=== PATIENT | female | born 1955 | race Caucasian/White ===

== ENCOUNTER 2020-06-25 13:49 | Emergency (ER) | payer MEDICARE, SELFPAY ==
[2020-06-25 16:20] VITALS: BP 145/79; PULSE 93; RESP 18; TEMP 37.3; O2SAT 100; BMI 22.0
--- NOTE | 2020-06-25 21:10 | ED.GENADULT ---
HPI - General Adult General Chief complaint: General Medical Stated complaint: multiple complaints Time Seen by Provider: 06/25/20 21:10 History of Present Illness HPI narrative: This is a 64-year-old female who presents with 4 weeks of numbness and lack of circulation from the neck down. She states that she has been evaluated by her primary care provider within the past week and at that time lab work was done. She expresses concern that nothing was found and yet she is still having her symptoms. She denies any fevers, chills, nausea, vomiting, abdominal discomfort, urinary symptoms, chest pain but does state that she is having some difficulty breathing constantly. She self endorses that she does have a history of anxiety in pressure in and when evaluated by her primary care provider she is upset that the recommendation after her workup was that she should probably see a psychiatrist. She states she does not feel like she needs to see a psychiatrist because she has a legitimate medical problems. Related Data Allergies Allergy/AdvReac Type Severity Reaction Status Date / Time silver Allergy Mild rash Unverified 06/07/20 16:03 [From TEGADERM AG MESH] penicillin V Allergy Unknown anaphylaxis Verified 01/10/20 00:00 Penicillins [PENICILLINS] Allergy Unknown UNKNOWN Unverified 06/07/20 16:03 Clindamycin HCl Allergy Unknown diarrhea Uncoded 01/10/20 00:00 Review of Systems Review of Systems: Pertinent positives and negatives as stated in HPI and 10 point review of systems is otherwise negative. PMFSH Past Medical History Source: nursing notes reviewed Social History Social History Advance Directives: No Advance Directives Information Provided: No Physical Exam Vital Signs and I&O and Narrative: Vital Signs and I&O: Vital Signs Temp 98.6 F 06/26/20 04:33 Pulse 64 06/26/20 04:33 Resp 16 06/26/20 04:33 BP 130/71 06/26/20 04:33 Pulse Ox 99 06/25/20 22:53 Intake & Output 06/25/20 06/25/20 06/26/20 06:59 18:59 06:59 Weight 54.683 kg Body Mass Index 22.0 VITAL SIGNS: Reviewed. GENERAL: Well developed, well nourished, in no acute distress. HEAD: Normocephalic/atraumatic, Posterior oropharynx was without edema, erythema or exudate. EYES: PERRLA, Pupils <>, EOMI intact without pain, no nystagmus/pallor/icterus noted EARS: Ext canals without abnormality, TMs non-bulging and non-erythematous NOSE: Nares patent bilateral OROPHARYNX: no oral lesions noted, posterior pharynx clear and non-erythematous without noted tonsillar enlargement/erythema/exudates NECK: Supple, no adenopathy LUNGS: Normal breath sounds. No adventitious sounds or accessory muscle use. SpO2<> CARDIOVASCULAR: Regular rate and rhythm without noted murmurs, no JVD or lower extremity edema. ABDOMEN: Soft, non-tender, non-distended with bowel sounds. No rigidity. No guarding. No palpable masses or hernias noted MUSCULOSKELETAL: No tenderness, deformities, or effusions noted on gross inspection. EXTREMITIES: No cyanosis, clubbing or edema. SKIN: Inspection of the skin reveals no rashes, ulcerations, jaundice, pallor, or petechiae. NEUROLOGIC: Alert and oriented x 3. Strength and sensation to light touch were grossly intact x 4. Course Course Course Narrative: This is a 64-year-old female with history and clinical presentation inconsistent with acute medical problem and suspect possible psychiatric component possibly major depression/anxiety but will medically clear prior to psychiatric evaluation. review of all investigations is negative for any acute findings to suggest infection, anemia, electrolyte, or inflammatory etiologies. 2358: I spoke with patient at bedside and she continues to endorse that she has no hips to sit on and that she has no blood flow to her head and her insides are compressed . When I informed her that her laboratory workup was within normal limits and that I thought it would be a good idea for her to speak with 1 of our crisis team members she adamantly states that this is not that type of a problem. She easily lifted her legs and got out of bed standing up and was observed to be bending over and picking the nurse call light off of the floor without any evidence of gait instability or ataxia. However, patient continues to describe deformed body parts or absent body parts. On further discussion, patient states that she is willing to speak with somebody from the crisis team. She is medically cleared for further psychiatric evaluation to address her concerns. On [facility] evaluation patient is neither a harm to herself or others and has good support systems with a at home. Patient was offered inpatient psych but declined and she was also provided an option for PHP which she also Declined. Patient declined waiting for psychiatric consultation and wishes to leave and go home. Patient is stable for discharge to home with further follow-up with her primary care provider. Medical Decision Making Lab Data Result diagrams: 06/25/20 22:02 06/25/20 22:02 Labs: Lab Results 06/25/20 06/25/20 06/25/20 Range/Units 22:02 22:02 22:02 WBC 5.3 (4.8-10.8) X10*3/uL RBC 4.51 (4.20-5.50) X10*6/uL Hgb 14.7 (12.0-16.0) g/dl Hct 43.2 (37-47) % MCV 95.8 (80-98) fL MCH 32.6 (27.0-33.0) pg MCHC 34.0 (31.0-35.0) g/dl RDW 12.8 (11.0-16.0) % Plt Count 227 (160-400) X10*3/uL MPV 10.7 (9.4-12.3) fL Immature Gran % (Auto) 0.2 (0.0-0.4) % Neut % (Auto) 49.8 (45-73) % Lymph % (Auto) 36.0 (20-40) % [place] % (Auto) 7.4 (2-11) % Eos % (Auto) 4.7 H (0-4) % Baso % (Auto) 1.9 (0-2) % Neut # (Auto) 2.6 (2.0-8.3) X10*3/uL Lymph # (Auto) 1.9 (1.2-4.9) X10*3/uL [place] # (Auto) 0.4 (0.1-1.2) X10*3/uL Eos # (Auto) 0.3 (0.0-0.4) X10*3/uL Baso # (Auto) 0.1 (0.0-0.2) X10*3/uL Abs Immat Gran (auto) 0.01 (0.00-0.03) X10*3/uL Absolute Nucleated RBC 0.000 (0.0-0.012) X10*3/uL Nucleated RBC % (auto) 0.0 (0.0-0.2) /100WBC ESR 12 (0-20) MM/HR Sodium 141 (135-145) mmol/L Potassium 4.1 (3.3-5.1) mmol/l Chloride 105 (96-108) mmol/L Carbon Dioxide 29 (22-29) mmol/L Anion Gap 11 L (12-20) BUN 13 (9-16) mg/dL Creatinine 0.78 (0.5-1.4) mg/dL Estim Creat Clear Calc 57.5 Estimated GFR > 60 Random Glucose 91 (60-115) mg/dL Calcium 9.7 (8.4-10.2) mg/dL Total Bilirubin 0.7 (0.0-1.0) mg/dL AST 11 (5-31) U/L ALT 8 (0-31) U/L Alkaline Phosphatase 45 (39-117) U/L Total Protein 6.9 (6.5-8.0) g/dL Albumin 4.4 (3.5-5.0) g/dL TSH 2.34 (0.32-4.0) mIU/mL Urine Color Urine Appearance Urine pH (5.0-8.0) Ur Specific [place] (1.005-1.025) Urine Protein (NEG-TRACE) MG/DL Urine Glucose (UA) (NEG) MG/DL Urine Ketones (NEG) MG/DL Urine Blood (NEG) Urine Nitrite (NEG) Ur Leukocyte Esterase (NEG) 06/26/20 Range/Units 00:05 WBC (4.8-10.8) X10*3/uL RBC (4.20-5.50) X10*6/uL Hgb (12.0-16.0) g/dl Hct (37-47) % MCV (80-98) fL MCH (27.0-33.0) pg MCHC (31.0-35.0) g/dl RDW (11.0-16.0) % Plt Count (160-400) X10*3/uL MPV (9.4-12.3) fL Immature Gran % (Auto) (0.0-0.4) % Neut % (Auto) (45-73) % Lymph % (Auto) (20-40) % [place] % (Auto) (2-11) % Eos % (Auto) (0-4) % Baso % (Auto) (0-2) % Neut # (Auto) (2.0-8.3) X10*3/uL Lymph # (Auto) (1.2-4.9) X10*3/uL [place] # (Auto) (0.1-1.2) X10*3/uL Eos # (Auto) (0.0-0.4) X10*3/uL Baso # (Auto) (0.0-0.2) X10*3/uL Abs Immat Gran (auto) (0.00-0.03) X10*3/uL Absolute Nucleated RBC (0.0-0.012) X10*3/uL Nucleated RBC % (auto) (0.0-0.2) /100WBC ESR (0-20) MM/HR Sodium (135-145) mmol/L Potassium (3.3-5.1) mmol/l Chloride (96-108) mmol/L Carbon Dioxide (22-29) mmol/L Anion Gap (12-20) BUN (9-16) mg/dL Creatinine (0.5-1.4) mg/dL Estim Creat Clear Calc Estimated GFR Random Glucose (60-115) mg/dL Calcium (8.4-10.2) mg/dL Total Bilirubin (0.0-1.0) mg/dL AST (5-31) U/L ALT (0-31) U/L Alkaline Phosphatase (39-117) U/L Total Protein (6.5-8.0) g/dL Albumin (3.5-5.0) g/dL TSH (0.32-4.0) mIU/mL Urine Color YELLOW Urine Appearance CLEAR Urine pH 6.5 (5.0-8.0) Ur Specific [place] 1.025 (1.005-1.025) Urine Protein NEG (NEG-TRACE) MG/DL Urine Glucose (UA) NEG (NEG) MG/DL Urine Ketones 5 (NEG) MG/DL Urine Blood NEG (NEG) Urine Nitrite NEG (NEG) Ur Leukocyte Esterase NEG (NEG) ECG Data Attestation: I personally reviewed and interpreted this ECG as follows: Prior ECG tracings: not available for review Interpretation: NSR, HR-67, no evidence of ischemia. Discharge Plan Discharge Clinical Impression: Encounter for medical screening examination, Delusion Patient Disposition: Home, Self-Care Instructions: Weakness (ED) Additional Instructions: 1. please follow-up with your primary care provider today for further outpatient arrangements to facilitate your current condition. 2. resume all home medications as prescribed. The patient and/or family acknowledge understanding of results (as applicable), diagnosis, treatment plan, need for follow up, and symptoms that should prompt a return to the emergency room. Referrals: Shavon Awad MD [Primary Care Provider] - 2 days (Patient will require further assistance in getting necessary outpatient treatment and resources.)
--- NOTE | 2020-06-25 21:14 | ECG_ITS ---
Test Reason : WEAKNESS Blood Pressure : / mmHG Vent. Rate : 067 BPM Atrial Rate : 067 BPM P-R Int : 140 ms QRS Dur : 080 ms QT Int : 408 ms P-R-T Axes : 070 056 042 degrees QTc Int : 431 ms Normal sinus rhythm Normal ECG When compared with ECG of 25-JUN-2016 14:24, No significant change was found Referred By: Shiloh Cazares Electronically Signed By:WALTER RENDON
--- NOTE | 2020-06-25 21:16 | XR_ITS ---
EXAMINATION: PORTABLE CHEST 1 VIEW CLINICAL INFORMATION: SOB . COMPARISON: No recent pertinent prior studies are available for comparison. TECHNIQUE: Portable frontal view of the chest was obtained. FINDINGS: The lungs are well expanded. Mild chronic appearing reticular markings but no superimposed focal infiltrate, effusion, edema, or pneumothorax. Cardiac and mediastinal silhouettes are within normal limits for technique. No acute bony abnormality seen. IMPRESSION: No evidence of acute disease.
[2020-06-25 21:18] VITALS: BP 101/77; PULSE 77; RESP 20; TEMP 36.7; O2SAT 99
[2020-06-25 22:09] LABS: MANUAL DIFF FLAG NO
[2020-06-25 22:10] LABS: Basophils Absolute Auto 0.1 X10*3/uL (0.0-0.2); Basophils Percent Auto 1.9 % (0-2); Eosinophils Absolute Auto 0.3 X10*3/uL (0.0-0.4); Eosinophils Percent Auto 4.7 % (0-4); Hematocrit 43.2 % (37-47); Hemoglobin 14.7 g/dl (12.0-16.0); Imm Gran Abs Auto 0.01 X10*3/uL (0.00-0.03); Imm Gran Pct Auto 0.2 % (0.0-0.4); Lymphocytes Absolute Auto 1.9 X10*3/uL (1.2-4.9); Mean Corpuscular Hemoglobin 32.6 pg (27.0-33.0); Mean Corpuscular Volume 95.8 fL (80-98); Mean Platelet Volume 10.7 fL (9.4-12.3); Monocytes Absolute Auto 0.4 X10*3/uL (0.1-1.2); Monocytes Percent Auto 7.4 % (2-11); Neutrophils Absolute Auto 2.6 X10*3/uL (2.0-8.3); Neutrophils Percent Auto 49.8 % (45-73); Platelet Count 227 X10*3/uL (160-400); Red Blood Count 4.51 X10*6/uL (4.20-5.50); Red Cell Distribution Width 12.8 % (11.0-16.0); White Blood Count 5.3 X10*3/uL (4.8-10.8)
[2020-06-25 22:33] LABS: Alanine Aminotransferase 8 U/L (0-31); Albumin Level 4.4 g/dL (3.5-5.0); Alkaline Phosphatase 45 U/L (39-117); Anion Gap 11 (12-20); Aspartate Amino Transferase 11 U/L (5-31); Bilirubin Total 0.7 mg/dL (0.0-1.0); Blood Urea Nitrogen 13 mg/dL (9-16); Calcium 9.7 mg/dL (8.4-10.2); Carbon Dioxide 29 mmol/L (22-29); Chloride 105 mmol/L (96-108); Creatinine Clr Calc Pharmacy 57.5; Estimated Glomerular Filt Rate > 60; Glucose Random 91 mg/dL (60-115); Potassium 4.1 mmol/l (3.3-5.1); Sodium 141 mmol/L (135-145); Total Protein 6.9 g/dL (6.5-8.0)
[2020-06-25 22:53] VITALS: BP 125/61; PULSE 70; RESP 20; TEMP 36.9; O2SAT 99
[2020-06-25 22:53] LABS: TSH reflex Free T4 2.34 mIU/mL (0.32-4.0)
[2020-06-25 22:55] LABS: Erythrocyte Sedimentation Rate 12 MM/HR (0-20)
--- NOTE | 2020-06-25 23:28 | PC.NURSE ---
pt ambulatory to bathroom, needed to hold onto staff member for steadiness.
[2020-06-26 00:15] LABS: Glucose Urine UA NEG (NEG); Leukocyte Esterase Urine NEG (NEG); Nitrite Urine NEG (NEG); PH 6.5 (5.0-8.0); Specific Gravity - Urine 1.025 (1.005-1.025); Urine Blood NEG (NEG); Urine Ketones 5 MG/DL (NEG); Urine Protein NEG (NEG-TRACE)
[2020-06-26 00:18] LABS: Appearance Urine CLEAR; Color Urine YELLOW
--- NOTE | 2020-06-26 00:27 | PC.NURSE ---
pt states that she has been laying in bed x 4 weeks, her back is stiff and she has had a difficult time eating. asked pt if she is depressed, pt became tearful and stated that both her pcp and think it's all in her head. pt insists there is something physically wrong with her.
--- NOTE | 2020-06-26 01:05 | PC.NURSE ---
pt requested hot tea, staff brought it to her.
--- NOTE | 2020-06-26 01:58 | PC.NURSE ---
MYLENE HERE FOR EVALUATION, REPORTS THAT THE CARE TEAM NEEDS TO HANDLE THE CASE FOR INSURANCE REASONS. KAI SPEAKING TO THE NOW. REPORTS THAT PT WAS DX WITH PSYCHSEMATIC PAIN DISORDER IN 2016.
--- NOTE | 2020-06-26 02:50 | PC.NURSE ---
care team at bedside
--- NOTE | 2020-06-26 04:02 | MHC.CARE ---
CARE team evaluated pt with recommendation for inpt psych. Pt not agreeable to admission and cannot be held or admitted involuntarily. Recommendations also made for PHP, which pt also declined. This editorial writer suggested that pt remain in ED overnight for a psychiatric consultation, which pt adamantly declined and asked to sign out AMA from emergency department. Finally, this editorial writer recommended that pt increase the frequency of her therapy sessions, which pt stated that for insurance reasons they cannot have sessions more than once per month. CARE team assessment completed and ED provider updated.
--- NOTE | 2020-06-26 04:18 | PC.NURSE ---
cory from care team reports she will reccommend to md that pt is ok for discharge.
[2020-06-26 04:33] VITALS: BP 130/71; PULSE 64; RESP 16; TEMP 37
== END 2020-06-26 06:30 | disposition home or self-care (01) ==
PROVIDERS: Emergency Provider Student in an Organized Health Care Education/Training Program; PCP Internal Medicine
DX: R20.0 Anesthesia of skin (principal); F22 Delusional disorders
CPT/HCPCS: 36415; 71045; 80053; 81003; 84443; 85025; 85652; 93005; 93010; 99283

== ENCOUNTER → 2020-06-29 10:21 | Outpatient (BNVA) | payer MEDICARE, SELFPAY | PROVIDERS: Visit Provider Internal Medicine Gastroenterology | DX: K58.9 Irritable bowel syndrome, unspecified (principal); F33.3 Major depressive disorder, recurrent, severe with psychotic symptoms | CPT/HCPCS: 99215 ==

== ENCOUNTER 2020-07-13 11:00 | Inpatient (IN) | payer MEDICARE, SELFPAY ==
[2020-07-13 11:28] VITALS: BP 104/77; PULSE 100; RESP 16; TEMP 37; O2SAT 97; BMI 21.2
[2020-07-13 11:45] VITALS: BP 104/77; PULSE 100; RESP 16; TEMP 37; O2SAT 96
--- NOTE | 2020-07-13 12:11 | PC.NURSE ---
pt telling long stories about life, marital situation, parents, etc. pt initially expresses difficulty breathing, but speaking in very long winded statements. appears to be in no apparent distress when speaking. pt expresses that her is old school and she believes he is embarassed by the thoughts the pt is expressing r/t issues with neck, spine and muscular system. pt sts i know people think im crazy because of how im feeling but i know something is wrong . awaiting primary eval.
--- NOTE | 2020-07-13 12:33 | PC.NURSE ---
provider at bedside for eval.
--- NOTE | 2020-07-13 12:45 | PC.NURSE ---
pt speaking to this rn following provider maricel. pt hyperfocused on what imaging will be ordered, told no imaging ordered at this time. pt upset that she did not get a physical exam . provider aware. pt sts this is also an abdominal problem, its wrapping around my legs, i cant breathe, my blood isnt moving into the proper channels, this isnt my normal skin color .
--- NOTE | 2020-07-13 13:08 | ED_ITS ---
HPI - Psych General Chief Complaint: Psychiatric Symptoms Stated Complaint: section 12 Time Seen by Provider: 07/13/20 13:06 Source: patient and EMS Mode of arrival: EMS Limitations: no limitations History of Present Illness HPI Narrative: patient comes to emergency room after being sectioned by a forensic social worker at the patient's home. Seems that the patient has been having delusions, per patient she cannot feel her body from the neck down, states that her neck is bent, stating that she cannot walk although she is walking around the room. patient denies suicidal or homicidal ideation. when asked why she came to emergency room, patient states that she was very anxious at home, and her family does not want to deal with her and therefore called EMS Related Data Home Medications Medication Instructions Recorded Confirmed multivitamin 1 tab PO DAILY 06/29/20 06/29/20 Allergies Allergy/AdvReac Type Severity Reaction Status Date / Time silver Allergy Mild rash Verified 06/29/20 10:24 [From TEGADERM AG MESH] penicillin V Allergy Unknown anaphylaxis Verified 06/29/20 10:24 Penicillins [PENICILLINS] Allergy Unknown UNKNOWN Verified 06/29/20 10:24 Clindamycin HCl Allergy Unknown diarrhea Uncoded 01/10/20 00:00 Review of Systems Review of Systems: Constitutional : No Weight loss, No Fever, No Chills, No Night Sweats, No Fatigue, No Malaise ENT/Mouth : No Hearing loss, No Ear Pain, No Nasal Congestion, No Sinus Pain, No Hoarseness, No sore throat, No Rhinorrhea, No Swallowing Difficulty Eyes: No Eye Pain, No Swelling, No Redness, No Foreign Body, No Discharge, No Vision Changes Cardiovascular : No Chest Pain, No SOB, No Dyspnea on Exertion, No Orthopnea, No Edema, No Palpitations Respiratory : No Cough, No Sputum, No Wheezing, No Smoke Exposure, No Dyspnea Gastrointestinal : No Nausea, No Vomiting, No Diarrhea, No Constipation, No abdominal Pain, No Hematochezia, No Melena Genitourinary : no irregular bleeding, No Dysuria, No Urinary Frequency, No Hematuria, No Urinary Incontinence, No Urgency, No Flank Pain, No Urinary Flow Changes, No Hesitancy Musculoskeletal : patient states she cannot feel the rest of her body from the head down Skin : No Skin Lesions, No rash Neuro : No Weakness, No Numbness, No Paresthesias, No Loss of Consciousness, No Dizziness, No Headache Psych : patient very anxious Heme/Lymph: No Bruising, No Bleeding,No Lymphadenopathy Endocrine : No Polyuria, No Polydipsia, No Temperature Intolerance PMFSH Past Medical History Medical History (Updated 07/13/20 @ 15:37 by Violeta Guerin MD) IBS (irritable bowel syndrome) Severe recurrent major depression with psychotic features Surgical History H/O colonoscopy Family History Family History (Updated 06/29/20 @ 08:37 by JAZLYN Fox) Father No problems noted. Mother Leukemia Cancer Family/Other Lung cancer Social History Social History (Updated 06/29/20 @ 10:27 by JAZLYN Fox) Household Members: Spouse Alcohol intake: never Smoking Status: Current every day smoker Use of substances other than those prescribed or required for medical reasons: No Advance Directives: No Advance Directives Information Provided: Yes Physical Exam Vital Signs: Vital Signs: Vital Signs Temp Pulse Resp BP Pulse Ox 07/13/20 11:45 98.6 F 100 16 104/77 96 07/13/20 11:28 98.6 F 100 16 104/77 97 Body Mass Index 21.2 Appearance: Alert. Oriented X3. No acute distress. Eyes: Pupils equal, round and reactive to light. ENT: Pharynx normal. Neck: Normal inspection. Neck supple. No lymph nodes noted. No crepitus CVS: Normal heart rate and rhythm. Pulses normal. Normal S1 and S2 Respiratory: No respiratory distress. Breath sounds normal. No Wheezing. No rales Abdomen: Soft and nontender. No rigidity. No distention. good BS x4 Skin: Skin warm and dry. Normal skin color. Normal skin turgor. Extremities: No lower extremity edema. No lower extremity edema. No Lacerations. No Rash Neuro: Oriented X 3. No motor deficit. No sensory deficit. Moving all extermities. No slurred speech. Course Course Course Narrative: [facility] consult pending. Recent labs pending patient is medically cleared to be seen by [facility] I discussed the labs with the patient, patient is requesting a pelvic exam. I discussed with the patient that a pelvic exam at this time is not indicated Patient refused [facility] consult, patient requesting to go home. Patient was seen here 06/25/2020 for similar complaints. [facility] evaluated the patient, they consider the patient has good support at home, patient declined other services. The family was called regarding the patient's discharge, the family is concerned that the patient's behavior has been worsening. This afternoon, the patient was found naked walking around her house, acting erratically. Patient is not suicidal or homicidal, patient demanding to go home. It is borderline whether the patient should be allowed to go home based on her wishes, however the salvatore bonds's family thinks that the patient is deteriorating. The crisis team and [facility] consider that the patient should be admitted, Dr. Lucas who has previously treated the patient was counseled that as well, recommends that the patient is admitted. Patient is now on Section 12, likely to be admitted to Sign out given to Dr. Wilder MDM - Psych Restraints Face to Face Assessment: Face to Face Assessment: Current Situation: After assessment of the patient, a review of the pertinent medical record and a discussion with nursing staff, I feel the patient requires a restrain intervention. Reaction To: [] Medical Condition: [] Behavioral State: [] Continued Need: [] Lab Data Result diagrams: 07/13/20 13:23 07/13/20 13:23 Labs: Lab Results 07/13/20 07/13/20 07/13/20 Range/Units 13:23 13:23 13:23 WBC 6.8 (4.8-10.8) X10*3/uL RBC 4.76 (4.20-5.50) X10*6/uL Hgb 15.2 (12.0-16.0) g/dl Hct 45.8 (37-47) % MCV 96.2 (80-98) fL MCH 31.9 (27.0-33.0) pg MCHC 33.2 (31.0-35.0) g/dl RDW 12.5 (11.0-16.0) % Plt Count 241 (160-400) X10*3/uL MPV 11.2 (9.4-12.3) fL Immature Gran % (Auto) 0.3 (0.0-0.4) % Neut % (Auto) 63.9 (45-73) % Lymph % (Auto) 25.6 (20-40) % [place] % (Auto) 5.6 (2-11) % Eos % (Auto) 3.1 (0-4) % Baso % (Auto) 1.5 (0-2) % Lymph # (Auto) 1.7 (1.2-4.9) X10*3/uL [place] # (Auto) 0.4 (0.1-1.2) X10*3/uL Eos # (Auto) 0.2 (0.0-0.4) X10*3/uL Baso # (Auto) 0.1 (0.0-0.2) X10*3/uL Abs Immat Gran (auto) 0.02 (0.00-0.03) X10*3/uL Absolute Neuts (auto) 4.3 (2.0-8.3) X10*3/uL Absolute Nucleated RBC 0.000 (0.0-0.012) X10*3/uL Nucleated RBC % (auto) 0.0 (0.0-0.2) /100WBC Sodium (135-145) mmol/L Potassium (3.3-5.1) mmol/l Chloride (96-108) mmol/L Carbon Dioxide (22-29) mmol/L Anion Gap (12-20) BUN (9-16) mg/dL Creatinine (0.5-1.4) mg/dL Estim Creat Clear Calc Estimated GFR Random Glucose (60-115) mg/dL Calcium (8.4-10.2) mg/dL Magnesium (1.6-2.6) mg/dL Total Bilirubin (0.0-1.0) mg/dL Direct Bilirubin (0.0-0.5) mg/dL AST (5-31) U/L ALT (0-31) U/L Alkaline Phosphatase (39-117) U/L Total Protein (6.5-8.0) g/dL Albumin (3.5-5.0) g/dL Urine Color STRAW Urine Appearance CLEAR Urine pH 6.5 (5.0-8.0) Ur Specific [place] <= 1.005 (1.005-1.025) Urine Protein NEG (NEG-TRACE) MG/DL Urine Glucose (UA) NEG (NEG) MG/DL Urine Ketones NEG (NEG) MG/DL Urine Blood TRACE (NEG) Urine Nitrite NEG (NEG) Ur Leukocyte Esterase NEG (NEG) Urine RBC 0-2 (0) /HPF Urine WBC 0 (0-4) /HPF Ur Squamous Epith Cells TRACE /LPF Urine Bacteria NONE /LPF Urine Opiates Screen Not Detected (Not Detect) Ur Barbiturates Screen Not Detected (Not Detect) Ur Phencyclidine Scrn Not Detected (Not Detect) Ur Amphetamines Screen Not Detected (Not Detect) U Benzodiazepines Scrn Not Detected (Not Detect) Urine Cocaine Screen Not Detected (Not Detect) U Marijuana (THC) Screen Not Detected (Not Detect) 07/13/20 Range/Units 13:23 WBC (4.8-10.8) X10*3/uL RBC (4.20-5.50) X10*6/uL Hgb (12.0-16.0) g/dl Hct (37-47) % MCV (80-98) fL MCH (27.0-33.0) pg MCHC (31.0-35.0) g/dl RDW (11.0-16.0) % Plt Count (160-400) X10*3/uL MPV (9.4-12.3) fL Immature Gran % (Auto) (0.0-0.4) % Neut % (Auto) (45-73) % Lymph % (Auto) (20-40) % [place] % (Auto) (2-11) % Eos % (Auto) (0-4) % Baso % (Auto) (0-2) % Lymph # (Auto) (1.2-4.9) X10*3/uL [place] # (Auto) (0.1-1.2) X10*3/uL Eos # (Auto) (0.0-0.4) X10*3/uL Baso # (Auto) (0.0-0.2) X10*3/uL Abs Immat Gran (auto) (0.00-0.03) X10*3/uL Absolute Neuts (auto) (2.0-8.3) X10*3/uL Absolute Nucleated RBC (0.0-0.012) X10*3/uL Nucleated RBC % (auto) (0.0-0.2) /100WBC Sodium 141 (135-145) mmol/L Potassium 4.4 (3.3-5.1) mmol/l Chloride 104 (96-108) mmol/L Carbon Dioxide 28 (22-29) mmol/L Anion Gap 13 (12-20) BUN 13 (9-16) mg/dL Creatinine 0.80 (0.5-1.4) mg/dL Estim Creat Clear Calc 61.3 Estimated GFR > 60 Random Glucose 108 (60-115) mg/dL Calcium 10.0 (8.4-10.2) mg/dL Magnesium 2.3 (1.6-2.6) mg/dL Total Bilirubin 0.6 (0.0-1.0) mg/dL Direct Bilirubin 0.3 (0.0-0.5) mg/dL AST 12 (5-31) U/L ALT 6 (0-31) U/L Alkaline Phosphatase 48 (39-117) U/L Total Protein 7.7 (6.5-8.0) g/dL Albumin 4.8 (3.5-5.0) g/dL Urine Color Urine Appearance Urine pH (5.0-8.0) Ur Specific [place] (1.005-1.025) Urine Protein (NEG-TRACE) MG/DL Urine Glucose (UA) (NEG) MG/DL Urine Ketones (NEG) MG/DL Urine Blood (NEG) Urine Nitrite (NEG) Ur Leukocyte Esterase (NEG) Urine RBC (0) /HPF Urine WBC (0-4) /HPF Ur Squamous Epith Cells /LPF Urine Bacteria /LPF Urine Opiates Screen (Not Detect) Ur Barbiturates Screen (Not Detect) Ur Phencyclidine Scrn (Not Detect) Ur Amphetamines Screen (Not Detect) U Benzodiazepines Scrn (Not Detect) Urine Cocaine Screen (Not Detect) U Marijuana (THC) Screen (Not Detect) Discharge Plan Discharge Clinical Impression: Somatic delusion, Acute anxiety Patient Disposition: Home, Self-Care Instructions: Anxiety (ED) Additional Instructions: you refused to be [facility]. Please follow-up with your primary care physician tomorrow. If you have any worsening or new symptoms, please return to the emergency room or call 911 Prescriptions: No Action multivitamin Tablet 1 tab PO DAILY RF: 0
[2020-07-13 13:34] LABS: MANUAL DIFF FLAG NO
[2020-07-13 13:40] LABS: Basophils Absolute Auto 0.1 X10*3/uL (0.0-0.2); Basophils Percent Auto 1.5 % (0-2); Eosinophils Absolute Auto 0.2 X10*3/uL (0.0-0.4); Eosinophils Percent Auto 3.1 % (0-4); Hematocrit 45.8 % (37-47); Hemoglobin 15.2 g/dl (12.0-16.0); Imm Gran Abs Auto 0.02 X10*3/uL (0.00-0.03); Imm Gran Pct Auto 0.3 % (0.0-0.4); Lymphocytes Absolute Auto 1.7 X10*3/uL (1.2-4.9); Lymphocytes Percent Auto 25.6 % (20-40); Mean Corpuscular HGB Conc 33.2 g/dl (31.0-35.0); Mean Corpuscular Hemoglobin 31.9 pg (27.0-33.0); Mean Corpuscular Volume 96.2 fL (80-98); Mean Platelet Volume 11.2 fL (9.4-12.3); Monocytes Absolute Auto 0.4 X10*3/uL (0.1-1.2); Monocytes Percent Auto 5.6 % (2-11); Neutrophils Absolute Auto 4.3 X10*3/uL (2.0-8.3); Neutrophils Percent Auto 63.9 % (45-73); Platelet Count 241 X10*3/uL (160-400); Red Blood Count 4.76 X10*6/uL (4.20-5.50); Red Cell Distribution Width 12.5 % (11.0-16.0); White Blood Count 6.8 X10*3/uL (4.8-10.8)
[2020-07-13 13:44] LABS: Glucose Urine UA NEG (NEG); Leukocyte Esterase Urine NEG (NEG); Nitrite Urine NEG (NEG); PH 6.5 (5.0-8.0); Specific Gravity - Urine <= 1.005 (1.005-1.025); Urine Blood TRACE (NEG); Urine Ketones NEG (NEG); Urine Protein NEG (NEG-TRACE)
[2020-07-13 13:57] LABS: Appearance Urine CLEAR; Color Urine STRAW
[2020-07-13 13:58] LABS: RBC Urine 0-2 /HPF (0); Squamous Epithelial Cell Urine TRACE /LPF; WBC Urine 0 /HPF (0-4)
[2020-07-13 14:07] LABS: Alanine Aminotransferase 6 U/L (0-31); Albumin Level 4.8 g/dL (3.5-5.0); Alkaline Phosphatase 48 U/L (39-117); Anion Gap 13 (12-20); Aspartate Amino Transferase 12 U/L (5-31); Bilirubin Direct 0.3 mg/dL (0.0-0.5); Bilirubin Total 0.6 mg/dL (0.0-1.0); Blood Urea Nitrogen 13 mg/dL (9-16); Carbon Dioxide 28 mmol/L (22-29); Chloride 104 mmol/L (96-108); Creatinine Clr Calc Pharmacy 61.3; Estimated Glomerular Filt Rate > 60; Glucose Random 108 mg/dL (60-115); Magnesium 2.3 mg/dL (1.6-2.6); Potassium 4.4 mmol/l (3.3-5.1); Sodium 141 mmol/L (135-145); Total Protein 7.7 g/dL (6.5-8.0)
[2020-07-13 14:09] LABS: Amphetamine Screen Urine Not Detected (Not Detect); Barbiturates, Urine Not Detected (Not Detect); Benzodiazepines Screen Urine Not Detected (Not Detect); Cannabinoid Screen Urine Not Detected (Not Detect); Cocaine Screen Urine Not Detected (Not Detect); Opiate Screen Urine Not Detected (Not Detect); Phencyclidine Screen Urine Not Detected (Not Detect)
--- NOTE | 2020-07-13 14:24 | PC.NURSE ---
pt ambulating around millieu w slow steady gait w stand by assist. making phone calls to family, hopeful affect.
--- NOTE | 2020-07-13 15:53 | PC.NURSE ---
pt would like to speak to provider, expressing that she does not believe this is the level of care she needs. she sts all of the tests you guys ran today are the same exact lab tests rsoalio been having at my primary care office and it is answering nothing . pt denies any si/hi at this time. alert and oriented x 4. provider at bedside for consultation w pt. pt asking if she may go home, provider agreeable. this rn speaking w both CARE team and [facility] staff. [facility] sts pt bed search exhausted for day but on-scene clinician suggest pt go to inpt psych bed. provider comfortable w discharge, dispo filed. care team to consult w n
--- NOTE | 2020-07-13 17:14 | MHC.CARE ---
CARE Team is made aware that pt was evaluated in the community by [facility] crisis and was found to meet criteria for involuntary inpatient level of care due to an inability to care for herself in the community. Once at the ED, there was a question about whether or not it was appropriate to hold the patient for involuntary admission, as pt was requesting to leave. CARE Team communicates with Dr. Lucas, who reviews the crisis evaluation and pt's history. Dr Lucas determines that patient should be admitted involuntarily. CARE Team relays this recommendation to Dr. Guerin.
--- NOTE | 2020-07-13 18:56 | ECG_ITS ---
Test Reason : CRISIS Blood Pressure : / mmHG Vent. Rate : 072 BPM Atrial Rate : 072 BPM P-R Int : 134 ms QRS Dur : 088 ms QT Int : 386 ms P-R-T Axes : 075 067 034 degrees QTc Int : 422 ms Normal sinus rhythm Normal ECG When compared with ECG of 25-JUN-2020 21:23, No significant change was found Referred By: Hermelinda Bailey Electronically Signed By:ROSA MAZARIEGOS MD
[2020-07-13 20:25] LABS: SARS COV2 PCR INHOUSE NEGATIVE (Negative)
--- NOTE | 2020-07-13 22:30 | MHC.CARE ---
CARE team met with this patient in ED pod bed 5 to facilitate transfer/admission to . Patient is being admitted voluntarily and signed CV. Patient was visibly upset and expressing desire to complete three-day notice. CARE team updated M5.
[2020-07-13 22:40] VITALS: BP 131/57; PULSE 87; TEMP 37.2
[2020-07-14] MEDS: Acetaminophen 325 MG TABLET 650 MG PO (01:36)
[2020-07-14] MEDS: LORazepam 0.5 MG TABLET PO ×3 (09:15→20:19)
[2020-07-14 09:29] LABS: Estimated Average Glucose 103 mg/dL; Hemoglobin A1c % 5.2 %
[2020-07-14 09:54] LABS: Cholesterol 197 mg/dL; HDL Cholesterol 58 mg/dL; LDL Cholesterol Calculated 123 mg/dl; Triglycerides 84 mg/dL
[2020-07-14 10:17] LABS: Free T4 (Free Thyroxine) 0.98 ng/dL (0.71-1.85); Thyroid Stimulating Hormone 1.28 mIU/mL (0.32-4.0)
--- NOTE | 2020-07-14 11:00 | P.HPPS_ITS ---
HPI Chief Complaint: psychiatric symptoms somatic delusions Sources of Information: patient interviewed, chart reviewed and crisis/core team assessment reviewed HPI Narrative: pt arrived to ED via ambulance after family called EMS due to patient psychosis and escalating inability to function. Pt is very psychotic, depressed, and anxious. She reportedly had increasing conflict with family members and is paranoid about them treating her badly and not understanding her. She reports she sat on the couch for months during the pandemic and now she has no blood in her body. She reports all the blood in her arms and legs is gone. she only has blood near her neck and head. She reports severe pain throughout her body despite no medical etiology . She reports she is unable to stand up despite standing up and walking without obvious problem; she is very depressed and anxious. Past Psychiatric History: Pt is known to and has had 2 other admission, most recent in 2016. 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 She was apparently stable since then until this admission. Medical Evaluation Reviewed: Yes no change since medically cleared in ED ROS: Constitutional : No Weight loss, No Fever, No Chills, No Night Sweats, No Fatigue, No Malaise ENT/Mouth : No Hearing loss, No Ear Pain, No Nasal Congestion, No Sinus Pain, No Hoarseness, No sore throat, No Rhinorrhea, No Swallowing Difficulty Eyes: No Eye Pain, No Swelling, No Redness, No Foreign Body, No Discharge, No Vision Changes Cardiovascular : No Chest Pain, No SOB,No Edema, No Palpitations Respiratory : No Cough, No Sputum, No Wheezing, No Smoke Exposure, No Dyspnea Gastrointestinal : No Nausea, No Vomiting, No Diarrhea, No Constipation, No abdominal Pain, No Hematochezia, No Melena Genitourinary : no irregular bleeding, No Dysuria, No Urinary Frequency, No Hematuria, No Urinary Incontinence, No Urgency, No Flank Pain, No Urinary Flow Changes, No Hesitancy Musculoskeletal : patient states she has no blood in her body and can't feel the rest of her body from the head down Skin : No Skin Lesions, No rash Neuro : No Weakness, No Numbness, No Paresthesias, No Loss of Consciousness, No Dizziness, No Headache Psych : patient very anxious Heme/Lymph: No Bruising, No Bleeding,No Lymphadenopathy Endocrine : No Polyuria, No Polydipsia, No Temperature Intolerance [facility] Medical History IBS (irritable bowel syndrome) Severe recurrent major depression with psychotic features Narrative: reviewed ED note medically cleared in ED history og IBS Surgical History H/O colonoscopy Family History: non contributory Social History: lives with Substance History: none known Trauma History: none known Diagnostics Vital Signs (24Hr): Vital Signs - 24 hr 07/13/20 22:40 07/14/20 11:26 Temperature 99.0 F Pulse Rate 87 Respiratory Rate 87 H Blood Pressure 131/57 L 124/70 Body Mass Index 21.2 Labs Results: 07/13/20 13:23 07/13/20 13:23 Labs: Laboratory Results - last 48 hr 07/13/20 07/13/20 07/13/20 13:23 13:23 13:23 WBC 6.8 RBC 4.76 Hgb 15.2 Hct 45.8 MCV 96.2 MCH 31.9 MCHC 33.2 RDW 12.5 Plt Count 241 MPV 11.2 Immature Gran % (Auto) 0.3 Neut % (Auto) 63.9 Lymph % (Auto) 25.6 [place] % (Auto) 5.6 Eos % (Auto) 3.1 Baso % (Auto) 1.5 Lymph # (Auto) 1.7 [place] # (Auto) 0.4 Eos # (Auto) 0.2 Baso # (Auto) 0.1 Abs Immat Gran (auto) 0.02 Absolute Neuts (auto) 4.3 Absolute Nucleated RBC 0.000 Nucleated RBC % (auto) 0.0 Sodium Potassium Chloride Carbon Dioxide Anion Gap BUN Creatinine Estim Creat Clear Calc Estimated GFR Random Glucose Estimat Average Glucose Hemoglobin A1c % Calcium Magnesium Total Bilirubin Direct Bilirubin AST ALT Alkaline Phosphatase Total Protein Albumin Triglycerides Cholesterol LDL Cholesterol, Calc HDL Cholesterol TSH Free T4 Urine Color STRAW Urine Appearance CLEAR Urine pH 6.5 Ur Specific [place] <= 1.005 Urine Protein NEG Urine Glucose (UA) NEG Urine Ketones NEG Urine Blood TRACE Urine Nitrite NEG Ur Leukocyte Esterase NEG Urine RBC 0-2 Urine WBC 0 Ur Squamous Epith Cells TRACE Urine Bacteria NONE Urine Opiates Screen Not Detected Ur Barbiturates Screen Not Detected Ur Phencyclidine Scrn Not Detected Ur Amphetamines Screen Not Detected U Benzodiazepines Scrn Not Detected Urine Cocaine Screen Not Detected U Marijuana (THC) Screen Not Detected Coronavirus (PCR) 07/13/20 07/13/20 07/14/20 13:23 19:15 07:59 WBC RBC Hgb Hct MCV MCH MCHC RDW Plt Count MPV Immature Gran % (Auto) Neut % (Auto) Lymph % (Auto) [place] % (Auto) Eos % (Auto) Baso % (Auto) Lymph # (Auto) [place] # (Auto) Eos # (Auto) Baso # (Auto) Abs Immat Gran (auto) Absolute Neuts (auto) Absolute Nucleated RBC Nucleated RBC % (auto) Sodium 141 Potassium 4.4 Chloride 104 Carbon Dioxide 28 Anion Gap 13 BUN 13 Creatinine 0.80 Estim Creat Clear Calc 61.3 Estimated GFR > 60 Random Glucose 108 Estimat Average Glucose 103 Hemoglobin A1c % 5.2 Calcium 10.0 Magnesium 2.3 Total Bilirubin 0.6 Direct Bilirubin 0.3 AST 12 ALT 6 Alkaline Phosphatase 48 Total Protein 7.7 Albumin 4.8 Triglycerides Cholesterol LDL Cholesterol, Calc HDL Cholesterol TSH Free T4 Urine Color Urine Appearance Urine pH Ur Specific [place] Urine Protein Urine Glucose (UA) Urine Ketones Urine Blood Urine Nitrite Ur Leukocyte Esterase Urine RBC Urine WBC Ur Squamous Epith Cells Urine Bacteria Urine Opiates Screen Ur Barbiturates Screen Ur Phencyclidine Scrn Ur Amphetamines Screen U Benzodiazepines Scrn Urine Cocaine Screen U Marijuana (THC) Screen Coronavirus (PCR) NEGATIVE 07/14/20 07:59 WBC RBC Hgb Hct MCV MCH MCHC RDW Plt Count MPV Immature Gran % (Auto) Neut % (Auto) Lymph % (Auto) [place] % (Auto) Eos % (Auto) Baso % (Auto) Lymph # (Auto) [place] # (Auto) Eos # (Auto) Baso # (Auto) Abs Immat Gran (auto) Absolute Neuts (auto) Absolute Nucleated RBC Nucleated RBC % (auto) Sodium Potassium Chloride Carbon Dioxide Anion Gap BUN Creatinine Estim Creat Clear Calc Estimated GFR Random Glucose Estimat Average Glucose Hemoglobin A1c % Calcium Magnesium Total Bilirubin Direct Bilirubin AST ALT Alkaline Phosphatase Total Protein Albumin Triglycerides 84 Cholesterol 197 LDL Cholesterol, Calc 123 HDL Cholesterol 58 TSH 1.28 Free T4 0.98 Urine Color Urine Appearance Urine pH Ur Specific [place] Urine Protein Urine Glucose (UA) Urine Ketones Urine Blood Urine Nitrite Ur Leukocyte Esterase Urine RBC Urine WBC Ur Squamous Epith Cells Urine Bacteria Urine Opiates Screen Ur Barbiturates Screen Ur Phencyclidine Scrn Ur Amphetamines Screen U Benzodiazepines Scrn Urine Cocaine Screen U Marijuana (THC) Screen Coronavirus (PCR) Meds/Allergies Meds Home Medications Medication Instructions Recorded Confirmed Type multivitamin 1 tab PO DAILY 06/29/20 06/29/20 History Allergies Allergies Allergy/AdvReac Type Severity Reaction Status Date / Time silver Allergy Mild rash Verified 06/29/20 10:24 [From [email or web address] MESH] penicillin V Allergy Unknown anaphylaxis Verified 06/29/20 10:24 Penicillins [PENICILLINS] Allergy Unknown UNKNOWN Verified 06/29/20 10:24 Clindamycin HCl Allergy Unknown diarrhea Uncoded 01/10/20 00:00 Mental Status Exam Mental Status Exam Patient Appearance: Disheveled and Unkempt Patient Orientation: Person, Place and Situation Level of Consciousness: Restless and Alert Patient Behavior: Talkative, Suspicious, Restless and Anxious Mood Description: Suspicious, Depressed, Anxious, Sad, Nervous, Apprehensive and Expansive Affect Description: Anxious and Sad Patient Cognition Impaired: Yes Ability to Follow Directions: Poor Speech Pattern: Perseverating, Rambling and Excessive Delusions: Paranoid Ideation, Present and Bizarre Perceptual Disturbances: Derealization Thought Process: Illogical and Rumination Thought Content: positive for Obsessional Thoughts, positive for Perseveration, positive for Preoccupation and positive for Hypochondriasis Depressive Symptoms: Increased Anxiety, Insomnia, Changes in Appetite, Hopelessness, Unexplained Headaches, Unexplained Stomach Pain, Difficulty Concentrating and Back Pain Abnormal Motor Activity Signs and Symptoms: Restlessness Judgement: Poor Assessment & Plan Assessment & Plan (1) Somatic delusion: Status: Acute Code(s): F22 - Delusional disorders (2) Acute anxiety: Status: Acute Code(s): F41.9 - Anxiety disorder, unspecified (3) IBS (irritable bowel syndrome): Status: Acute Code(s): K58.9 - Irritable bowel syndrome without diarrhea (4) Depression: Status: Acute Code(s): F32.9 - Major depressive disorder, single episode, unspecified Assessment and Plan: Start on Zydis 5 mg at bedtime for delusion and anxiety encourage food intake and fluids Collect collateral history Groups Safety evaluation Skills Patient educated on: diagnosis, medication risk/benefits and substance abuse Informed Consent: further education needed Reason for continued inpatient stay Substantial Risk for: harm to self, inability to function and rapid decompensation and med/psych decompensation
[2020-07-14 11:26] VITALS: BP 124/70; RESP 87
[2020-07-14] MEDS: Ibuprofen 400 MG TABLET PO ×2 (14:23→20:14)
[2020-07-14 18:00] VITALS: BP 110/69; PULSE 83; TEMP 36.6
[2020-07-15 07:42] VITALS: BP 149/73; PULSE 65; TEMP 36.9
[2020-07-15] MEDS: Ibuprofen 400 MG TABLET PO ×2 (08:59→20:09)
[2020-07-15] MEDS: LORazepam 0.5 MG TABLET PO ×2 (08:59→20:09)
--- NOTE | 2020-07-15 10:43 | HO.PSYCHPN ---
Subjective Subjective Date of Service: 07/15/20 Reason For Visit: psychiatric symptoms somatic delusions Subjective Notes: Section 12B Interim History: She continues to be somatically focused with catastrophic somatic delusions such as she has no blood in her body. She reports all the blood in her arms and legs is gone. she only has blood near her neck and head. She reports severe pain throughout her body despite no known medical etiology . She reports she is unable to stand up despite standing up and walking without obvious problem; she is very depressed and anxious. She ruminates and preseverate on somatic delusions Medication Compliance: Yes Side effects from medications: No Attending Groups: No Review of Systems Review of Systems Constitutional : No Weight loss, No Fever, No Chills, No Night Sweats, No Fatigue, No Malaise ENT/Mouth : No Hearing loss, No Ear Pain, No Nasal Congestion, No Sinus Pain, No Hoarseness, No sore throat, No Rhinorrhea, No Swallowing Difficulty Eyes: No Eye Pain, No Swelling, No Redness, No Foreign Body, No Discharge, No Vision Changes Cardiovascular : No Chest Pain, No SOB, No Dyspnea on Exertion, No Orthopnea, No Edema, No Palpitations Respiratory : No Cough, No Sputum, No Wheezing, No Smoke Exposure, No Dyspnea Gastrointestinal : No Nausea, No Vomiting, No Diarrhea, No Constipation, No abdominal Pain, No Hematochezia, No Melena Genitourinary : no irregular bleeding, No Dysuria, No Urinary Frequency, No Hematuria, No Urinary Incontinence, No Urgency, No Flank Pain, No Urinary Flow Changes, No Hesitancy Musculoskeletal : patient states she cannot feel the rest of her body from the head down Skin : No Skin Lesions, No rash Neuro : No Weakness, No Numbness, No Paresthesias, No Loss of Consciousness, No Dizziness, No Headache Psych : patient very anxious Heme/Lymph: No Bruising, No Bleeding,No Lymphadenopathy Endocrine : No Polyuria, No Polydipsia, No Temperature Intolerance Mental Status Exam Mental Status Exam Patient Appearance: Disheveled and Unkempt Patient Orientation: Person, Place and Situation Level of Consciousness: Restless and Alert Patient Behavior: Talkative, Suspicious, Restless and Anxious Mood Description: Suspicious, Depressed, Anxious, Sad, Nervous, Apprehensive and Expansive Affect Description: Anxious and Sad Patient Cognition Impaired: Yes Ability to Follow Directions: Poor Speech Pattern: Perseverating, Rambling and Excessive Delusions: Paranoid Ideation, Present and Bizarre Perceptual Disturbances: Derealization Thought Process: Illogical and Rumination Thought Content: positive for Obsessional Thoughts, positive for Perseveration, positive for Preoccupation and positive for Hypochondriasis Depressive Symptoms: Increased Anxiety, Insomnia, Changes in Appetite, Hopelessness, Unexplained Headaches, Unexplained Stomach Pain, Difficulty Concentrating and Back Pain Abnormal Motor Activity Signs and Symptoms: Restlessness Judgement: Poor Diagnostics Vital Signs (24Hr): Vital Signs - 24 hr 07/14/20 11:26 07/14/20 18:00 07/15/20 07:42 Temperature 98 F 98.4 F Pulse Rate 83 65 Respiratory Rate 87 H Blood Pressure 124/70 110/69 149/73 H Body Mass Index 21.2 Labs Results: 07/13/20 13:23 07/13/20 13:23 Labs: Laboratory Results - last 48 hr 07/13/20 07/13/20 07/13/20 13:23 13:23 13:23 WBC 6.8 RBC 4.76 Hgb 15.2 Hct 45.8 MCV 96.2 MCH 31.9 MCHC 33.2 RDW 12.5 Plt Count 241 MPV 11.2 Immature Gran % (Auto) 0.3 Neut % (Auto) 63.9 Lymph % (Auto) 25.6 [place] % (Auto) 5.6 Eos % (Auto) 3.1 Baso % (Auto) 1.5 Lymph # (Auto) 1.7 [place] # (Auto) 0.4 Eos # (Auto) 0.2 Baso # (Auto) 0.1 Abs Immat Gran (auto) 0.02 Absolute Neuts (auto) 4.3 Absolute Nucleated RBC 0.000 Nucleated RBC % (auto) 0.0 Sodium Potassium Chloride Carbon Dioxide Anion Gap BUN Creatinine Estim Creat Clear Calc Estimated GFR Random Glucose Estimat Average Glucose Hemoglobin A1c % Calcium Magnesium Total Bilirubin Direct Bilirubin AST ALT Alkaline Phosphatase Total Protein Albumin Triglycerides Cholesterol LDL Cholesterol, Calc HDL Cholesterol TSH Free T4 Urine Color STRAW Urine Appearance CLEAR Urine pH 6.5 Ur Specific [place] <= 1.005 Urine Protein NEG Urine Glucose (UA) NEG Urine Ketones NEG Urine Blood TRACE Urine Nitrite NEG Ur Leukocyte Esterase NEG Urine RBC 0-2 Urine WBC 0 Ur Squamous Epith Cells TRACE Urine Bacteria NONE Urine Opiates Screen Not Detected Ur Barbiturates Screen Not Detected Ur Phencyclidine Scrn Not Detected Ur Amphetamines Screen Not Detected U Benzodiazepines Scrn Not Detected Urine Cocaine Screen Not Detected U Marijuana (THC) Screen Not Detected Coronavirus (PCR) 07/13/20 07/13/20 07/14/20 13:23 19:15 07:59 WBC RBC Hgb Hct MCV MCH MCHC RDW Plt Count MPV Immature Gran % (Auto) Neut % (Auto) Lymph % (Auto) [place] % (Auto) Eos % (Auto) Baso % (Auto) Lymph # (Auto) [place] # (Auto) Eos # (Auto) Baso # (Auto) Abs Immat Gran (auto) Absolute Neuts (auto) Absolute Nucleated RBC Nucleated RBC % (auto) Sodium 141 Potassium 4.4 Chloride 104 Carbon Dioxide 28 Anion Gap 13 BUN 13 Creatinine 0.80 Estim Creat Clear Calc 61.3 Estimated GFR > 60 Random Glucose 108 Estimat Average Glucose 103 Hemoglobin A1c % 5.2 Calcium 10.0 Magnesium 2.3 Total Bilirubin 0.6 Direct Bilirubin 0.3 AST 12 ALT 6 Alkaline Phosphatase 48 Total Protein 7.7 Albumin 4.8 Triglycerides Cholesterol LDL Cholesterol, Calc HDL Cholesterol TSH Free T4 Urine Color Urine Appearance Urine pH Ur Specific [place] Urine Protein Urine Glucose (UA) Urine Ketones Urine Blood Urine Nitrite Ur Leukocyte Esterase Urine RBC Urine WBC Ur Squamous Epith Cells Urine Bacteria Urine Opiates Screen Ur Barbiturates Screen Ur Phencyclidine Scrn Ur Amphetamines Screen U Benzodiazepines Scrn Urine Cocaine Screen U Marijuana (THC) Screen Coronavirus (PCR) NEGATIVE 07/14/20 07:59 WBC RBC Hgb Hct MCV MCH MCHC RDW Plt Count MPV Immature Gran % (Auto) Neut % (Auto) Lymph % (Auto) [place] % (Auto) Eos % (Auto) Baso % (Auto) Lymph # (Auto) [place] # (Auto) Eos # (Auto) Baso # (Auto) Abs Immat Gran (auto) Absolute Neuts (auto) Absolute Nucleated RBC Nucleated RBC % (auto) Sodium Potassium Chloride Carbon Dioxide Anion Gap BUN Creatinine Estim Creat Clear Calc Estimated GFR Random Glucose Estimat Average Glucose Hemoglobin A1c % Calcium Magnesium Total Bilirubin Direct Bilirubin AST ALT Alkaline Phosphatase Total Protein Albumin Triglycerides 84 Cholesterol 197 LDL Cholesterol, Calc 123 HDL Cholesterol 58 TSH 1.28 Free T4 0.98 Urine Color Urine Appearance Urine pH Ur Specific [place] Urine Protein Urine Glucose (UA) Urine Ketones Urine Blood Urine Nitrite Ur Leukocyte Esterase Urine RBC Urine WBC Ur Squamous Epith Cells Urine Bacteria Urine Opiates Screen Ur Barbiturates Screen Ur Phencyclidine Scrn Ur Amphetamines Screen U Benzodiazepines Scrn Urine Cocaine Screen U Marijuana (THC) Screen Coronavirus (PCR) Medications Medications Current Medications Generic Name Dose Route Start Last Admin Trade Name Freq PRN Reason Stop Dose Admin Acetaminophen 650 mg 07/13/20 22:49 07/14/20 01:36 Acetaminophen 325 Mg Tablet PO 650 mg Q6H PRN Administration Headache/Pain Mild Scale (1-3) Al Hydroxide/Mg Hydroxide 30 ml 07/13/20 22:49 Magnesium Hydrox/Alum Hydrox 30 Ml Oral.Susp PO Q6H PRN Heartburn/Nausea Hydroxyzine HCl 25 mg 07/13/20 22:49 Hydroxyzine Hcl 25 Mg Tablet PO BEDTIME PRN Anxiety Ibuprofen 400 mg 07/13/20 22:58 07/15/20 08:59 Ibuprofen 400 Mg Tablet PO 400 mg Q6H PRN Administration Pain, Moderate (Pain Scale 4-6 Lorazepam 0.5 mg 07/13/20 22:53 07/15/20 08:59 Lorazepam 0.5 Mg Tablet PO 0.5 mg Q4H PRN Administration Anxiety Magnesium Hydroxide 30 ml 07/13/20 22:49 Milk Of Magnesia 30 Ml Oral.Susp PO DAILY PRN Constipation Nicotine Polacrilex 4 mg 07/13/20 22:49 Nicotine Polacrilex 2 Mg Gum BUCCAL Q2H PRN Nicotine Cravings Olanzapine 2.5 mg 07/13/20 22:51 Olanzapine 2.5 Mg Tablet PO Q4H PRN Psychosis,delusions, ruminatin Olanzapine 5 mg 07/14/20 21:00 07/14/20 20:18 Olanzapine Odt 10 Mg Tab.Rapdis TRANSLINGU Not Given BEDTIME RAVINDER Trazodone HCl 50 mg 07/13/20 22:49 Trazodone Hcl 50 Mg Tablet PO BEDTIME PRN Insomnia Allergies Allergies Allergy/AdvReac Type Severity Reaction Status Date / Time silver Allergy Mild rash Verified 06/29/20 10:24 [From [employer] [facility] MESH] penicillin V Allergy Unknown anaphylaxis Verified 06/29/20 10:24 Penicillins [PENICILLINS] Allergy Unknown UNKNOWN Verified 06/29/20 10:24 Clindamycin HCl Allergy Unknown diarrhea Uncoded 01/10/20 00:00 Assessment & Plan Assessment & Plan (1) Depression: Status: Acute Code(s): F32.9 - Major depressive disorder, single episode, unspecified (2) Somatic delusion: Status: Acute Code(s): F22 - Delusional disorders (3) Acute anxiety: Status: Acute Code(s): F41.9 - Anxiety disorder, unspecified (4) IBS (irritable bowel syndrome): Status: Acute Code(s): K58.9 - Irritable bowel syndrome without diarrhea Assessment and Plan: severe somatic delusional disorder with depression and anxiety continue treatment plan optimize dose of zyprex'consider ECT as helpful in past Collect collateral history Groups Safety evaluation Skills Patient educated on: diagnosis, medication risk/benefits and substance abuse Informed Consent: further education needed Reason for continued inpatient stay Substantial Risk for: harm to self, inability to function and rapid decompensation and med/psych decompensation Greater than 50% of the session was spent on counseling and/or coordination of care
--- NOTE | 2020-07-15 11:01 | HO.PSYCHPN ---
Subjective Subjective Reason For Visit: psychiatric symptoms somatic delusions Diagnostics Vital Signs (24Hr): Vital Signs - 24 hr 07/14/20 11:26 07/14/20 18:00 07/15/20 07:42 Temperature 98 F 98.4 F Pulse Rate 83 65 Respiratory Rate 87 H Blood Pressure 124/70 110/69 149/73 H Body Mass Index 21.2 Labs Results: 07/13/20 13:23 07/13/20 13:23 Labs: Laboratory Results - last 48 hr 07/13/20 07/13/20 07/13/20 13:23 13:23 13:23 WBC 6.8 RBC 4.76 Hgb 15.2 Hct 45.8 MCV 96.2 MCH 31.9 MCHC 33.2 RDW 12.5 Plt Count 241 MPV 11.2 Immature Gran % (Auto) 0.3 Neut % (Auto) 63.9 Lymph % (Auto) 25.6 [place] % (Auto) 5.6 Eos % (Auto) 3.1 Baso % (Auto) 1.5 Lymph # (Auto) 1.7 [place] # (Auto) 0.4 Eos # (Auto) 0.2 Baso # (Auto) 0.1 Abs Immat Gran (auto) 0.02 Absolute Neuts (auto) 4.3 Absolute Nucleated RBC 0.000 Nucleated RBC % (auto) 0.0 Sodium Potassium Chloride Carbon Dioxide Anion Gap BUN Creatinine Estim Creat Clear Calc Estimated GFR Random Glucose Estimat Average Glucose Hemoglobin A1c % Calcium Magnesium Total Bilirubin Direct Bilirubin AST ALT Alkaline Phosphatase Total Protein Albumin Triglycerides Cholesterol LDL Cholesterol, Calc HDL Cholesterol TSH Free T4 Urine Color STRAW Urine Appearance CLEAR Urine pH 6.5 Ur Specific [place] <= 1.005 Urine Protein NEG Urine Glucose (UA) NEG Urine Ketones NEG Urine Blood TRACE Urine Nitrite NEG Ur Leukocyte Esterase NEG Urine RBC 0-2 Urine WBC 0 Ur Squamous Epith Cells TRACE Urine Bacteria NONE Urine Opiates Screen Not Detected Ur Barbiturates Screen Not Detected Ur Phencyclidine Scrn Not Detected Ur Amphetamines Screen Not Detected U Benzodiazepines Scrn Not Detected Urine Cocaine Screen Not Detected U Marijuana (THC) Screen Not Detected Coronavirus (PCR) 07/13/20 07/13/20 07/14/20 13:23 19:15 07:59 WBC RBC Hgb Hct MCV MCH MCHC RDW Plt Count MPV Immature Gran % (Auto) Neut % (Auto) Lymph % (Auto) [place] % (Auto) Eos % (Auto) Baso % (Auto) Lymph # (Auto) [place] # (Auto) Eos # (Auto) Baso # (Auto) Abs Immat Gran (auto) Absolute Neuts (auto) Absolute Nucleated RBC Nucleated RBC % (auto) Sodium 141 Potassium 4.4 Chloride 104 Carbon Dioxide 28 Anion Gap 13 BUN 13 Creatinine 0.80 Estim Creat Clear Calc 61.3 Estimated GFR > 60 Random Glucose 108 Estimat Average Glucose 103 Hemoglobin A1c % 5.2 Calcium 10.0 Magnesium 2.3 Total Bilirubin 0.6 Direct Bilirubin 0.3 AST 12 ALT 6 Alkaline Phosphatase 48 Total Protein 7.7 Albumin 4.8 Triglycerides Cholesterol LDL Cholesterol, Calc HDL Cholesterol TSH Free T4 Urine Color Urine Appearance Urine pH Ur Specific [place] Urine Protein Urine Glucose (UA) Urine Ketones Urine Blood Urine Nitrite Ur Leukocyte Esterase Urine RBC Urine WBC Ur Squamous Epith Cells Urine Bacteria Urine Opiates Screen Ur Barbiturates Screen Ur Phencyclidine Scrn Ur Amphetamines Screen U Benzodiazepines Scrn Urine Cocaine Screen U Marijuana (THC) Screen Coronavirus (PCR) NEGATIVE 07/14/20 07:59 WBC RBC Hgb Hct MCV MCH MCHC RDW Plt Count MPV Immature Gran % (Auto) Neut % (Auto) Lymph % (Auto) [place] % (Auto) Eos % (Auto) Baso % (Auto) Lymph # (Auto) [place] # (Auto) Eos # (Auto) Baso # (Auto) Abs Immat Gran (auto) Absolute Neuts (auto) Absolute Nucleated RBC Nucleated RBC % (auto) Sodium Potassium Chloride Carbon Dioxide Anion Gap BUN Creatinine Estim Creat Clear Calc Estimated GFR Random Glucose Estimat Average Glucose Hemoglobin A1c % Calcium Magnesium Total Bilirubin Direct Bilirubin AST ALT Alkaline Phosphatase Total Protein Albumin Triglycerides 84 Cholesterol 197 LDL Cholesterol, Calc 123 HDL Cholesterol 58 TSH 1.28 Free T4 0.98 Urine Color Urine Appearance Urine pH Ur Specific [place] Urine Protein Urine Glucose (UA) Urine Ketones Urine Blood Urine Nitrite Ur Leukocyte Esterase Urine RBC Urine WBC Ur Squamous Epith Cells Urine Bacteria Urine Opiates Screen Ur Barbiturates Screen Ur Phencyclidine Scrn Ur Amphetamines Screen U Benzodiazepines Scrn Urine Cocaine Screen U Marijuana (THC) Screen Coronavirus (PCR) Medications Medications Current Medications Generic Name Dose Route Start Last Admin Trade Name Freq PRN Reason Stop Dose Admin Acetaminophen 650 mg 07/13/20 22:49 07/14/20 01:36 Acetaminophen 325 Mg Tablet PO 650 mg Q6H PRN Administration Headache/Pain Mild Scale (1-3) Al Hydroxide/Mg Hydroxide 30 ml 07/13/20 22:49 Magnesium Hydrox/Alum Hydrox 30 Ml Oral.Susp PO Q6H PRN Heartburn/Nausea Hydroxyzine HCl 25 mg 07/13/20 22:49 Hydroxyzine Hcl 25 Mg Tablet PO BEDTIME PRN Anxiety Ibuprofen 400 mg 07/13/20 22:58 07/15/20 08:59 Ibuprofen 400 Mg Tablet PO 400 mg Q6H PRN Administration Pain, Moderate (Pain Scale 4-6 Lorazepam 0.5 mg 07/13/20 22:53 07/15/20 08:59 Lorazepam 0.5 Mg Tablet PO 0.5 mg Q4H PRN Administration Anxiety Magnesium Hydroxide 30 ml 07/13/20 22:49 Milk Of Magnesia 30 Ml Oral.Susp PO DAILY PRN Constipation Nicotine Polacrilex 4 mg 07/13/20 22:49 Nicotine Polacrilex 2 Mg Gum BUCCAL Q2H PRN Nicotine Cravings Olanzapine 2.5 mg 07/13/20 22:51 Olanzapine 2.5 Mg Tablet PO Q4H PRN Psychosis,delusions, ruminatin Olanzapine 5 mg 07/15/20 10:45 Olanzapine Odt 10 Mg Tab.Rapdis TRANSLINGU BID RAVINDER Trazodone HCl 50 mg 07/13/20 22:49 Trazodone Hcl 50 Mg Tablet PO BEDTIME PRN Insomnia Allergies Allergies Allergy/AdvReac Type Severity Reaction Status Date / Time silver Allergy Mild rash Verified 06/29/20 10:24 [From TEGADERM AG MESH] penicillin V Allergy Unknown anaphylaxis Verified 06/29/20 10:24 Penicillins [PENICILLINS] Allergy Unknown UNKNOWN Verified 06/29/20 10:24 Clindamycin HCl Allergy Unknown diarrhea Uncoded 01/10/20 00:00 Assessment & Plan Greater than 50% of the session was spent on counseling and/or coordination of care
[2020-07-15] MEDS: OLANZapine ODT 10 MG TAB.RAPDIS 5 MG TRANSLINGU (12:19)
[2020-07-15 18:00] VITALS: BP 99/56; PULSE 66; TEMP 36.8
[2020-07-15] MEDS: Flu Vacc QS2020-21(6mos up)/PF 0.5 ML SYRINGE IM (20:22)
[2020-07-16 05:40] VITALS: BP 116/57; PULSE 54; RESP 16; TEMP 36.6; O2SAT 16
--- NOTE | 2020-07-16 08:00 | HO.PSYCHPN ---
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 She reports all the blood in her arms and legs is gone. she only has blood near her neck and head. She reports severe pain throughout her body despite no known medical etiology . She reports she is unable to stand up despite standing up and walking without obvious problem; she is very depressed and anxious. She ruminates and preseverate on somatic delusions. Refuses OLZ, (later agreed but reluctant). Started ECT dw ash but refuses later agreed. Will DW Leslee Amol. Hx of excellent response to ECT in 2016 Has no insight Mental Status Exam Mental Status Exam Patient Appearance: Disheveled and Unkempt Patient Orientation: Person, Place and Situation Level of Consciousness: Restless and Alert Patient Behavior: Talkative, Suspicious, Restless and Anxious Mood Description: Suspicious, Depressed, Anxious, Sad, Nervous, Apprehensive and Expansive Affect Description: Anxious and Sad Patient Cognition Impaired: Yes Ability to Follow Directions: Poor Speech Pattern: Perseverating, Rambling and Excessive Diagnostics Vital Signs (24Hr): Vital Signs - 24 hr 07/15/20 18:00 07/16/20 05:40 Temperature 98.2 F 97.8 F Pulse Rate 66 54 Respiratory Rate 16 Blood Pressure 99/56 L 116/57 L Pulse Oximetry 16 L Body Mass Index 21.2 Labs Results: 07/16/20 09:05 07/13/20 13:23 Labs: Laboratory Results - last 48 hr 07/14/20 07/14/20 07:59 07:59 Estimat Average Glucose 103 Hemoglobin A1c % 5.2 Triglycerides 84 Cholesterol 197 LDL Cholesterol, Calc 123 HDL Cholesterol 58 TSH 1.28 Free T4 0.98 Medications Medications Current Medications Generic Name Dose Route Start Last Admin Trade Name Freq PRN Reason Stop Dose Admin Acetaminophen 650 mg 07/13/20 22:49 07/14/20 01:36 Acetaminophen 325 Mg Tablet PO 650 mg Q6H PRN Administration Headache/Pain Mild Scale (1-3) Al Hydroxide/Mg Hydroxide 30 ml 07/13/20 22:49 Magnesium Hydrox/Alum Hydrox 30 Ml Oral.Susp PO Q6H PRN Heartburn/Nausea Hydroxyzine HCl 25 mg 07/13/20 22:49 Hydroxyzine Hcl 25 Mg Tablet PO BEDTIME PRN Anxiety Ibuprofen 400 mg 07/13/20 22:58 07/15/20 20:09 Ibuprofen 400 Mg Tablet PO 400 mg Q6H PRN Administration Pain, Moderate (Pain Scale 4-6 Lorazepam 0.5 mg 07/13/20 22:53 07/15/20 20:09 Lorazepam 0.5 Mg Tablet PO 0.5 mg Q4H PRN Administration Anxiety Magnesium Hydroxide 30 ml 07/13/20 22:49 Milk Of Magnesia 30 Ml Oral.Susp PO DAILY PRN Constipation Nicotine Polacrilex 4 mg 07/13/20 22:49 Nicotine Polacrilex 2 Mg Gum BUCCAL Q2H PRN Nicotine Cravings Olanzapine 2.5 mg 07/13/20 22:51 Olanzapine 2.5 Mg Tablet PO Q4H PRN Psychosis,delusions, ruminatin Olanzapine 5 mg 07/15/20 10:45 07/15/20 20:07 Olanzapine Odt 10 Mg Tab.Rapdis TRANSLINGU Not Given BID RAVINDER Trazodone HCl 50 mg 07/13/20 22:49 Trazodone Hcl 50 Mg Tablet PO BEDTIME PRN Insomnia Allergies Allergies Allergy/AdvReac Type Severity Reaction Status Date / Time silver Allergy Mild rash Verified 06/29/20 10:24 [From TEGADERM AG MESH] penicillin V Allergy Unknown anaphylaxis Verified 06/29/20 10:24 Penicillins [PENICILLINS] Allergy Unknown UNKNOWN Verified 06/29/20 10:24 Clindamycin HCl Allergy Unknown diarrhea Uncoded 01/10/20 00:00 Assessment & Plan Assessment & Plan (1) Depression: Status: Acute Code(s): F32.9 - Major depressive disorder, single episode, unspecified (2) Somatic delusion: Status: Acute Code(s): F22 - Delusional disorders (3) Acute anxiety: Status: Acute Code(s): F41.9 - Anxiety disorder, unspecified (4) IBS (irritable bowel syndrome): Status: Acute Code(s): K58.9 - Irritable bowel syndrome without diarrhea Assessment and Plan: 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 ECT preop Collect collateral history Groups Safety evaluation Skills Patient educated on: diagnosis, medication risk/benefits and substance abuse Informed Consent: further education needed Reason for continued inpatient stay Substantial Risk for: harm to self, inability to function and rapid decompensation and med/psych decompensation Greater than 50% of the session was spent on counseling and/or coordination of care
[2020-07-16 08:58] LABS: Folate 14.4 ng/mL (> or = 4.0); Vitamin B12 1142 pg/mL (200-900)
[2020-07-16 09:19] LABS: MANUAL DIFF FLAG NO
[2020-07-16 09:28] LABS: Basophils Absolute Auto 0.1 X10*3/uL (0.0-0.2); Basophils Percent Auto 1.7 % (0-2); Eosinophils Absolute Auto 0.4 X10*3/uL (0.0-0.4); Eosinophils Percent Auto 6.6 % (0-4); Hematocrit 42.5 % (37-47); Hemoglobin 13.8 g/dl (12.0-16.0); Imm Gran Abs Auto 0.01 X10*3/uL (0.00-0.03); Imm Gran Pct Auto 0.2 % (0.0-0.4); Lymphocytes Absolute Auto 1.2 X10*3/uL (1.2-4.9); Lymphocytes Percent Auto 22.5 % (20-40); Mean Corpuscular HGB Conc 32.5 g/dl (31.0-35.0); Mean Corpuscular Hemoglobin 31.9 pg (27.0-33.0); Mean Corpuscular Volume 98.2 fL (80-98); Mean Platelet Volume 11.2 fL (9.4-12.3); Monocytes Absolute Auto 0.3 X10*3/uL (0.1-1.2); Monocytes Percent Auto 5.7 % (2-11); Neutrophils Absolute Auto 3.4 X10*3/uL (2.0-8.3); Neutrophils Percent Auto 63.3 % (45-73); Platelet Count 196 X10*3/uL (160-400); Red Blood Count 4.33 X10*6/uL (4.20-5.50); Red Cell Distribution Width 12.7 % (11.0-16.0); White Blood Count 5.4 X10*3/uL (4.8-10.8)
[2020-07-16] MEDS: LORazepam 0.5 MG TABLET PO (09:40)
[2020-07-16] MEDS: Ibuprofen 400 MG TABLET PO (09:42)
[2020-07-16] MEDS: Acetaminophen 325 MG TABLET 650 MG PO (19:17)
[2020-07-16 19:50] VITALS: BP 150/72; PULSE 69; TEMP 35.9
--- NOTE | 2020-07-17 05:01 | HO.PSYCHPN ---
Subjective Subjective Reason For Visit: psychiatric symptoms somatic delusions Interim History: Remaiuns cdelusionally depressed. Graphic descriptions of non existent or non functioning blood/body parts. Refused OLZ. Only willing to take Lorazepam. After much DW pt re Rx options she agreed to ECT. 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 She reports all the blood in her arms and legs is gone. she only has blood near her neck and head. She reports severe pain throughout her body despite no known medical etiology . She reports she is unable to stand up despite standing up and walking without obvious problem; she is very depressed and anxious. She ruminates and preseverate on somatic delusions. Refuses OLZ, (later agreed but reluctant). Hx of excellent response to ECT in 2016 Has no insight Mental Status Exam Mental Status Exam Patient Appearance: Disheveled and Unkempt Patient Orientation: Person, Place and Situation Level of Consciousness: Restless and Alert Patient Behavior: Talkative, Suspicious, Restless and Anxious Mood Description: Suspicious, Depressed, Anxious, Sad, Nervous, Apprehensive and Expansive Affect Description: Anxious and Sad Patient Cognition Impaired: Yes Ability to Follow Directions: Poor Speech Pattern: Perseverating, Rambling and Excessive Diagnostics Vital Signs (24Hr): Vital Signs - 24 hr 07/16/20 05:40 07/16/20 19:50 Temperature 97.8 F 96.7 F L Pulse Rate 54 69 Respiratory Rate 16 Blood Pressure 116/57 L 150/72 H Pulse Oximetry 16 L Body Mass Index 21.2 Labs Results: 07/17/20 07:59 07/13/20 13:23 Labs: Laboratory Results - last 48 hr 07/14/20 07/16/20 07:59 09:05 WBC 5.4 RBC 4.33 Hgb 13.8 Hct 42.5 MCV 98.2 H MCH 31.9 MCHC 32.5 RDW 12.7 Plt Count 196 MPV 11.2 Immature Gran % (Auto) 0.2 Neut % (Auto) 63.3 Lymph % (Auto) 22.5 [place] % (Auto) 5.7 Eos % (Auto) 6.6 H Baso % (Auto) 1.7 Lymph # (Auto) 1.2 [place] # (Auto) 0.3 Eos # (Auto) 0.4 Baso # (Auto) 0.1 Abs Immat Gran (auto) 0.01 Absolute Neuts (auto) 3.4 Absolute Nucleated RBC 0.000 Nucleated RBC % (auto) 0.0 Vitamin B12 1142 H Folate 14.4 Medications Medications Current Medications Generic Name Dose Route Start Last Admin Trade Name Freq PRN Reason Stop Dose Admin Acetaminophen 650 mg 07/13/20 22:49 07/16/20 19:17 Acetaminophen 325 Mg Tablet PO 650 mg Q6H PRN Administration Headache/Pain Mild Scale (1-3) Al Hydroxide/Mg Hydroxide 30 ml 07/13/20 22:49 Magnesium Hydrox/Alum Hydrox 30 Ml Oral.Susp PO Q6H PRN Heartburn/Nausea Hydroxyzine HCl 25 mg 07/13/20 22:49 Hydroxyzine Hcl 25 Mg Tablet PO BEDTIME PRN Anxiety Ibuprofen 400 mg 07/13/20 22:58 07/16/20 09:42 Ibuprofen 400 Mg Tablet PO 400 mg Q6H PRN Administration Pain, Moderate (Pain Scale 4-6 Lorazepam 0.5 mg 07/13/20 22:53 07/16/20 09:40 Lorazepam 0.5 Mg Tablet PO 0.5 mg Q4H PRN Administration Anxiety Magnesium Hydroxide 30 ml 07/13/20 22:49 Milk Of Magnesia 30 Ml Oral.Susp PO DAILY PRN Constipation Nicotine Polacrilex 4 mg 07/13/20 22:49 Nicotine Polacrilex 2 Mg Gum BUCCAL Q2H PRN Nicotine Cravings Olanzapine 2.5 mg 07/13/20 22:51 Olanzapine 2.5 Mg Tablet PO Q4H PRN Psychosis,delusions, ruminatin Olanzapine 5 mg 07/15/20 10:45 07/16/20 22:43 Olanzapine Odt 10 Mg Tab.Rapdis TRANSLINGU Not Given BID RAVINDER Trazodone HCl 50 mg 07/13/20 22:49 Trazodone Hcl 50 Mg Tablet PO BEDTIME PRN Insomnia Allergies Allergies Allergy/AdvReac Type Severity Reaction Status Date / Time silver Allergy Mild rash Verified 06/29/20 10:24 [From TEGADERM AG MESH] penicillin V Allergy Unknown anaphylaxis Verified 06/29/20 10:24 Penicillins [PENICILLINS] Allergy Unknown UNKNOWN Verified 06/29/20 10:24 Clindamycin HCl Allergy Unknown diarrhea Uncoded 01/10/20 00:00 Assessment & Plan Assessment & Plan (1) Depression: Status: Acute Code(s): F32.9 - Major depressive disorder, single episode, unspecified (2) Acute anxiety: Status: Acute Code(s): F41.9 - Anxiety disorder, unspecified (3) IBS (irritable bowel syndrome): Status: Acute Code(s): K58.9 - Irritable bowel syndrome without diarrhea (4) Somatic delusion: Status: Acute Code(s): F22 - Delusional disorders Assessment and Plan: Patient has a history of ECT. She has no history of aortic stenosis, asthma, COPD, atrial fibrillation, coronary artery disease, diabetes, hypertension, ICD, anticoagulation, . EKG shows Normal sinus rhythm with QTC of 422. No medical contraindications noted at this time for ECT. Depression. Management as per psychiatric team. Discussed with Dr. Peña Greater than 50% of the session was spent on counseling and/or coordination of care
[2020-07-17 08:31] LABS: MANUAL DIFF FLAG NO
[2020-07-17 08:37] LABS: Basophils Absolute Auto 0.1 X10*3/uL (0.0-0.2); Basophils Percent Auto 1.8 % (0-2); Eosinophils Absolute Auto 0.4 X10*3/uL (0.0-0.4); Hematocrit 38.7 % (37-47); Hemoglobin 12.6 g/dl (12.0-16.0); Imm Gran Abs Auto 0.01 X10*3/uL (0.00-0.03); Imm Gran Pct Auto 0.2 % (0.0-0.4); Lymphocytes Absolute Auto 1.2 X10*3/uL (1.2-4.9); Lymphocytes Percent Auto 24.9 % (20-40); Mean Corpuscular HGB Conc 32.6 g/dl (31.0-35.0); Mean Corpuscular Hemoglobin 32.1 pg (27.0-33.0); Mean Corpuscular Volume 98.5 fL (80-98); Mean Platelet Volume 11.2 fL (9.4-12.3); Monocytes Absolute Auto 0.4 X10*3/uL (0.1-1.2); Neutrophils Absolute Auto 2.9 X10*3/uL (2.0-8.3); Neutrophils Percent Auto 58.1 % (45-73); Platelet Count 174 X10*3/uL (160-400); Red Blood Count 3.93 X10*6/uL (4.20-5.50); Red Cell Distribution Width 12.6 % (11.0-16.0)
[2020-07-17] MEDS: Acetaminophen 325 MG TABLET 650 MG PO (08:53)
[2020-07-17] MEDS: LORazepam 0.5 MG TABLET PO (08:53)
[2020-07-17 09:31] LABS: Glucose Urine UA NEG (NEG); Leukocyte Esterase Urine TRACE (NEG); Nitrite Urine NEG (NEG); PH 7.5 (5.0-8.0); Urine Blood NEG (NEG); Urine Ketones NEG (NEG); Urine Protein NEG (NEG-TRACE)
[2020-07-17 09:32] LABS: Appearance Urine HAZY; Color Urine YELLOW
[2020-07-17 09:43] LABS: Bacteria Urine TRACE /LPF; RBC Urine 0-2 /HPF (0); Squamous Epithelial Cell Urine TRACE /LPF
[2020-07-17 11:36] VITALS: BP 120/68; PULSE 80; RESP 16; TEMP 36.6; O2SAT 100
--- NOTE | 2020-07-17 14:12 | PC.NURSE ---
Pt retracted 3 day notice. Kitty GARCIA SW aware.
--- NOTE | 2020-07-17 16:23 | PM.IMCN ---
History of Present Illness Data of Consult Service Date: 07/17/20 Requesting physician: Jerardo Lucas Primary Care Provider: Unknown Physician HPI Reason for consult: Medical consultation 64-year-old woman with a history of anxiety / depression and IBS admitted by for psychiatric care. The she seems quite anxious and reported that she wanted me to check her legs because they were off of her body. She also reported that her arms were gone. She was reassured that her body parts were intact. Her vital signs were stable. Review of Systems Review of Systems: Denies any recent fever chills or decrease in appetite respiratory Reported trouble breathing cardiovascular denied chest pain gastrointestinal reported chronic abdominal pain genitourinary denies any dysuria frequency or hematuria musculoskeletal stated that her arms and legs were missing neuropsych denies any weakness or seizures all other systems reviewed are negative [facility] Medical History (Updated 07/17/20 @ 18:13 by Milly Fuentes NP) IBS (irritable bowel syndrome) Severe recurrent major depression with psychotic features Functional capacity: independent ambulation Family History (Updated 06/29/20 @ 08:37 by JZALYN Fox) Father No problems noted. Mother Leukemia Cancer Family/Other Lung cancer Pertinent family history: denies cardiac disease Surgical History H/O colonoscopy Social History (Updated 06/29/20 @ 10:27 by JAZLYN Fox) Household Members: Spouse and Children Household Members Other:: and adult son (40) Housing: House Do you presently have visiting nurse or other home services: No Alcohol intake: never Smoking Status: Current every day smoker Tobacco Type: Cigarette Packs Per Day: 0.5 Cigarettes Per Day: 10.0 Years Smoked: off and on for approx. 48 years Smoked in Last 30 Days: Yes Patient Interested in Nicotine Replacement: Yes (pt unsure, may try losenger) Patient Given Instructions on How to Stop Smoking: No Second Hand Smoke Exposure: No Use of substances other than those prescribed or required for medical reasons: No Currently Displaying Signs/Symptoms of Drug Intoxication Withdrawal: No Spiritual Healthcare Practices: unknown Jainism Healthcare Practices: unknown Cultural Healthcare Practices: unknown Advance Directives: No Advance Directives Information Provided: Yes Do you have thoughts of harming others: None Do you have a plan to hurt others: No Plan Recently lost weight without trying: Yes service: No Sexual orientation: Straight/Heterosexual Meds Allergies Allergy/AdvReac Type Severity Reaction Status Date / Time silver Allergy Mild rash Verified 06/29/20 10:24 [From TEGADERM AG MESH] penicillin V Allergy Unknown anaphylaxis Verified 06/29/20 10:24 Penicillins [PENICILLINS] Allergy Unknown UNKNOWN Verified 06/29/20 10:24 Clindamycin HCl Allergy Unknown diarrhea Uncoded 01/10/20 00:00 Home Medications Medication Instructions Recorded Confirmed Type multivitamin 1 tab PO DAILY 06/29/20 06/29/20 History Physical Exam Vital Signs and Narrative: Vital Signs: Last Vital Signs Temp 97.8 F 07/17/20 11:36 Pulse 80 07/17/20 11:36 Resp 16 07/17/20 11:36 BP 120/68 07/17/20 11:36 Pulse Ox 100 07/17/20 11:36 Body Mass Index 21.2 Appearing anxious head is normocephalic atraumatic eyes pupils are PERRLA sclera is anicteric neck is supple no lymphadenopathy, no JVD noted lung sounds are clear heart regular rate rhythm positive bowel sounds, abdomen is soft, nontender neuro patient is alert x3, no focal deficits Results Labs Labs: Laboratory Tests 07/13/20 07/13/20 07/13/20 13:23 13:23 13:23 WBC 6.8 RBC 4.76 Hgb 15.2 Hct 45.8 MCV 96.2 MCH 31.9 MCHC 33.2 RDW 12.5 Plt Count 241 MPV 11.2 Immature Gran % (Auto) 0.3 Neut % (Auto) 63.9 Lymph % (Auto) 25.6 [place] % (Auto) 5.6 Eos % (Auto) 3.1 Baso % (Auto) 1.5 Lymph # (Auto) 1.7 [place] # (Auto) 0.4 Eos # (Auto) 0.2 Baso # (Auto) 0.1 Abs Immat Gran (auto) 0.02 Absolute Neuts (auto) 4.3 Absolute Nucleated RBC 0.000 Nucleated RBC % (auto) 0.0 Sodium Potassium Chloride Carbon Dioxide Anion Gap BUN Creatinine Estim Creat Clear Calc Estimated GFR Random Glucose Estimat Average Glucose Hemoglobin A1c % Calcium Magnesium Total Bilirubin Direct Bilirubin AST ALT Alkaline Phosphatase Total Protein Albumin Triglycerides Cholesterol LDL Cholesterol, Calc HDL Cholesterol Vitamin B12 Folate TSH Free T4 Urine Color STRAW Urine Appearance CLEAR Urine pH 6.5 Ur Specific [place] <= 1.005 Urine Protein NEG Urine Glucose (UA) NEG Urine Ketones NEG Urine Blood TRACE Urine Nitrite NEG Ur Leukocyte Esterase NEG Urine RBC 0-2 Urine WBC 0 Ur Squamous Epith Cells TRACE Urine Bacteria NONE Urine Opiates Screen Not Detected Ur Barbiturates Screen Not Detected Ur Phencyclidine Scrn Not Detected Ur Amphetamines Screen Not Detected U Benzodiazepines Scrn Not Detected Urine Cocaine Screen Not Detected U Marijuana (THC) Screen Not Detected Coronavirus (PCR) 07/13/20 07/13/20 07/14/20 13:23 19:15 07:59 WBC RBC Hgb Hct MCV MCH MCHC RDW Plt Count MPV Immature Gran % (Auto) Neut % (Auto) Lymph % (Auto) [place] % (Auto) Eos % (Auto) Baso % (Auto) Lymph # (Auto) [place] # (Auto) Eos # (Auto) Baso # (Auto) Abs Immat Gran (auto) Absolute Neuts (auto) Absolute Nucleated RBC Nucleated RBC % (auto) Sodium 141 Potassium 4.4 Chloride 104 Carbon Dioxide 28 Anion Gap 13 BUN 13 Creatinine 0.80 Estim Creat Clear Calc 61.3 Estimated GFR > 60 Random Glucose 108 Estimat Average Glucose 103 Hemoglobin A1c % 5.2 Calcium 10.0 Magnesium 2.3 Total Bilirubin 0.6 Direct Bilirubin 0.3 AST 12 ALT 6 Alkaline Phosphatase 48 Total Protein 7.7 Albumin 4.8 Triglycerides Cholesterol LDL Cholesterol, Calc HDL Cholesterol Vitamin B12 Folate TSH Free T4 Urine Color Urine Appearance Urine pH Ur Specific [place] Urine Protein Urine Glucose (UA) Urine Ketones Urine Blood Urine Nitrite Ur Leukocyte Esterase Urine RBC Urine WBC Ur Squamous Epith Cells Urine Bacteria Urine Opiates Screen Ur Barbiturates Screen Ur Phencyclidine Scrn Ur Amphetamines Screen U Benzodiazepines Scrn Urine Cocaine Screen U Marijuana (THC) Screen Coronavirus (PCR) NEGATIVE 07/14/20 07/14/20 07/16/20 07:59 07:59 09:05 WBC 5.4 RBC 4.33 Hgb 13.8 Hct 42.5 MCV 98.2 H MCH 31.9 MCHC 32.5 RDW 12.7 Plt Count 196 MPV 11.2 Immature Gran % (Auto) 0.2 Neut % (Auto) 63.3 Lymph % (Auto) 22.5 [place] % (Auto) 5.7 Eos % (Auto) 6.6 H Baso % (Auto) 1.7 Lymph # (Auto) 1.2 [place] # (Auto) 0.3 Eos # (Auto) 0.4 Baso # (Auto) 0.1 Abs Immat Gran (auto) 0.01 Absolute Neuts (auto) 3.4 Absolute Nucleated RBC 0.000 Nucleated RBC % (auto) 0.0 Sodium Potassium Chloride Carbon Dioxide Anion Gap BUN Creatinine Estim Creat Clear Calc Estimated GFR Random Glucose Estimat Average Glucose Hemoglobin A1c % Calcium Magnesium Total Bilirubin Direct Bilirubin AST ALT Alkaline Phosphatase Total Protein Albumin Triglycerides 84 Cholesterol 197 LDL Cholesterol, Calc 123 HDL Cholesterol 58 Vitamin B12 1142 H Folate 14.4 TSH 1.28 Free T4 0.98 Urine Color Urine Appearance Urine pH Ur Specific [place] Urine Protein Urine Glucose (UA) Urine Ketones Urine Blood Urine Nitrite Ur Leukocyte Esterase Urine RBC Urine WBC Ur Squamous Epith Cells Urine Bacteria Urine Opiates Screen Ur Barbiturates Screen Ur Phencyclidine Scrn Ur Amphetamines Screen U Benzodiazepines Scrn Urine Cocaine Screen U Marijuana (THC) Screen Coronavirus (PCR) 07/17/20 07/17/20 07:59 09:07 WBC 5.0 RBC 3.93 L Hgb 12.6 Hct 38.7 MCV 98.5 H MCH 32.1 MCHC 32.6 RDW 12.6 Plt Count 174 MPV 11.2 Immature Gran % (Auto) 0.2 Neut % (Auto) 58.1 Lymph % (Auto) 24.9 [place] % (Auto) 8.0 Eos % (Auto) 7.0 H Baso % (Auto) 1.8 Lymph # (Auto) 1.2 [place] # (Auto) 0.4 Eos # (Auto) 0.4 Baso # (Auto) 0.1 Abs Immat Gran (auto) 0.01 Absolute Neuts (auto) 2.9 Absolute Nucleated RBC 0.000 Nucleated RBC % (auto) 0.0 Sodium Potassium Chloride Carbon Dioxide Anion Gap BUN Creatinine Estim Creat Clear Calc Estimated GFR Random Glucose Estimat Average Glucose Hemoglobin A1c % Calcium Magnesium Total Bilirubin Direct Bilirubin AST ALT Alkaline Phosphatase Total Protein Albumin Triglycerides Cholesterol LDL Cholesterol, Calc HDL Cholesterol Vitamin B12 Folate TSH Free T4 Urine Color YELLOW Urine Appearance HAZY Urine pH 7.5 Ur Specific [place] 1.010 Urine Protein NEG Urine Glucose (UA) NEG Urine Ketones NEG Urine Blood NEG Urine Nitrite NEG Ur Leukocyte Esterase TRACE H Urine RBC 0-2 Urine WBC 1-4 Ur Squamous Epith Cells TRACE Urine Bacteria TRACE Urine Opiates Screen Ur Barbiturates Screen Ur Phencyclidine Scrn Ur Amphetamines Screen U Benzodiazepines Scrn Urine Cocaine Screen U Marijuana (THC) Screen Coronavirus (PCR) Assessment and Plan (1) Depression: Status: Acute (2) Acute anxiety: Status: Acute (3) IBS (irritable bowel syndrome): Status: Acute (4) Somatic delusion: Status: Acute Patient has a history of ECT. She has no history of aortic stenosis, asthma, COPD, atrial fibrillation, coronary artery disease, diabetes, hypertension, ICD, anticoagulation, . EKG shows Normal sinus rhythm with QTC of 422. No medical contraindications noted at this time for ECT. Depression. Management as per psychiatric team. Discussed with Dr. Peña
[2020-07-17 17:08] VITALS: BP 134/70; PULSE 75; TEMP 36.4
[2020-07-18] VITALS (10 sets, daily range): BP systolic 105–146; BP diastolic 51–82; PULSE 59–97; RESP 14–22; TEMP 36.2–36.6; O2SAT 96–100
--- NOTE | 2020-07-18 00:33 | PC.NURSE ---
Patient signed a 3 day notice at 0030 on 07/18/20 with an end date of 07/23/20.
[2020-07-18] MEDS: hydrOXYzine HCL 25 MG TABLET PO (00:34)
--- NOTE | 2020-07-18 03:08 | PC.NURSE ---
At approximately 0030, pt approached the nursing station c/o sleeplessness and pain. Everything is hurting me. I have no muscle; it's not attached. Pt reported feeling threatened by her , 's sister, and nurses with regard to being mandated to treatment. Pt signed a 3 day notice and received vistaril 25 mg for sleep and anxiety. Pt's reported symptoms consistent with psychotic features. 0230: Pt reported pain (did not reply to request for a numerical value) that felt as if her muscles were being pulled along her neck and arms. I can't move my arms. I have no core. Pt observed to move arms and press tender objects. Pt denied sleep and expressed anxiety r/t ECT therapy. Pt c/o air vent blowing cold air on her. 0330: Pt approached nursing station c/o 06/30 generalized pain. She received PRN tylenol with 25 cc of apple sauce due to pt reporting difficulty swallowing. Pt stated hydroxyzine was ineffective but did rest in bed. Before returning to bed, pt stated that she hated her and to tell her sons that she loves them. She wanted staff to inform her sons that her dress and make-bag are ready for her .
[2020-07-18] MEDS: Acetaminophen 325 MG TABLET 650 MG PO ×2 (03:40→21:56)
--- NOTE | 2020-07-18 08:37 | MHC.SHP ---
Pre-Procedural Eval Section A The patient is an INPATIENT: Yes Changes since office visit: Yes New Medical Problems, Yes Changes in Medication and Yes Patient answered all questions; No Cold of Flu in the past 2 weeks The History & Physical has been completed within 30 days and I have reviewed it.: Yes Section B Chief Complaint: psychiatric symptoms somatic delusions Allergies: Allergies Allergy/AdvReac Type Severity Reaction Status Date / Time silver Allergy Mild rash Verified 06/29/20 10:24 [From TEGADERM AG MESH] penicillin V Allergy Unknown anaphylaxis Verified 06/29/20 10:24 Penicillins [PENICILLINS] Allergy Unknown UNKNOWN Verified 06/29/20 10:24 Clindamycin HCl Allergy Unknown diarrhea Uncoded 01/10/20 00:00 Plan Patient has been examined and remains a candidate for the planned procedure
--- NOTE | 2020-07-18 08:56 | HO.ANESPROP2 ---
[facility] Past Medical History Medical History IBS (irritable bowel syndrome) Severe recurrent major depression with psychotic features Functional capacity: independent ambulation Family History Family History Father No problems noted. Mother Leukemia Cancer Family/Other Lung cancer Surgical History Surgical History H/O colonoscopy Social History Social History Household Members: Spouse and Children Household Members Other:: and adult son (40) Housing: House Do you presently have visiting nurse or other home services: No Alcohol intake: never Smoking Status: Current every day smoker Tobacco Type: Cigarette Packs Per Day: 0.5 Cigarettes Per Day: 10.0 Years Smoked: off and on for approx. 48 years Smoked in Last 30 Days: Yes Patient Interested in Nicotine Replacement: Yes (pt unsure, may try losenger) Patient Given Instructions on How to Stop Smoking: No Second Hand Smoke Exposure: No Use of substances other than those prescribed or required for medical reasons: No Currently Displaying Signs/Symptoms of Drug Intoxication Withdrawal: No Spiritual Healthcare Practices: unknown Religion Healthcare Practices: unknown Cultural Healthcare Practices: unknown Advance Directives: No Advance Directives Information Provided: Yes Do you have thoughts of harming others: None Do you have a plan to hurt others: No Plan Recently lost weight without trying: Yes service: No Sexual orientation: Straight/Heterosexual Meds Allergies Allergy/AdvReac Type Severity Reaction Status Date / Time silver Allergy Mild rash Verified 06/29/20 10:24 [From TEGADERM AG MESH] penicillin V Allergy Unknown anaphylaxis Verified 06/29/20 10:24 Penicillins [PENICILLINS] Allergy Unknown UNKNOWN Verified 06/29/20 10:24 Clindamycin HCl Allergy Unknown diarrhea Uncoded 01/10/20 00:00 Home Medications Medication Instructions Recorded Confirmed Type multivitamin 1 tab PO DAILY 06/29/20 06/29/20 History Exam Exam Date and Time: July 18, 2020 0856 Height,Weight and Vital Signs: Height 5 ft 4 in Weight 56.245 kg Last Vital Signs Temp 97.2 F 07/18/20 07:28 Pulse 61 07/18/20 07:28 Resp 18 07/18/20 07:28 BP 130/74 07/18/20 07:28 Pulse Ox 100 07/18/20 07:28 Pertinent Lab Results Pertinent Lab Results: Laboratory Tests 07/13/20 07/13/20 07/13/20 13:23 13:23 13:23 WBC 6.8 RBC 4.76 Hgb 15.2 Hct 45.8 MCV 96.2 MCH 31.9 MCHC 33.2 RDW 12.5 Plt Count 241 MPV 11.2 Immature Gran % (Auto) 0.3 Neut % (Auto) 63.9 Lymph % (Auto) 25.6 [place] % (Auto) 5.6 Eos % (Auto) 3.1 Baso % (Auto) 1.5 Lymph # (Auto) 1.7 [place] # (Auto) 0.4 Eos # (Auto) 0.2 Baso # (Auto) 0.1 Abs Immat Gran (auto) 0.02 Absolute Neuts (auto) 4.3 Absolute Nucleated RBC 0.000 Nucleated RBC % (auto) 0.0 Sodium Potassium Chloride Carbon Dioxide Anion Gap BUN Creatinine Estim Creat Clear Calc Estimated GFR Random Glucose Estimat Average Glucose Hemoglobin A1c % Calcium Magnesium Total Bilirubin Direct Bilirubin AST ALT Alkaline Phosphatase Total Protein Albumin Triglycerides Cholesterol LDL Cholesterol, Calc HDL Cholesterol Vitamin B12 Folate TSH Free T4 Urine Color STRAW Urine Appearance CLEAR Urine pH 6.5 Ur Specific [place] <= 1.005 Urine Protein NEG Urine Glucose (UA) NEG Urine Ketones NEG Urine Blood TRACE Urine Nitrite NEG Ur Leukocyte Esterase NEG Urine RBC 0-2 Urine WBC 0 Ur Squamous Epith Cells TRACE Urine Bacteria NONE Urine Opiates Screen Not Detected Ur Barbiturates Screen Not Detected Ur Phencyclidine Scrn Not Detected Ur Amphetamines Screen Not Detected U Benzodiazepines Scrn Not Detected Urine Cocaine Screen Not Detected U Marijuana (THC) Screen Not Detected Coronavirus (PCR) 07/13/20 07/13/20 07/14/20 13:23 19:15 07:59 WBC RBC Hgb Hct MCV MCH MCHC RDW Plt Count MPV Immature Gran % (Auto) Neut % (Auto) Lymph % (Auto) [place] % (Auto) Eos % (Auto) Baso % (Auto) Lymph # (Auto) [place] # (Auto) Eos # (Auto) Baso # (Auto) Abs Immat Gran (auto) Absolute Neuts (auto) Absolute Nucleated RBC Nucleated RBC % (auto) Sodium 141 Potassium 4.4 Chloride 104 Carbon Dioxide 28 Anion Gap 13 BUN 13 Creatinine 0.80 Estim Creat Clear Calc 61.3 Estimated GFR > 60 Random Glucose 108 Estimat Average Glucose 103 Hemoglobin A1c % 5.2 Calcium 10.0 Magnesium 2.3 Total Bilirubin 0.6 Direct Bilirubin 0.3 AST 12 ALT 6 Alkaline Phosphatase 48 Total Protein 7.7 Albumin 4.8 Triglycerides Cholesterol LDL Cholesterol, Calc HDL Cholesterol Vitamin B12 Folate TSH Free T4 Urine Color Urine Appearance Urine pH Ur Specific [place] Urine Protein Urine Glucose (UA) Urine Ketones Urine Blood Urine Nitrite Ur Leukocyte Esterase Urine RBC Urine WBC Ur Squamous Epith Cells Urine Bacteria Urine Opiates Screen Ur Barbiturates Screen Ur Phencyclidine Scrn Ur Amphetamines Screen U Benzodiazepines Scrn Urine Cocaine Screen U Marijuana (THC) Screen Coronavirus (PCR) NEGATIVE 07/14/20 07/14/20 07/16/20 07:59 07:59 09:05 WBC 5.4 RBC 4.33 Hgb 13.8 Hct 42.5 MCV 98.2 H MCH 31.9 MCHC 32.5 RDW 12.7 Plt Count 196 MPV 11.2 Immature Gran % (Auto) 0.2 Neut % (Auto) 63.3 Lymph % (Auto) 22.5 [place] % (Auto) 5.7 Eos % (Auto) 6.6 H Baso % (Auto) 1.7 Lymph # (Auto) 1.2 [place] # (Auto) 0.3 Eos # (Auto) 0.4 Baso # (Auto) 0.1 Abs Immat Gran (auto) 0.01 Absolute Neuts (auto) 3.4 Absolute Nucleated RBC 0.000 Nucleated RBC % (auto) 0.0 Sodium Potassium Chloride Carbon Dioxide Anion Gap BUN Creatinine Estim Creat Clear Calc Estimated GFR Random Glucose Estimat Average Glucose Hemoglobin A1c % Calcium Magnesium Total Bilirubin Direct Bilirubin AST ALT Alkaline Phosphatase Total Protein Albumin Triglycerides 84 Cholesterol 197 LDL Cholesterol, Calc 123 HDL Cholesterol 58 Vitamin B12 1142 H Folate 14.4 TSH 1.28 Free T4 0.98 Urine Color Urine Appearance Urine pH Ur Specific [place] Urine Protein Urine Glucose (UA) Urine Ketones Urine Blood Urine Nitrite Ur Leukocyte Esterase Urine RBC Urine WBC Ur Squamous Epith Cells Urine Bacteria Urine Opiates Screen Ur Barbiturates Screen Ur Phencyclidine Scrn Ur Amphetamines Screen U Benzodiazepines Scrn Urine Cocaine Screen U Marijuana (THC) Screen Coronavirus (PCR) 07/17/20 07/17/20 07:59 09:07 WBC 5.0 RBC 3.93 L Hgb 12.6 Hct 38.7 MCV 98.5 H MCH 32.1 MCHC 32.6 RDW 12.6 Plt Count 174 MPV 11.2 Immature Gran % (Auto) 0.2 Neut % (Auto) 58.1 Lymph % (Auto) 24.9 [place] % (Auto) 8.0 Eos % (Auto) 7.0 H Baso % (Auto) 1.8 Lymph # (Auto) 1.2 [place] # (Auto) 0.4 Eos # (Auto) 0.4 Baso # (Auto) 0.1 Abs Immat Gran (auto) 0.01 Absolute Neuts (auto) 2.9 Absolute Nucleated RBC 0.000 Nucleated RBC % (auto) 0.0 Sodium Potassium Chloride Carbon Dioxide Anion Gap BUN Creatinine Estim Creat Clear Calc Estimated GFR Random Glucose Estimat Average Glucose Hemoglobin A1c % Calcium Magnesium Total Bilirubin Direct Bilirubin AST ALT Alkaline Phosphatase Total Protein Albumin Triglycerides Cholesterol LDL Cholesterol, Calc HDL Cholesterol Vitamin B12 Folate TSH Free T4 Urine Color YELLOW Urine Appearance HAZY Urine pH 7.5 Ur Specific [place] 1.010 Urine Protein NEG Urine Glucose (UA) NEG Urine Ketones NEG Urine Blood NEG Urine Nitrite NEG Ur Leukocyte Esterase TRACE H Urine RBC 0-2 Urine WBC 1-4 Ur Squamous Epith Cells TRACE Urine Bacteria TRACE Urine Opiates Screen Ur Barbiturates Screen Ur Phencyclidine Scrn Ur Amphetamines Screen U Benzodiazepines Scrn Urine Cocaine Screen U Marijuana (THC) Screen Coronavirus (PCR) Airway Mallampati Class: II TM Dist: >3cm Neck ROM: Full Assessment and Plan Assessment Anesthesia Assessment: Anesthesia Plan Discussed and Chart Reviewed Final Anesthetic Review NPO: Yes ASA Class: II Final Preanesthetic Review: No Changes in Pt Med Stat, Meds/Allgs Chart Reviewed, Consent Obtained/Reviewed and Anes Risks/Benef Reviewed Patient Risk: Low Procedure Risk: Low Assessment/Block/Sedation in SS: Assess/Block/Sedation-SS Anesthetic Plan Anesthetic Plan: GA Disposition: Standard PACU
--- NOTE | 2020-07-18 09:00 | HO.PSYCHPN ---
Subjective Subjective Reason For Visit: psychiatric symptoms somatic delusions Interim History: S/P ECT #1. Almost refused but agreed. Tolerated ECT well. Below are previous notes from past 48 hours. Remaiuns cdelusionally depressed. Graphic descriptions of non existent or non functioning blood/body parts. Refused OLZ. Only willing to take Lorazepam. After much DW pt re Rx options she agreed to ECT. 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 She reports all the blood in her arms and legs is gone. she only has blood near her neck and head. She reports severe pain throughout her body despite no known medical etiology . She reports she is unable to stand up despite standing up and walking without obvious problem; she is very depressed and anxious. She ruminates and preseverate on somatic delusions. Refuses OLZ, (later agreed but reluctant). Hx of excellent response to ECT in 2016 Has no insight Review of Systems Review of Systems Yes all other systems are reviewed and are negative Mental Status Exam Mental Status Exam Patient Appearance: Disheveled and Unkempt Patient Orientation: Person, Place and Situation Level of Consciousness: Restless and Alert Patient Behavior: Talkative, Suspicious, Restless and Anxious Mood Description: Suspicious, Depressed, Anxious, Sad, Nervous, Apprehensive and Expansive Affect Description: Anxious and Sad Patient Cognition Impaired: Yes Ability to Follow Directions: Poor Speech Pattern: Perseverating, Rambling and Excessive Diagnostics Vital Signs (24Hr): Vital Signs - 24 hr 07/17/20 11:36 07/17/20 17:08 07/18/20 06:11 Temperature 97.8 F 97.5 F 97.2 F Pulse Rate 80 75 61 Respiratory Rate 16 18 Blood Pressure 120/68 134/70 130/74 Pulse Oximetry 100 100 07/18/20 07:26 07/18/20 07:28 07/18/20 08:57 Temperature 97.8 F 97.2 F 97.7 F Pulse Rate 63 61 59 Respiratory Rate 17 18 16 Blood Pressure 145/65 H 130/74 120/51 L Pulse Oximetry 100 100 98 Body Mass Index 21.2 Labs Results: 07/17/20 07:59 10/23/20 13:23 Labs: Laboratory Results - last 48 hr 07/16/20 07/17/20 07/17/20 09:05 07:59 09:07 WBC 5.4 5.0 RBC 4.33 3.93 L Hgb 13.8 12.6 Hct 42.5 38.7 MCV 98.2 H 98.5 H MCH 31.9 32.1 MCHC 32.5 32.6 RDW 12.7 12.6 Plt Count 196 174 MPV 11.2 11.2 Immature Gran % (Auto) 0.2 0.2 Neut % (Auto) 63.3 58.1 Lymph % (Auto) 22.5 24.9 [place] % (Auto) 5.7 8.0 Eos % (Auto) 6.6 H 7.0 H Baso % (Auto) 1.7 1.8 Lymph # (Auto) 1.2 1.2 [place] # (Auto) 0.3 0.4 Eos # (Auto) 0.4 0.4 Baso # (Auto) 0.1 0.1 Abs Immat Gran (auto) 0.01 0.01 Absolute Neuts (auto) 3.4 2.9 Absolute Nucleated RBC 0.000 0.000 Nucleated RBC % (auto) 0.0 0.0 Urine Color YELLOW Urine Appearance HAZY Urine pH 7.5 Ur Specific [place] 1.010 Urine Protein NEG Urine Glucose (UA) NEG Urine Ketones NEG Urine Blood NEG Urine Nitrite NEG Ur Leukocyte Esterase TRACE H Urine RBC 0-2 Urine WBC 1-4 Ur Squamous Epith Cells TRACE Urine Bacteria TRACE Medications Medications Current Medications Generic Name Dose Route Start Last Admin Trade Name Freq PRN Reason Stop Dose Admin Acetaminophen 650 mg 07/13/20 22:49 07/18/20 03:40 Acetaminophen 325 Mg Tablet PO 650 mg Q6H PRN Administration Headache/Pain Mild Scale (1-3) Al Hydroxide/Mg Hydroxide 30 ml 07/13/20 22:49 Magnesium Hydrox/Alum Hydrox 30 Ml Oral.Susp PO Q6H PRN Heartburn/Nausea Hydroxyzine HCl 25 mg 07/13/20 22:49 07/18/20 00:34 Hydroxyzine Hcl 25 Mg Tablet PO 25 mg BEDTIME PRN Administration Anxiety Ibuprofen 400 mg 07/13/20 22:58 07/16/20 09:42 Ibuprofen 400 Mg Tablet PO 400 mg Q6H PRN Administration Pain, Moderate (Pain Scale 4-6 Lorazepam 0.5 mg 07/13/20 22:53 07/17/20 08:53 Lorazepam 0.5 Mg Tablet PO 0.5 mg Q4H PRN Administration Anxiety Magnesium Hydroxide 30 ml 07/13/20 22:49 Milk Of Magnesia 30 Ml Oral.Susp PO DAILY PRN Constipation Nicotine Polacrilex 4 mg 07/13/20 22:49 Nicotine Polacrilex 2 Mg Gum BUCCAL Q2H PRN Nicotine Cravings Olanzapine 2.5 mg 07/13/20 22:51 Olanzapine 2.5 Mg Tablet PO Q4H PRN Psychosis,delusions, ruminatin Olanzapine 5 mg 07/15/20 10:45 07/17/20 22:18 Olanzapine Odt 10 Mg Tab.Rapdis TRANSLINGU Not Given BID RAVINDER Trazodone HCl 50 mg 07/13/20 22:49 Trazodone Hcl 50 Mg Tablet PO BEDTIME PRN Insomnia Allergies Allergies Allergy/AdvReac Type Severity Reaction Status Date / Time silver Allergy Mild rash Verified 06/29/20 10:24 [From TEGADERM AG MESH] penicillin V Allergy Unknown anaphylaxis Verified 06/29/20 10:24 Penicillins [PENICILLINS] Allergy Unknown UNKNOWN Verified 06/29/20 10:24 Clindamycin HCl Allergy Unknown diarrhea Uncoded 01/10/20 00:00 Assessment & Plan Assessment & Plan (1) Depression: Qualifiers: Depression Type: major depressive disorder Major depression recurrence: recurrent Major depression episode severity: severe Status: Acute Code(s): F32.9 - Major depressive disorder, single episode, unspecified (2) Acute anxiety: Status: Acute Code(s): F41.9 - Anxiety disorder, unspecified (3) IBS (irritable bowel syndrome): Status: Acute Code(s): K58.9 - Irritable bowel syndrome without diarrhea (4) Somatic delusion: Status: Acute Code(s): F22 - Delusional disorders Assessment and Plan: Patient has a history of ECT. She has no history of aortic stenosis, asthma, COPD, atrial fibrillation, coronary artery disease, diabetes, hypertension, ICD, anticoagulation, . EKG shows Normal sinus rhythm with QTC of 422. No medical contraindications noted at this time for ECT. Depression. Management as per psychiatric team. Discussed with Dr. Peña Greater than 50% of the session was spent on counseling and/or coordination of care Started ECT. Hopefully will continue. Patient educated on: diagnosis Guardian/Caregiver educated on: medication risk/benefits and ECT Reason for contiued inpatient stay Substantial Risk for: inability to function
--- NOTE | 2020-07-18 09:22 | HO.ECTPROC ---
ECT Procedure Note Diagnosis/Treatment Diagnosis: Major Depressive Disorder Current Treatment Number: 1 Treatment: Series Interval Clinical Notes: pt depressed psychotic anxious ECT Settings Device: THYMATRON DGx Electrode Placement: Bifrontal Program/Pulse Width: 0.50 Energy Percent: 100 Seizure Duration By EEG (in seconds): 84 Medications Administration General Anesthetic: Etomidate (12) Muscle Relaxant: Succinylcholine (60) Ancillary Medications Analgesics: Torodol - Pre ECT Anti-emetics: Zofran - Pre ECT Miscillaneous Medications: Propofol (30 mg) Airway Management Airway Management: Bag Mask Ventilation Treatment Recommendations Notes: can lower energy patient quite ambivalent regarding having ECT ruminating in psychotically fearful had some nausea post ECT Pt Tolerated Procedure w/o Issue: Yes
--- NOTE | 2020-07-18 09:51 | HO.POSTANES ---
Post Anesthesia Evaluation Post Anesthesia Evaluation Vital Signs: Vital Signs Temp Pulse Resp BP Pulse Ox 07/18/20 09:27 78 20 135/66 97 07/18/20 09:12 84 20 146/78 H 98 07/18/20 09:07 97 22 H 143/71 H 99 07/18/20 09:02 81 20 137/82 100 07/18/20 08:57 97.7 F 59 16 120/51 L 98 07/18/20 07:28 97.2 F 61 18 130/74 100 07/18/20 07:26 97.8 F 63 17 145/65 H 100 07/18/20 06:11 97.2 F 61 18 130/74 100 Anesthesia: General Mental Status: Awake Pain Control: Satisfactory Nausea/Vomiting: None Hydration: Adequate Anesthesia-Related Issues: No Anes. Related Issues
[2020-07-18] MEDS: LORazepam 0.5 MG TABLET PO ×2 (10:44→21:57)
[2020-07-18] MEDS: Ibuprofen 400 MG TABLET PO (16:39)
--- NOTE | 2020-07-19 05:40 | P.PNPSI_ITS ---
Subjective Subjective Reason For Visit: psychiatric symptoms somatic delusions Interim History: S/P ECT #1. Almost refused but agreed. Tolerated ECT well. Remains focused on body function as before but ambulating, better humor . Agrees to stay till . Next ECT tomorrow Mental Status Exam Mental Status Exam Patient Appearance: Disheveled and Unkempt Patient Orientation: Person, Place and Situation Level of Consciousness: Restless and Alert Patient Behavior: Talkative, Suspicious, Restless and Anxious Mood Description: Suspicious, Depressed, Anxious, Sad, Nervous, Apprehensive and Expansive Affect Description: Anxious and Sad Patient Cognition Impaired: Yes Ability to Follow Directions: Poor Speech Pattern: Perseverating, Rambling and Excessive Diagnostics Vital Signs (24Hr): Vital Signs - 24 hr 07/18/20 06:11 07/18/20 07:26 07/18/20 07:28 Temperature 97.2 F 97.8 F 97.2 F Pulse Rate 61 63 61 Respiratory Rate 18 17 18 Blood Pressure 130/74 145/65 H 130/74 Pulse Oximetry 100 100 100 07/18/20 08:57 07/18/20 09:02 07/18/20 09:07 Temperature 97.7 F Pulse Rate 59 81 97 Respiratory Rate 16 20 22 H Blood Pressure 120/51 L 137/82 143/71 H Pulse Oximetry 98 100 99 07/18/20 09:12 07/18/20 09:27 07/18/20 09:56 Temperature 97.6 F Pulse Rate 84 78 86 Respiratory Rate 20 20 14 Blood Pressure 146/78 H 135/66 134/66 Pulse Oximetry 98 97 96 07/18/20 17:35 Temperature 97.1 F Pulse Rate 72 Respiratory Rate Blood Pressure 105/54 L Pulse Oximetry Body Mass Index 21.2 Labs Results: 07/17/20 07:59 07/13/20 13:23 Labs: Laboratory Results - last 48 hr 07/17/20 07/17/20 07:59 09:07 WBC 5.0 RBC 3.93 L Hgb 12.6 Hct 38.7 MCV 98.5 H MCH 32.1 MCHC 32.6 RDW 12.6 Plt Count 174 MPV 11.2 Immature Gran % (Auto) 0.2 Neut % (Auto) 58.1 Lymph % (Auto) 24.9 [place] % (Auto) 8.0 Eos % (Auto) 7.0 H Baso % (Auto) 1.8 Lymph # (Auto) 1.2 [place] # (Auto) 0.4 Eos # (Auto) 0.4 Baso # (Auto) 0.1 Abs Immat Gran (auto) 0.01 Absolute Neuts (auto) 2.9 Absolute Nucleated RBC 0.000 Nucleated RBC % (auto) 0.0 Urine Color YELLOW Urine Appearance HAZY Urine pH 7.5 Ur Specific [place] 1.010 Urine Protein NEG Urine Glucose (UA) NEG Urine Ketones NEG Urine Blood NEG Urine Nitrite NEG Ur Leukocyte Esterase TRACE H Urine RBC 0-2 Urine WBC 1-4 Ur Squamous Epith Cells TRACE Urine Bacteria TRACE Medications Medications Current Medications Generic Name Dose Route Start Last Admin Trade Name Freq PRN Reason Stop Dose Admin Acetaminophen 650 mg 07/13/20 22:49 07/18/20 21:56 Acetaminophen 325 Mg Tablet PO 650 mg Q6H PRN Administration Headache/Pain Mild Scale (1-3) Al Hydroxide/Mg Hydroxide 30 ml 07/13/20 22:49 Magnesium Hydrox/Alum Hydrox 30 Ml Oral.Susp PO Q6H PRN Heartburn/Nausea Hydroxyzine HCl 25 mg 07/13/20 22:49 07/18/20 00:34 Hydroxyzine Hcl 25 Mg Tablet PO 25 mg BEDTIME PRN Administration Anxiety Ibuprofen 400 mg 07/13/20 22:58 07/18/20 16:39 Ibuprofen 400 Mg Tablet PO 400 mg Q6H PRN Administration Pain, Moderate (Pain Scale 4-6 Magnesium Hydroxide 30 ml 07/13/20 22:49 Milk Of Magnesia 30 Ml Oral.Susp PO DAILY PRN Constipation Nicotine Polacrilex 4 mg 07/13/20 22:49 Nicotine Polacrilex 2 Mg Gum BUCCAL Q2H PRN Nicotine Cravings Olanzapine 2.5 mg 07/13/20 22:51 Olanzapine 2.5 Mg Tablet PO Q4H PRN Psychosis,delusions, ruminatin Olanzapine 5 mg 07/15/20 10:45 07/18/20 22:04 Olanzapine Odt 10 Mg Tab.Rapdis TRANSLINGU Not Given BID RAVINDER Trazodone HCl 50 mg 07/13/20 22:49 Trazodone Hcl 50 Mg Tablet PO BEDTIME PRN Insomnia Allergies Allergies Allergy/AdvReac Type Severity Reaction Status Date / Time silver Allergy Mild rash Verified 06/29/20 10:24 [From TEGADERM AG MESH] penicillin V Allergy Unknown anaphylaxis Verified 06/29/20 10:24 Penicillins [PENICILLINS] Allergy Unknown UNKNOWN Verified 06/29/20 10:24 Clindamycin HCl Allergy Unknown diarrhea Uncoded 01/10/20 00:00 Assessment & Plan Assessment & Plan (1) Depression: Qualifiers: Depression Type: major depressive disorder Major depression recurrence: recurrent Major depression episode severity: severe Status: Acute Code(s): F32.9 - Major depressive disorder, single episode, unspecified (2) Acute anxiety: Status: Acute Code(s): F41.9 - Anxiety disorder, unspecified (3) IBS (irritable bowel syndrome): Status: Acute Code(s): K58.9 - Irritable bowel syndrome without diarrhea (4) Somatic delusion: Status: Acute Code(s): F22 - Delusional disorders Assessment and Plan: Ct ECT Greater than 50% of the session was spent on counseling and/or coordination of care
[2020-07-19 06:00] VITALS: BP 114/55; PULSE 57; RESP 16; TEMP 36.3
[2020-07-19 07:00] VITALS: BMI 22.5
[2020-07-19] MEDS: LORazepam 1 MG TABLET PO (09:20)
[2020-07-19] MEDS: hydrOXYzine HCL 25 MG TABLET PO (22:16)
[2020-07-19] MEDS: Acetaminophen 325 MG TABLET 650 MG PO (22:16)
[2020-07-19 22:18] VITALS: BP 125/72; PULSE 61; TEMP 36
[2020-07-20] VITALS (11 sets, daily range): BP systolic 100–140; BP diastolic 52–71; PULSE 56–81; RESP 14–20; TEMP 35.7–36.8; O2SAT 97–100; BMI 22.5
--- NOTE | 2020-07-20 06:48 | MHC.SHP ---
Pre-Procedural Eval Section A The patient is an INPATIENT: Yes Changes since office visit: No Cold of Flu in the past 2 weeks, No New Medical Problems, No Changes in Medication and No Patient answered all questions The History & Physical has been completed within 30 days and I have reviewed it.: Yes Section B Chief Complaint: psychiatric symptoms somatic delusions Allergies: Allergies Allergy/AdvReac Type Severity Reaction Status Date / Time silver Allergy Mild rash Verified 06/29/20 10:24 [From TEGADERM AG MESH] penicillin V Allergy Unknown anaphylaxis Verified 06/29/20 10:24 Penicillins [PENICILLINS] Allergy Unknown UNKNOWN Verified 06/29/20 10:24 Clindamycin HCl Allergy Unknown diarrhea Uncoded 01/10/20 00:00 Plan Diagnosis/Plan: Unchanged Patient has been examined and remains a candidate for the planned procedure
--- NOTE | 2020-07-20 06:49 | HO.ECTPROC ---
ECT Procedure Note Diagnosis/Treatment Diagnosis: Major Depressive Disorder Current Treatment Number: 2 Treatment: Series Interval Clinical Notes: pt depressed psychotic anxious but showing improvement. ECT Settings Device: THYMATRON DGx Electrode Placement: Bifrontal Program/Pulse Width: 0.25 Energy Percent: 80 Seizure Duration By EEG (in seconds): 67 By Motor Observation (in seconds): 56 Medications Administration General Anesthetic: Etomidate (14) Muscle Relaxant: Succinylcholine (80) Ancillary Medications Analgesics: Torodol - Pre ECT (15) Anti-emetics: Zofran - Pre ECT (4) Miscillaneous Medications: Propofol (30 mg) and Midazolam (2 mg) Airway Management Airway Management: Bag Mask Ventilation Treatment Recommendations Electrode Placement: Bifrontal Program/Pulse Width: 0.25 Energy Percent: 60 Notes: Decrease to 60%
--- NOTE | 2020-07-20 06:49 | HO.PSYCHPN ---
Subjective Subjective Reason For Visit: psychiatric symptoms somatic delusions Interim History: S/P ECT #. See ECT noteTolerated ECT well. Remains focused on body function as before but ambulating, better humor . Agrees to stay till Tu. Next ECT Mon Mental Status Exam Mental Status Exam Patient Appearance: Disheveled and Unkempt Patient Orientation: Person, Place and Situation Level of Consciousness: Restless and Alert Patient Behavior: Talkative, Suspicious, Restless and Anxious Mood Description: Suspicious, Depressed, Anxious, Sad, Nervous, Apprehensive and Expansive Affect Description: Anxious and Sad Patient Cognition Impaired: Yes Ability to Follow Directions: Poor Speech Pattern: Perseverating, Rambling and Excessive Diagnostics Vital Signs (24Hr): Vital Signs - 24 hr 07/19/20 22:18 07/20/20 05:53 Temperature 96.8 F 96.2 F L Pulse Rate 61 61 Respiratory Rate 14 Blood Pressure 125/72 133/65 Pulse Oximetry 100 Body Mass Index 22.5 Labs Results: 07/17/20 07:59 07/13/20 13:23 Medications Medications Current Medications Generic Name Dose Route Start Last Admin Trade Name Freq PRN Reason Stop Dose Admin Acetaminophen 650 mg 07/13/20 22:49 07/19/20 22:16 Acetaminophen 325 Mg Tablet PO 650 mg Q6H PRN Administration Headache/Pain Mild Scale (1-3) Al Hydroxide/Mg Hydroxide 30 ml 07/13/20 22:49 Magnesium Hydrox/Alum Hydrox 30 Ml Oral.Susp PO Q6H PRN Heartburn/Nausea Artificial Tears 2 drop 07/19/20 21:00 07/19/20 22:15 Artificial Tears 15 Ml Drops EYE-BOTH Not Given QID [facility] Clotrimazole 1 appl 07/19/20 17:30 07/19/20 22:14 Clotrimazole 1 % Cream 15 Gm Tube TOPICAL Not Given BID RAVINDER Hydroxyzine HCl 25 mg 07/13/20 22:49 07/19/20 22:16 Hydroxyzine Hcl 25 Mg Tablet PO 25 mg BEDTIME PRN Administration Anxiety Ibuprofen 400 mg 07/13/20 22:58 07/18/20 16:39 Ibuprofen 400 Mg Tablet PO 400 mg Q6H PRN Administration Pain, Moderate (Pain Scale 4-6 Lorazepam 1 mg 07/19/20 09:10 07/19/20 09:20 Lorazepam 1 Mg Tablet PO 1 mg Q4H PRN Administration anxiety/restlessness Magnesium Hydroxide 30 ml 07/13/20 22:49 Milk Of Magnesia 30 Ml Oral.Susp PO DAILY PRN Constipation Nicotine Polacrilex 4 mg 07/13/20 22:49 Nicotine Polacrilex 2 Mg Gum BUCCAL Q2H PRN Nicotine Cravings Olanzapine 2.5 mg 07/13/20 22:51 Olanzapine 2.5 Mg Tablet PO Q4H PRN Psychosis,delusions, ruminatin Olanzapine 5 mg 07/15/20 10:45 07/19/20 22:15 Olanzapine Odt 10 Mg Tab.Rapdis TRANSLINGU Not Given BID RAVINDER Trazodone HCl 50 mg 07/13/20 22:49 Trazodone Hcl 50 Mg Tablet PO BEDTIME PRN Insomnia Vitamin D 25 mcg 07/20/20 09:00 Cholecalciferol (Vitamin D3) 25 Mcg Tablet PO DAILY RAVINDER Allergies Allergies Allergy/AdvReac Type Severity Reaction Status Date / Time silver Allergy Mild rash Verified 06/29/20 10:24 [From TEGADERM AG MESH] penicillin V Allergy Unknown anaphylaxis Verified 06/29/20 10:24 Penicillins [PENICILLINS] Allergy Unknown UNKNOWN Verified 06/29/20 10:24 Clindamycin HCl Allergy Unknown diarrhea Uncoded 01/10/20 00:00 Assessment & Plan Assessment & Plan (1) Depression: Qualifiers: Depression Type: major depressive disorder Major depression recurrence: recurrent Major depression episode severity: severe Status: Acute Code(s): F32.9 - Major depressive disorder, single episode, unspecified (2) Acute anxiety: Status: Acute Code(s): F41.9 - Anxiety disorder, unspecified (3) IBS (irritable bowel syndrome): Status: Acute Code(s): K58.9 - Irritable bowel syndrome without diarrhea (4) Somatic delusion: Status: Acute Code(s): F22 - Delusional disorders Assessment and Plan: Ct ECT Greater than 50% of the session was spent on counseling and/or coordination of care
--- NOTE | 2020-07-20 07:22 | HO.ANESPROP2 ---
FORMERLY [facility] Past Medical History Medical History IBS (irritable bowel syndrome) Severe recurrent major depression with psychotic features Functional capacity: independent ambulation Family History Family History Father No problems noted. Mother Leukemia Cancer Family/Other Lung cancer Surgical History Surgical History H/O colonoscopy Social History Social History Household Members: Spouse and Children Household Members Other:: and adult son (40) Housing: House Do you presently have visiting nurse or other home services: No Alcohol intake: never Smoking Status: Current every day smoker Tobacco Type: Cigarette Packs Per Day: 0.5 Cigarettes Per Day: 10.0 Years Smoked: off and on for approx. 48 years Smoked in Last 30 Days: Yes Patient Interested in Nicotine Replacement: Yes (pt unsure, may try losenger) Patient Given Instructions on How to Stop Smoking: No Second Hand Smoke Exposure: No Use of substances other than those prescribed or required for medical reasons: No Currently Displaying Signs/Symptoms of Drug Intoxication Withdrawal: No Spiritual Healthcare Practices: unknown Congregation Healthcare Practices: unknown Cultural Healthcare Practices: unknown Advance Directives: No Advance Directives Information Provided: Yes Do you have thoughts of harming others: None Do you have a plan to hurt others: No Plan Recently lost weight without trying: Yes service: No Sexual orientation: Straight/Heterosexual Meds Allergies Allergy/AdvReac Type Severity Reaction Status Date / Time silver Allergy Mild rash Verified 06/29/20 10:24 [From TEGADERM AG MESH] penicillin V Allergy Unknown anaphylaxis Verified 06/29/20 10:24 Penicillins [PENICILLINS] Allergy Unknown UNKNOWN Verified 06/29/20 10:24 Clindamycin HCl Allergy Unknown diarrhea Uncoded 01/10/20 00:00 Home Medications Medication Instructions Recorded Confirmed Type multivitamin 1 tab PO DAILY 06/29/20 06/29/20 History Exam Exam Date and Time: July 20, [id number] Height,Weight and Vital Signs: Height 5 ft 4 in Weight 59.6 kg Last Vital Signs Temp 98.3 F 07/20/20 06:41 Pulse 66 07/20/20 06:41 Resp 17 07/20/20 06:41 BP 124/68 07/20/20 06:41 Pulse Ox 98 07/20/20 06:41 Pertinent Lab Results Pertinent Lab Results: Laboratory Tests 07/13/20 07/13/20 07/13/20 13:23 13:23 13:23 WBC 6.8 RBC 4.76 Hgb 15.2 Hct 45.8 MCV 96.2 MCH 31.9 MCHC 33.2 RDW 12.5 Plt Count 241 MPV 11.2 Immature Gran % (Auto) 0.3 Neut % (Auto) 63.9 Lymph % (Auto) 25.6 Gilliam % (Auto) 5.6 Eos % (Auto) 3.1 Baso % (Auto) 1.5 Lymph # (Auto) 1.7 Gilliam # (Auto) 0.4 Eos # (Auto) 0.2 Baso # (Auto) 0.1 Abs Immat Gran (auto) 0.02 Absolute Neuts (auto) 4.3 Absolute Nucleated RBC 0.000 Nucleated RBC % (auto) 0.0 Sodium Potassium Chloride Carbon Dioxide Anion Gap BUN Creatinine Estim Creat Clear Calc Estimated GFR Random Glucose Estimat Average Glucose Hemoglobin A1c % Calcium Magnesium Total Bilirubin Direct Bilirubin AST ALT Alkaline Phosphatase Total Protein Albumin Triglycerides Cholesterol LDL Cholesterol, Calc HDL Cholesterol Vitamin B12 Folate TSH Free T4 Urine Color STRAW Urine Appearance CLEAR Urine pH 6.5 Ur Specific Reading <= 1.005 Urine Protein NEG Urine Glucose (UA) NEG Urine Ketones NEG Urine Blood TRACE Urine Nitrite NEG Ur Leukocyte Esterase NEG Urine RBC 0-2 Urine WBC 0 Ur Squamous Epith Cells TRACE Urine Bacteria NONE Urine Opiates Screen Not Detected Ur Barbiturates Screen Not Detected Ur Phencyclidine Scrn Not Detected Ur Amphetamines Screen Not Detected U Benzodiazepines Scrn Not Detected Urine Cocaine Screen Not Detected U Marijuana (THC) Screen Not Detected Coronavirus (PCR) 07/13/20 07/13/20 07/14/20 13:23 19:15 07:59 WBC RBC Hgb Hct MCV MCH MCHC RDW Plt Count MPV Immature Gran % (Auto) Neut % (Auto) Lymph % (Auto) Gilliam % (Auto) Eos % (Auto) Baso % (Auto) Lymph # (Auto) Gilliam # (Auto) Eos # (Auto) Baso # (Auto) Abs Immat Gran (auto) Absolute Neuts (auto) Absolute Nucleated RBC Nucleated RBC % (auto) Sodium 141 Potassium 4.4 Chloride 104 Carbon Dioxide 28 Anion Gap 13 BUN 13 Creatinine 0.80 Estim Creat Clear Calc 61.3 Estimated GFR > 60 Random Glucose 108 Estimat Average Glucose 103 Hemoglobin A1c % 5.2 Calcium 10.0 Magnesium 2.3 Total Bilirubin 0.6 Direct Bilirubin 0.3 AST 12 ALT 6 Alkaline Phosphatase 48 Total Protein 7.7 Albumin 4.8 Triglycerides Cholesterol LDL Cholesterol, Calc HDL Cholesterol Vitamin B12 Folate TSH Free T4 Urine Color Urine Appearance Urine pH Ur Specific Reading Urine Protein Urine Glucose (UA) Urine Ketones Urine Blood Urine Nitrite Ur Leukocyte Esterase Urine RBC Urine WBC Ur Squamous Epith Cells Urine Bacteria Urine Opiates Screen Ur Barbiturates Screen Ur Phencyclidine Scrn Ur Amphetamines Screen U Benzodiazepines Scrn Urine Cocaine Screen U Marijuana (THC) Screen Coronavirus (PCR) NEGATIVE 07/14/20 07/14/20 07/16/20 07:59 07:59 09:05 WBC 5.4 RBC 4.33 Hgb 13.8 Hct 42.5 MCV 98.2 H MCH 31.9 MCHC 32.5 RDW 12.7 Plt Count 196 MPV 11.2 Immature Gran % (Auto) 0.2 Neut % (Auto) 63.3 Lymph % (Auto) 22.5 Gilliam % (Auto) 5.7 Eos % (Auto) 6.6 H Baso % (Auto) 1.7 Lymph # (Auto) 1.2 Gilliam # (Auto) 0.3 Eos # (Auto) 0.4 Baso # (Auto) 0.1 Abs Immat Gran (auto) 0.01 Absolute Neuts (auto) 3.4 Absolute Nucleated RBC 0.000 Nucleated RBC % (auto) 0.0 Sodium Potassium Chloride Carbon Dioxide Anion Gap BUN Creatinine Estim Creat Clear Calc Estimated GFR Random Glucose Estimat Average Glucose Hemoglobin A1c % Calcium Magnesium Total Bilirubin Direct Bilirubin AST ALT Alkaline Phosphatase Total Protein Albumin Triglycerides 84 Cholesterol 197 LDL Cholesterol, Calc 123 HDL Cholesterol 58 Vitamin B12 1142 H Folate 14.4 TSH 1.28 Free T4 0.98 Urine Color Urine Appearance Urine pH Ur Specific Reading Urine Protein Urine Glucose (UA) Urine Ketones Urine Blood Urine Nitrite Ur Leukocyte Esterase Urine RBC Urine WBC Ur Squamous Epith Cells Urine Bacteria Urine Opiates Screen Ur Barbiturates Screen Ur Phencyclidine Scrn Ur Amphetamines Screen U Benzodiazepines Scrn Urine Cocaine Screen U Marijuana (THC) Screen Coronavirus (PCR) 07/17/20 07/17/20 07:59 09:07 WBC 5.0 RBC 3.93 L Hgb 12.6 Hct 38.7 MCV 98.5 H MCH 32.1 MCHC 32.6 RDW 12.6 Plt Count 174 MPV 11.2 Immature Gran % (Auto) 0.2 Neut % (Auto) 58.1 Lymph % (Auto) 24.9 Gilliam % (Auto) 8.0 Eos % (Auto) 7.0 H Baso % (Auto) 1.8 Lymph # (Auto) 1.2 Gilliam # (Auto) 0.4 Eos # (Auto) 0.4 Baso # (Auto) 0.1 Abs Immat Gran (auto) 0.01 Absolute Neuts (auto) 2.9 Absolute Nucleated RBC 0.000 Nucleated RBC % (auto) 0.0 Sodium Potassium Chloride Carbon Dioxide Anion Gap BUN Creatinine Estim Creat Clear Calc Estimated GFR Random Glucose Estimat Average Glucose Hemoglobin A1c % Calcium Magnesium Total Bilirubin Direct Bilirubin AST ALT Alkaline Phosphatase Total Protein Albumin Triglycerides Cholesterol LDL Cholesterol, Calc HDL Cholesterol Vitamin B12 Folate TSH Free T4 Urine Color YELLOW Urine Appearance HAZY Urine pH 7.5 Ur Specific Reading 1.010 Urine Protein NEG Urine Glucose (UA) NEG Urine Ketones NEG Urine Blood NEG Urine Nitrite NEG Ur Leukocyte Esterase TRACE H Urine RBC 0-2 Urine WBC 1-4 Ur Squamous Epith Cells TRACE Urine Bacteria TRACE Urine Opiates Screen Ur Barbiturates Screen Ur Phencyclidine Scrn Ur Amphetamines Screen U Benzodiazepines Scrn Urine Cocaine Screen U Marijuana (THC) Screen Coronavirus (PCR) Airway Mallampati Class: II TM Dist: >3cm Neck ROM: Full Loose/Missing/Broken Teeth: Yes (Loose, broken bottom right) Heart: RRR Lungs: CTAB Assessment and Plan Assessment Anesthesia Assessment: Anesthesia Plan Discussed and Chart Reviewed Final Anesthetic Review NPO: Yes ASA Class: II Final Preanesthetic Review: No Changes in Pt Med Stat, Meds/Allgs Chart Reviewed, Consent Obtained/Reviewed and Anes Risks/Benef Reviewed Patient Risk: Intermediate Procedure Risk: Intermediate Anesthetic Plan Anesthetic Plan: GA Disposition: Standard PACU and Inp. Admit - Standard Bed
--- NOTE | 2020-07-20 08:16 | HO.POSTANES ---
Post Anesthesia Evaluation Post Anesthesia Evaluation Vital Signs: Vital Signs Temp Pulse Resp BP Pulse Ox 07/20/20 08:11 68 17 138/66 97 07/20/20 07:56 97.9 F 79 16 140/71 H 100 07/20/20 07:51 72 17 118/62 99 07/20/20 07:46 66 20 100/66 99 07/20/20 07:41 64 16 114/52 L 99 07/20/20 07:36 98.1 F 56 15 130/58 L 100 07/20/20 06:41 98.3 F 66 17 124/68 98 07/20/20 05:53 96.2 F L 61 14 133/65 100 07/19/20 22:18 96.8 F 61 125/72 Anesthesia: General Mental Status: Awake Pain Control: Satisfactory Nausea/Vomiting: None Hydration: Adequate Anesthesia-Related Issues: No Anes. Related Issues
[2020-07-20] MEDS: Lactated Ringers 1,000 ML 50 ML IVCONT (08:20)
[2020-07-20] MEDS: LORazepam 1 MG TABLET PO (09:12)
[2020-07-20] MEDS: Cholecalciferol (Vitamin D3) 10 MCG TABLET 20 MCG PO (10:22)
[2020-07-20] MEDS: Clotrimazole 1 % Cream 15 GM TUBE 1 APPL TOPICAL ×2 (10:23→22:08)
[2020-07-20] MEDS: Artificial Tears 15 ML DROPS 1 DROP EYE-BOTH ×2 (17:43→22:08)
[2020-07-20] MEDS: OLANZapine ODT 10 MG TAB.RAPDIS TRANSLINGU (22:10)
[2020-07-21 06:15] VITALS: BP 111/54; PULSE 54; RESP 16; TEMP 36.9
[2020-07-21] MEDS: Cholecalciferol (Vitamin D3) 10 MCG TABLET 20 MCG PO (08:56)
[2020-07-21] MEDS: LORazepam 1 MG TABLET PO (08:56)
[2020-07-21] MEDS: Clotrimazole 1 % Cream 15 GM TUBE 1 APPL TOPICAL (08:57)
--- NOTE | 2020-07-21 10:58 | HO.PSYCHPN ---
Subjective Subjective Date of Service: 07/21/20 Reason For Visit: psychiatric symptoms somatic delusions Subjective Notes: Conditional Voluntary and 3 Day Interim History: Patient with many somatic complaints, saying no one has examined her buttocks or genital area co fecal material coming out of vagina not agreeing to take olanzapine but had one ECT and find ativan helpful Medication Compliance: No (refusing olanzapine trial) Side effects from medications: No Attending Groups: No Review of Systems Review of Systems too many somatic complaints to list hx of colonscopy 5 years ago which started all of this Yes Unobtainable due to mental status Mental Status Exam Mental Status Exam Narrative: well dressed and kempt , good eye contact, had to be reminded to put on mask Patient Appearance: Well Grooomed and Appropriate Patient Orientation: Person, Place, Time and Situation Level of Consciousness: Awake and Appropriate Patient Behavior: Appropriate, Talkative, Cooperative, Anxious and Fatigued Mood Description: Calm and Anxious Affect Description: Calm Patient Cognition Impaired: No Ability to Follow Directions: Good Speech Pattern: Clear Hallucinations: None Delusions: Present (somatic) Thought Process: Intact and Goal Oriented Thought Content: positive for Perseveration and positive for Preoccupation Depressive Symptoms: Increased Anxiety and Unexplained Stomach Pain Judgement: Poor Diagnostics Vital Signs (24Hr): Vital Signs - 24 hr 07/20/20 18:00 07/21/20 06:15 Temperature 98.2 F 98.5 F Pulse Rate 72 54 Respiratory Rate 16 Blood Pressure 111/52 L 111/54 L Body Mass Index 22.5 Labs Results: 07/17/20 07:59 07/13/20 13:23 Medications Medications Current Medications Generic Name Dose Route Start Last Admin Trade Name Carrington PRN Reason Stop Dose Admin Acetaminophen 650 mg 07/20/20 08:03 Acetaminophen 325 Mg Tablet PO Q6H PRN Headache/Pain Mild Scale (1-3) Al Hydroxide/Mg Hydroxide 30 ml 07/20/20 08:03 Magnesium Hydrox/Alum Hydrox 30 Ml Oral.Susp PO Q6H PRN Heartburn/Nausea Artificial Tears 1 drop 07/20/20 09:00 07/21/20 08:58 Artificial Tears 15 Ml Drops EYE-BOTH Not Given Q4H RAVINDER Clotrimazole 1 appl 07/20/20 09:00 07/21/20 08:57 Clotrimazole 1 % Cream 15 Gm Tube TOPICAL 1 appl BID RAVINDER Administration Hydroxyzine HCl 25 mg 07/20/20 08:03 Hydroxyzine Hcl 25 Mg Tablet PO BEDTIME PRN Anxiety Lorazepam 1 mg 07/20/20 08:48 07/21/20 08:56 Lorazepam 1 Mg Tablet PO 1 mg Q6H PRN Administration Anxiety Magnesium Hydroxide 30 ml 07/20/20 08:03 Milk Of Magnesia 30 Ml Oral.Susp PO DAILY PRN Constipation Olanzapine 10 mg 07/20/20 21:00 07/20/20 22:10 Olanzapine Odt 10 Mg Tab.Rapdis TRANSLINGU 10 mg BEDTIME RAVINDER Administration Trazodone HCl 50 mg 07/20/20 08:03 Trazodone Hcl 50 Mg Tablet PO BEDTIME PRN Insomnia Vitamin D 20 mcg 07/20/20 09:00 07/21/20 08:56 Cholecalciferol (Vitamin D3) 10 Mcg Tablet PO 20 mcg DAILY RAVINDER Administration Allergies Allergies Allergy/AdvReac Type Severity Reaction Status Date / Time silver Allergy Mild rash Verified 06/29/20 10:24 [From TEGADERM AG MESH] penicillin V Allergy Unknown anaphylaxis Verified 06/29/20 10:24 Penicillins [PENICILLINS] Allergy Unknown UNKNOWN Verified 06/29/20 10:24 Clindamycin HCl Allergy Unknown diarrhea Uncoded 01/10/20 00:00 Assessment & Plan Assessment & Plan (1) Somatic delusion: Status: Acute Code(s): F22 - Delusional disorders Assessment and Plan: focused on feces coming out vagina i am assuming she has been checked for fistula? Greater than 50% of the session was spent on counseling and/or coordination of care
[2020-07-21 17:15] VITALS: BP 124/59; PULSE 64; TEMP 36.3
[2020-07-21] MEDS: Acetaminophen 325 MG TABLET 650 MG PO (21:29)
[2020-07-21] MEDS: hydrOXYzine HCL 25 MG TABLET PO (21:30)
[2020-07-22 06:35] VITALS: BP 135/60; PULSE 63; RESP 18; TEMP 35.8; O2SAT 98
[2020-07-22] MEDS: LORazepam 1 MG TABLET PO (08:26)
[2020-07-22] MEDS: Cholecalciferol (Vitamin D3) 10 MCG TABLET 20 MCG PO (08:26)
[2020-07-22] MEDS: Clotrimazole 1 % Cream 15 GM TUBE 1 APPL TOPICAL ×2 (08:27→21:46)
--- NOTE | 2020-07-22 11:13 | HO.PSYCHPN ---
Subjective Subjective Date of Service: 07/22/20 Reason For Visit: psychiatric symptoms somatic delusions Subjective Notes: 3 Day Interim History: Pt continues to feel like her body is falling apart, can't feel her legs or arms Medication Compliance: No Side effects from medications: No Attending Groups: No Review of Systems Review of Systems can't breath, feels her legs/arms can't feel, feels she is off balance, also says she can't poop and that fearful her bm will come out her vagina Mental Status Exam Mental Status Exam Narrative: casually dressed Patient Appearance: Well Grooomed Patient Orientation: Person, Place, Time and Situation Level of Consciousness: Awake Patient Behavior: Restless and Anxious Mood Description: Apprehensive Affect Description: Fearful Patient Cognition Impaired: No Ability to Follow Directions: Good Speech Pattern: Clear Hallucinations: None Delusions: Present (somatic - told her she can't have these many things wrong with her) Thought Process: Intact Thought Content: positive for Perseveration Depressive Symptoms: Diff. Making Decisions and Unexplained Stomach Pain Judgement: Poor Diagnostics Vital Signs (24Hr): Vital Signs - 24 hr 07/21/20 17:15 07/22/20 06:35 Temperature 97.4 F 96.5 F L Pulse Rate 64 63 Respiratory Rate 18 Blood Pressure 124/59 L 135/60 Pulse Oximetry 98 Body Mass Index 22.5 Labs Results: 07/17/20 07:59 07/13/20 13:23 Medications Medications Current Medications Generic Name Dose Route Start Last Admin Trade Name Freq PRN Reason Stop Dose Admin Acetaminophen 650 mg 07/20/20 08:03 07/21/20 21:29 Acetaminophen 325 Mg Tablet PO 650 mg Q6H PRN Administration Headache/Pain Mild Scale (1-3) Al Hydroxide/Mg Hydroxide 30 ml 07/20/20 08:03 Magnesium Hydrox/Alum Hydrox 30 Ml Oral.Susp PO Q6H PRN Heartburn/Nausea Artificial Tears 1 drop 07/21/20 11:07 Artificial Tears 15 Ml Drops EYE-BOTH Q4H PRN dry eyes Clotrimazole 1 appl 07/20/20 09:00 07/22/20 08:27 Clotrimazole 1 % Cream 15 Gm Tube TOPICAL 1 appl BID RAVINDER Administration Hydroxyzine HCl 25 mg 07/20/20 08:03 07/21/20 21:30 Hydroxyzine Hcl 25 Mg Tablet PO 25 mg BEDTIME PRN Administration Anxiety Lorazepam 1 mg 07/20/20 08:48 07/22/20 08:26 Lorazepam 1 Mg Tablet PO 1 mg Q6H PRN Administration Anxiety Magnesium Hydroxide 30 ml 07/20/20 08:03 Milk Of Magnesia 30 Ml Oral.Susp PO DAILY PRN Constipation Olanzapine 10 mg 07/20/20 21:00 07/21/20 21:32 Olanzapine Odt 10 Mg Tab.Rapdis TRANSLINGU Not Given BEDTIME RAVINDER Trazodone HCl 50 mg 07/20/20 08:03 Trazodone Hcl 50 Mg Tablet PO BEDTIME PRN Insomnia Vitamin D 20 mcg 07/20/20 09:00 07/22/20 08:26 Cholecalciferol (Vitamin D3) 10 Mcg Tablet PO 20 mcg DAILY RAVINDER Administration Allergies Allergies Allergy/AdvReac Type Severity Reaction Status Date / Time silver Allergy Mild rash Verified 06/29/20 10:24 [From TEGADERM AG MESH] penicillin V Allergy Unknown anaphylaxis Verified 06/29/20 10:24 Penicillins [PENICILLINS] Allergy Unknown UNKNOWN Verified 06/29/20 10:24 Clindamycin HCl Allergy Unknown diarrhea Uncoded 01/10/20 00:00 Assessment & Plan Assessment & Plan (1) Somatic delusion: Status: Acute Code(s): F22 - Delusional disorders Assessment and Plan: pt agreed to try ziprasodone instead of olanzapine due to fear about weight gain... but... then didn't take it Greater than 50% of the session was spent on counseling and/or coordination of care
[2020-07-22 16:35] VITALS: BP 116/67; PULSE 71; TEMP 36.4
[2020-07-22] MEDS: Acetaminophen 325 MG TABLET 650 MG PO (21:52)
[2020-07-22] MEDS: hydrOXYzine HCL 25 MG TABLET PO (21:52)
[2020-07-23] VITALS (12 sets, daily range): BP systolic 115–156; BP diastolic 62–81; PULSE 57–86; RESP 16–21; TEMP 36.1–36.8; O2SAT 96–100; BMI 22.5
--- NOTE | 2020-07-23 07:02 | MHC.SHP ---
Pre-Procedural Eval Section A The patient is an INPATIENT: Yes Changes since office visit: Yes Changes in Medication and Yes Patient answered all questions; No Cold of Flu in the past 2 weeks and No New Medical Problems The History & Physical has been completed within 30 days and I have reviewed it.: Yes Section B Chief Complaint: psychiatric symptoms somatic delusions Allergies: Allergies Allergy/AdvReac Type Severity Reaction Status Date / Time silver Allergy Mild rash Verified 06/29/20 10:24 [From TEGADERM AG MESH] penicillin V Allergy Unknown anaphylaxis Verified 06/29/20 10:24 Penicillins [PENICILLINS] Allergy Unknown UNKNOWN Verified 06/29/20 10:24 Clindamycin HCl Allergy Unknown diarrhea Uncoded 01/10/20 00:00 Plan Patient has been examined and remains a candidate for the planned procedure
--- NOTE | 2020-07-23 07:02 | HO.ECTPROC ---
Documented by User: Gabo Jane MD 07/23/20 22:53 ECT Procedure Note Diagnosis/Treatment Diagnosis: Major Depressive Disorder Current Treatment Number: 3 Treatment: Series Interval Clinical Notes: pt depressed psychotic anxious somatically preoccupied ECT Settings Device: THYMATRON DGx Electrode Placement: Bifrontal Program/Pulse Width: 0.25 Energy Percent: 65 Seizure Duration By EEG (in seconds): 61 By Motor Observation (in seconds): 56 Medications Administration General Anesthetic: Etomidate (14) Muscle Relaxant: Succinylcholine (80) Ancillary Medications Analgesics: Torodol - Pre ECT (15) Anti-emetics: Zofran - Pre ECT (4) Miscillaneous Medications: Propofol (30 mg) and Midazolam (2 mg) Airway Management Airway Management: Bag Mask Ventilation Treatment Recommendations Electrode Placement: Bifrontal Program/Pulse Width: 0.25 Energy Percent: 50 Notes: continue series remains psychotically preoccupied Pt Tolerated Procedure w/o Issue: Yes
[2020-07-23] MEDS: Cholecalciferol (Vitamin D3) 10 MCG TABLET 20 MCG PO (08:28)
[2020-07-23] MEDS: Ziprasidone 20 MG CAPSULE PO (08:29)
[2020-07-23] MEDS: Clotrimazole 1 % Cream 15 GM TUBE 1 APPL TOPICAL ×2 (09:01→20:17)
[2020-07-23] MEDS: Acetaminophen 325 MG TABLET 650 MG PO ×2 (09:09→21:49)
--- NOTE | 2020-07-23 14:09 | PC.NURSE ---
RETRACTED [address] FERRIS.
[2020-07-24 05:55] VITALS: BP 121/70; PULSE 61; RESP 16; TEMP 36.6
[2020-07-24] MEDS: Cholecalciferol (Vitamin D3) 10 MCG TABLET 20 MCG PO (08:29)
[2020-07-24] MEDS: Clotrimazole 1 % Cream 15 GM TUBE 1 APPL TOPICAL (08:30)
[2020-07-24] MEDS: Acetaminophen 325 MG TABLET 650 MG PO (08:53)
--- NOTE | 2020-07-24 12:44 | P.DS_ITS ---
DS: Providers Provider Date of admission: 07/13/20 22:18 Primary care physician: Unknown Physician DS: Diagnosis Discharge Diagnosis (1) Somatic delusion: Status: Acute (2) Depression: Status: Acute Discharge Plan Discharge Patient Disposition: Home, Self-Care Referrals: Renny Izquierdo, therapist [Other] - 07/27/20 2:00 pm (Appointment by telehealth) Dhruv Marina, psychiatry [Other] - 08/20/20 10:20 am (Telehealth) Dhruv Marina psychiatry [Other] - 09/19/20 6:40 pm (Telehealth) Shavon Awad MD [Physician] - (Office will call you to schedule appointment. ) Discharge Medications: New ziprasidone HCl 20 mg Capsule 20 mg PO BID 30 Days Qty: 60 RF: 0 lorazepam 1 mg Tablet 1 mg PO Q6H PRN (Reason: Anxiety) 30 Days Qty: 60 RF: 0 cholecalciferol (vitamin D3) [Vitamin D3] 10 mcg (400 unit) Tablet 20 mcg PO DAILY 30 Days Qty: 60 RF: 0 Continued multivitamin Tablet 1 tab PO DAILY 30 Days Qty: 30 RF: 0 Discharge Orders: Discharge Order (Routine); Ordered 07/24/20 Ordered By: Jerardo Lucas Diet: advance to your usual diet Activity on Discharge: As tolerated Patient Instructions: Anxiety (ED) Stand Alone Forms: Community Support Discharge Date/Time: 07/24/20 14:10 Activity Restrictions/Additional Instructions: OUTPATIENT ECT scheduled for Nov 6, 9, 13 and 16 Visit Report Forms: Patient Portal Discharge page Care Plan Goals: Improve mood Resolve somatic preoccupation Health Concerns: Severe depression with somatic focus (delusional) Medication non compliance Plan of Treatment: Outpatient ECT Comply with prescribed medications Mental Status Exam Mental Status Exam Patient Appearance: Well Grooomed Patient Orientation: Person, Place, Time and Situation Level of Consciousness: Awake Patient Behavior: Talkative and Suspicious Mood Description: Depressed Affect Description: Depressed Ability to Follow Directions: Excellent Speech Pattern: Perseverating Delusions: Paranoid Ideation Thought Process: Intact Thought Content: positive for Hypochondriasis (delusions) Depressive Symptoms: Thoughts of /Suicide (denies) Judgement: Poor Data Data Completed and Pending Completed studies during hospitalization [Text1]: 07/17/20 09:06 Urine clean catch - Clean Catch Midstream Urine Culture - Final DS: Summary Hospital Course Hospital Course: pt arrived to ED via ambulance after family called EMS due to patient psychosis and escalating inability to function. Pt is very psychotic, depressed, and anxious. She reportedly had increasing conflict with family members and is paranoid about them treating her badly and not understanding her. She reports she sat on the couch for months during the pandemic and now she has no blood in her body. She reports all the blood in her arms and legs is gone. she only has blood near her neck and head. She reports severe pain throughout her body despite no medical etiology . She reports she is unable to stand up despite standing up and walking without obvious problem; she is very depressed and anxious. Past Psychiatric History: Pt is known to and has had 2 other admission, most recent in 2016. 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 She was apparently stable since then until this admission. Pt is known to [facility]. Hx of good response to ECT for psychotic depression. Pt exhib ited gross body distortion and Cotard's symptoms. She agreed after much negotitiation to start ECT. She received 3 ECT with positive response. She was still preoccupied but less intensely. She was DCd as she agreed to ct ECT as an OP. and family and Team would have liked her to stay but she signed a 3 day notice and agreed to OP ECT. She refused OLZ and Geodon. Continues to have no insight. has been overwhelmed and suggested he might separate if she continues to refuse treatment as he is unable to care for her. Status at Discharge Functional status at discharge: independent ambulation Overall status at discharge: patient is progressing back to baseline Time Spent with Patient Time attestation: Total time spent providing and/or coordinating discharge services: Time spent: Greater than 30 minutes
== END 2020-07-24 14:10 | disposition home or self-care (01) | DRG 881 ==
LOC: HO.ED 22:15 → HO.PM5 22:34
PROVIDERS: Nurse Practitioner Family; Psychiatry & Neurology Psychiatry; Admitting Provider Clinical Nurse Specialist Psychiatric/Mental Health; Emergency Provider Emergency Medicine; Visit Provider Psychiatry & Neurology Psychiatry
PROC: GZB4ZZZ Other Electroconvulsive Therapy (ICD-10-PCS; CPT 90870; principal; 2020-07-18 16:00)
DX: F32.9 Major depressive disorder, single episode, unspecified (principal); F22 Delusional disorders; F17.210 Nicotine dependence, cigarettes, uncomplicated; Z23 Encounter for immunization; F41.9 Anxiety disorder, unspecified; K58.9 Irritable bowel syndrome, unspecified; Z20.828 Contact with and (suspected) exposure to other viral communicable diseases; Z88.0 Allergy status to penicillin; Z79.899 Other long term (current) drug therapy
CPT/HCPCS: 36415; 80048; 80061; 80076; 80307; 81001; 82607; 82746; 83036; 83735; 84439; 84443; 85025; 87086; 87635; 90471; 90686; 90870; 93005; 99223; 99232; 99233; 99239; 99285; J2250

== ENCOUNTER → 2020-08-20 14:45 | Outpatient (BNVA) | payer MEDICARE, SELFPAY | PROVIDERS: Referring Provider Internal Medicine; Visit Provider Internal Medicine Gastroenterology | DX: K58.9 Irritable bowel syndrome, unspecified (principal); F33.2 Major depressive disorder, recurrent severe without psychotic features | CPT/HCPCS: 99212 ==

== ENCOUNTER → 2021-02-05 13:40 | Outpatient (BNVA) | payer MEDICARE, SELFPAY | PROVIDERS: Visit Provider Physician Assistant | DX: Z13.89 Encounter for screening for other disorder (principal) | CPT/HCPCS: Q3014 ==

== ENCOUNTER 2021-07-26 12:09 | Inpatient (IN) | payer MEDICARE, SELFPAY ==
--- NOTE | ~2021-07-26 | XR_ITS ---
EXAMINATION: XR CHEST XR ABDOMEN CLINICAL INFORMATION: Cough. Constipation. COMPARISON: 06/25/2020 TECHNIQUE: PA view of the chest. AP upright view of the abdomen. FINDINGS: Chest: The lungs are well expanded. There is no focal consolidation, edema, or effusion. No pneumothorax. The cardiomediastinal silhouette is within normal limits. No acute osseous abnormality. Abdomen: Normal bowel gas pattern. No dilated loops of bowel. Scattered gas and stool throughout the colon with no abnormal colonic stool burden. No free air. No acute osseous abnormality. XR/XR KUB IMPRESSION: Clear lungs. Normal bowel gas pattern.
--- NOTE | ~2021-07-26 | XR_ITS ---
EXAMINATION: XR CHEST XR ABDOMEN CLINICAL INFORMATION: Cough. Constipation. COMPARISON: 06/25/2020 TECHNIQUE: PA view of the chest. AP upright view of the abdomen. FINDINGS: Chest: The lungs are well expanded. There is no focal consolidation, edema, or effusion. No pneumothorax. The cardiomediastinal silhouette is within normal limits. No acute osseous abnormality. Abdomen: Normal bowel gas pattern. No dilated loops of bowel. Scattered gas and stool throughout the colon with no abnormal colonic stool burden. No free air. No acute osseous abnormality. XR/XR chest 1V IMPRESSION: Clear lungs. Normal bowel gas pattern.
[2021-07-26 12:22] VITALS: BP 173/74; BP 176/98; PULSE 104; PULSE 105; RESP 20; TEMP 36.8; O2SAT 98; O2SAT 99; BMI 21.9
--- NOTE | 2021-07-26 12:29 | ECG_ITS ---
Test Reason : MED CLEARANCE Blood Pressure : / mmHG Vent. Rate : 095 BPM Atrial Rate : 095 BPM P-R Int : 118 ms QRS Dur : 080 ms QT Int : 358 ms P-R-T Axes : 073 041 038 degrees QTc Int : 449 ms Normal sinus rhythm Normal ECG No significant changes seen Heart rate has increased Referred By: Ebonie Wilder Electronically Signed By:ROSA MAZARIEGOS MD
--- NOTE | 2021-07-26 12:39 | ED.PSYCH ---
HPI - Psych General Chief Complaint: Psychiatric Symptoms Stated Complaint: crisis Time Seen by Provider: 07/26/21 12:28 Source: patient and EMS Mode of arrival: EMS Limitations: other (poor historian, rambling all over the place) History of Present Illness HPI Narrative: ousmane'ts complaint to me today is almost a perfect match to what she had in her inpatient psychiatry summary from Jul 2020 - responded to ECT. MD complaint: other (psychosis, found naked, states her arms are not attached and her chest is missing , she has no blood in her neck or head) Onset (ago): week(s) Duration: getting worse History of same: Yes Relieving factors: none Exacerbating factors: other (states she has not been on medications for a long time I will not take medications ) Context: not taking psychiatric medications Associated psychiatric symptoms: racing thoughts and delusions Associated symptoms: other (loss of her chest, loss of blood in her head and neck) Treatments prior to arrival: none Related Data Home Medications Medication Instructions Recorded Confirmed No Known Home Meds 07/26/21 07/26/21 Allergies Allergy/AdvReac Type Severity Reaction Status Date / Time silver Allergy Mild rash Verified 02/05/21 13:40 [From TEGADERM AG MESH] penicillin V Allergy Unknown anaphylaxis Verified 02/05/21 13:40 Penicillins [PENICILLINS] Allergy Unknown UNKNOWN Verified 02/05/21 13:40 Clindamycin HCl Allergy Unknown diarrhea Uncoded 02/05/21 13:40 Review of Systems Review of Systems: ROS unable to be obtained due to rambling speech, diff to follow COUNT INCLUDES THE [facility] Past Medical History Attestation statement: The following information was validated with the patient. Medical History Acute anxiety Depression IBS (irritable bowel syndrome) Severe recurrent major depression with psychotic features Somatic delusion Surgical History H/O colonoscopy Family History Family History Father No problems noted. Mother Leukemia Cancer Family/Other Lung cancer Social History Social History Household Members: Spouse and Children Household Members Other:: and adult son (40) Housing: House Do you presently have visiting nurse or other home services: No Alcohol intake: never Patient Tobacco Use Status: Never used Tobacco Cigarette Packs Per Day: 0.5 Cigarettes Per Day: 10.0 Years Smoked: off and on for approx. 48 years Second Hand Smoke Exposure: No Use of substances other than those prescribed or required for medical reasons: No Advance Directives: Yes Advance Directives Information Provided: Yes Advance Directives on File: No service: No Current occupational status: disabled Sexual orientation: Straight/Heterosexual Physical Exam Vital Signs: Vital Signs: Last Vital Signs Temp 98.3 F 07/26/21 12:22 Pulse 105 H 07/26/21 12:22 Resp 20 07/26/21 12:22 BP 173/74 H 07/26/21 12:22 Pulse Ox 99 07/26/21 12:22 Body Mass Index 21.9 Appearance: Alert. Rambling, rapid speech, pacing around the room, agitated, anxious, i have no blood in my head/neck. my chest is no longer present Eyes: Pupils equal, round and reactive to light. ENT: Pharynx normal. Neck: Normal inspection. Neck supple. CVS: Normal heart rate and rhythm. Pulses normal. Respiratory: No respiratory distress. Breath sounds normal. Abdomen: Soft and non-tender. Skin: Skin warm and dry. Normal skin color. Normal skin turgor. Extremities: No lower extremity edema. No calf ttp Neuro: unable to assess full exam, MAEB. No motor deficit. No sensory deficit. cannot assess CN fully Psych: disheveled, rambling, talking about netflex then lack of blood in her body, delusional Course Course Course Narrative: Physician observation started at 245pm. Patient placed in physician observation because the patient needed more time for crisis evaluation to aid in the assistance with psychiatric placement. At the time observation was started the patient's vitals were stable, patient is alert and oriented but agitated, Neuro: nonfocal, CV RRR, Lungs clear anticipate admit to inpatient psychiatry MDM - Psych MDM Narrative Medical decision making narrative: 65 yo female with depression and psychosis with hx of needing ECT - here off medications she has similar complaints to when she was admitted back in July at this time will need labs, BHN consult, medical clearance. Lab Data Result diagrams: 07/26/21 13:50 07/26/21 13:50 Labs: Lab Results 07/26/21 07/26/21 07/26/21 Range/Units 13:50 13:50 13:50 WBC 8.5 (4.8-10.8) X10*3/uL RBC 5.00 (4.20-5.50) X10*6/uL Hgb 16.0 (12.0-16.0) g/dl Hct 47.7 H (37.0-47.0) % MCV 95.4 (80.0-98.0) fL MCH 32.0 (27.0-33.0) pg MCHC 33.5 (31.0-35.0) g/dl RDW 13.2 (11.0-16.0) % Plt Count 251 (160-400) X10*3/uL MPV 11.1 (9.4-12.3) fL Immature Gran % (Auto) 0.2 (0.0-0.4) % Neut % (Auto) 76.6 H (45-73) % Lymph % (Auto) 15.7 L (20-40) % [place] % (Auto) 5.0 (2-11) % Eos % (Auto) 1.1 (0-4) % Baso % (Auto) 1.4 (0-2) % Lymph # (Auto) 1.3 (1.2-4.9) X10*3/uL [place] # (Auto) 0.4 (0.1-1.2) X10*3/uL Eos # (Auto) 0.1 (0.0-0.4) X10*3/uL Baso # (Auto) 0.1 (0.0-0.2) X10*3/uL Abs Immat Gran (auto) 0.02 (0.00-0.03) X10*3/uL Absolute Neuts (auto) 6.5 (2.0-8.3) x10*3/uL Absolute Nucleated RBC 0.000 (0.0-0.012) X10*3/uL Nucleated RBC % (auto) 0.0 (0.0-0.2) /100WBC Sodium 141 (135-145) mmol/L Potassium 4.5 (3.3-5.1) mmol/L Chloride 105 (96-108) mmol/L Carbon Dioxide 28 (22-29) mmol/L Anion Gap 13 (12-20) BUN 9 (9-16) mg/dL Creatinine 0.86 (0.5-1.4) mg/dL Estim Creat Clear Calc 51.5 Estimated GFR > 60 Random Glucose 113 (60-115) mg/dL Calcium 10.3 H (8.4-10.2) mg/dL Magnesium 2.3 (1.6-2.6) mg/dL Total Bilirubin 0.7 (0.0-1.0) mg/dL Direct Bilirubin 0.2 (0.0-0.5) mg/dL AST 12 (5-31) U/L ALT 8 (0-31) U/L Alkaline Phosphatase 59 D (39-117) U/L Total Creatine Kinase 57 (26-140) U/L Total Protein 7.8 (6.5-8.0) g/dL Albumin 4.9 (3.5-5.0) g/dL Lipase 19 (8-78) U/L TSH 1.16 (0.32-4.0) uIU/mL Ethyl Alcohol mg/dL COVID-19 (JANICE) (Negative) COVID-19 Clin Com 07/26/21 07/26/21 Range/Units 13:50 13:50 WBC (4.8-10.8) X10*3/uL RBC (4.20-5.50) X10*6/uL Hgb (12.0-16.0) g/dl Hct (37.0-47.0) % MCV (80.0-98.0) fL MCH (27.0-33.0) pg MCHC (31.0-35.0) g/dl RDW (11.0-16.0) % Plt Count (160-400) X10*3/uL MPV (9.4-12.3) fL Immature Gran % (Auto) (0.0-0.4) % Neut % (Auto) (45-73) % Lymph % (Auto) (20-40) % [place] % (Auto) (2-11) % Eos % (Auto) (0-4) % Baso % (Auto) (0-2) % Lymph # (Auto) (1.2-4.9) X10*3/uL [place] # (Auto) (0.1-1.2) X10*3/uL Eos # (Auto) (0.0-0.4) X10*3/uL Baso # (Auto) (0.0-0.2) X10*3/uL Abs Immat Gran (auto) (0.00-0.03) X10*3/uL Absolute Neuts (auto) (2.0-8.3) x10*3/uL Absolute Nucleated RBC (0.0-0.012) X10*3/uL Nucleated RBC % (auto) (0.0-0.2) /100WBC Sodium (135-145) mmol/L Potassium (3.3-5.1) mmol/L Chloride (96-108) mmol/L Carbon Dioxide (22-29) mmol/L Anion Gap (12-20) BUN (9-16) mg/dL Creatinine (0.5-1.4) mg/dL Estim Creat Clear Calc Estimated GFR Random Glucose (60-115) mg/dL Calcium (8.4-10.2) mg/dL Magnesium (1.6-2.6) mg/dL Total Bilirubin (0.0-1.0) mg/dL Direct Bilirubin (0.0-0.5) mg/dL AST (5-31) U/L ALT (0-31) U/L Alkaline Phosphatase (39-117) U/L Total Creatine Kinase (26-140) U/L Total Protein (6.5-8.0) g/dL Albumin (3.5-5.0) g/dL Lipase (8-78) U/L TSH (0.32-4.0) uIU/mL Ethyl Alcohol < 10 mg/dL COVID-19 (JANICE) Negative (Negative) COVID-19 Clin Com See Note ECG Data Attestation: I personally reviewed and interpreted this ECG as follows: ECG interpretation date: 07/26/21 ECG interpretation time: 13:31 Interpretation: Rate: 95 Rhythm: NSR [place]: normal Normal P waves. Normal TYRONE. Normal QRS complex. ST T wave : normal no ESPINOZA qTC: normal prior studies: no acute ischemia The study has been interpreted contemporaneously by me. . Discharge Plan Discharge Clinical Impression: Acute psychosis Depression Qualifiers: Depression Type: unspecified Qualified Code(s): F32.A - Depression, unspecified Patient Disposition: Admitted As Inpatient
--- NOTE | 2021-07-26 12:59 | PHA.MEDREC ---
Pharmacy Consult ? Medication Reconciliation Pharmacy has completed the medication reconciliation. Spoke with the patients who stated the patient hasn't taken any medications since she was admitted to [facility] about 3 years ago.She refused all of her medications while she was there including hiding the medication under her tongue and spitting them out. The states she will sometimes take Tylenol or aspirin if she has a headache and gas-x from time to time. Other than that, the patient takes no prescribed medications at this time. Liliam Domínguez, PharmD
[2021-07-26 13:59] LABS: MANUAL DIFF FLAG NO
[2021-07-26 14:02] LABS: Basophils Absolute Auto 0.1 X10*3/uL (0.0-0.2); Basophils Percent Auto 1.4 % (0-2); Eosinophils Absolute Auto 0.1 X10*3/uL (0.0-0.4); Eosinophils Percent Auto 1.1 % (0-4); Hematocrit 47.7 % (37.0-47.0); Imm Gran Abs Auto 0.02 X10*3/uL (0.00-0.03); Imm Gran Pct Auto 0.2 % (0.0-0.4); Lymphocytes Absolute Auto 1.3 X10*3/uL (1.2-4.9); Lymphocytes Percent Auto 15.7 % (20-40); Mean Corpuscular HGB Conc 33.5 g/dl (31.0-35.0); Mean Corpuscular Volume 95.4 fL (80.0-98.0); Mean Platelet Volume 11.1 fL (9.4-12.3); Monocytes Absolute Auto 0.4 X10*3/uL (0.1-1.2); Neutrophils Absolute Auto 6.5 x10*3/uL (2.0-8.3); Neutrophils Percent Auto 76.6 % (45-73); Platelet Count 251 X10*3/uL (160-400); Red Cell Distribution Width 13.2 % (11.0-16.0); White Blood Count 8.5 X10*3/uL (4.8-10.8)
[2021-07-26 14:14] LABS: Ethanol < 10 mg/dL
[2021-07-26 14:16] LABS: Alanine Aminotransferase 8 U/L (0-31); Albumin Level 4.9 g/dL (3.5-5.0); Alkaline Phosphatase 59 U/L (39-117); Anion Gap 13 (12-20); Aspartate Amino Transferase 12 U/L (5-31); Bilirubin Direct 0.2 mg/dL (0.0-0.5); Bilirubin Total 0.7 mg/dL (0.0-1.0); Blood Urea Nitrogen 9 mg/dL (9-16); Calcium 10.3 mg/dL (8.4-10.2); Carbon Dioxide 28 mmol/L (22-29); Chloride 105 mmol/L (96-108); Creatinine Clr Calc Pharmacy 51.5; Estimated Glomerular Filt Rate > 60; Glucose Random 113 mg/dL (60-115); Lipase 19 U/L (8-78); Magnesium 2.3 mg/dL (1.6-2.6); Potassium 4.5 mmol/L (3.3-5.1); Sodium 141 mmol/L (135-145); Total Protein 7.8 g/dL (6.5-8.0)
[2021-07-26 14:18] LABS: COVID-19 Test Negative (Negative)
[2021-07-26 14:36] LABS: TSH reflex Free T4 1.16 uIU/mL (0.32-4.0)
[2021-07-26] MEDS: LORazepam 0.5 MG TABLET PO (15:59)
[2021-07-26] MEDS: Acetaminophen 325 MG TABLET 650 MG PO (15:59)
--- NOTE | 2021-07-26 20:47 | P.HPPS_ITS ---
HPI Date of Service: 07/26/21 Chief Complaint: Acute psychosis Sources of Information: patient interviewed, chart reviewed and crisis/core team assessment reviewed HPI Subjective Notes: Guevara Warning, Conditional Voluntary and 3 Day Healthcare Proxy: No Guardianship: No Medical Problems Affecting Mental Status: No Narrative: Pt is a 65 y.o. Female who presented to [facility] ED on 07/26/21 due to somatic delusions, found naked, reported her arms are not attached and her chest is missing, she has no blood in her neck or head. Pt is known to [facility], last IPLOC in 2019 and 2015. She presented with similar complaints, carries dx of severe somatic delusional disorder that only responded to ECT, hx of non-adherence to PO medications in OP setting and has poor insight. I evaluated the pt this evening and upon interview she reports she is ?in severe pain,? complains of abdominal pain, feels like ?twisting, its like coils.? Says ?it all started in March? when she hit her L leg with the metal part of a hose, shows me hematoma on L caldera, now says ?something is blocking the blood flow? and ?I?m trying to do anything to get this circulation.? Reports sleep is poor due to ?im in so much pain.?? Pt insists ?I?m not crazy? and that she needs a medical workup, states ?I dont need medication. My needs medication.? She presents with tangential thoughts, loose associations, and is anxious throughout interview. Says ?I just dont want to be here, im afraid.? She is adamant that she will not take a psychiatric medication and has signed a 3 day notice. Discussed hx of IPLOC and ECT, however pt states she will refuse ECT. She is illogical and not able to rationlize about treatment decisions, as she states ECT ?ripped out four of my crowns.? She denies SI/SIB/HI upon inquiry and states she feels safe on the unit.? Past Psychiatric History: -Recent IPLOC on [facility] in 06/2020 due to somatic delusions, stated she cannot feel her body from the neck down, her neck is bent, cannot walk although she is walking around the room. Given 3 courses of ECT, signed 3 day notice and agreed to continue ECT in OP setting, refused PO medications and continued to have poor insight. -Per chart, in 2015 pt presented to [facility] reporting having pain in L thigh, which kept on growing into the stomach, had strange sensensation of twisting in intestine and stomach, as well as hips. She stopped eating, lost 15 lb, decompensted to the point of ambulating in wheelchair. GI workup was negative (saw Dr. Olivera, had colonoscopy, endoscopy, multiple CT scans with contrast, lab work, MRI), also seen by hematology-oncology. No anatomical or physiological explanation found per medical work up. Diagnosed with somatoform disorder and psychotic depression. -She has a hx of multiple past psych admissions since 2014 ([place] in 2014, [facility] 2015), but has hx of being non-adherent with meds as she does not think she is psychotic, convinced she is physically ill. -Hx of ECT at [facility] in 06/2016 (received 6 bifrontal ECTs with remarkable results, had improvement after first treatment). -Hx of OP tx at [facility] Past med trials: zyprexa 10 mg, ativan 0.6 mg BID PRN, trazodone, hydroxyzine, abilify 4 mg, remeron 15 mg, Zydis (given 06/2020 during last IPLOC on [facility]). Medical Evaluation Reviewed: Yes [facility] Medical History Acute anxiety Depression IBS (irritable bowel syndrome) Severe recurrent major depression with psychotic features Somatic delusion Narrative: -GERD, IBS, hx of restricting to the point of requiring hospitalization for failure to thrive due to somatic complaints/ somatoform disorder.? Surgical History H/O colonoscopy Family History: non contributory Social History: -Lives with , has 2 adult children. 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 Substance History: -Denies alcohol or substance use Trauma History: none known Diagnostics Vital Signs (24Hr): Vital Signs - 24 hr 07/26/21 12:22 Temperature 98.3 F Pulse Rate 105 H Respiratory Rate 20 Blood Pressure 173/74 H Pulse Oximetry 99 Body Mass Index 21.9 Labs Results: 07/26/21 13:50 07/26/21 13:50 Labs: Laboratory Results - last 48 hr 07/26/21 07/26/21 07/26/21 13:50 13:50 13:50 WBC 8.5 RBC 5.00 Hgb 16.0 Hct 47.7 H MCV 95.4 MCH 32.0 MCHC 33.5 RDW 13.2 Plt Count 251 MPV 11.1 Immature Gran % (Auto) 0.2 Neut % (Auto) 76.6 H Lymph % (Auto) 15.7 L [place] % (Auto) 5.0 Eos % (Auto) 1.1 Baso % (Auto) 1.4 Lymph # (Auto) 1.3 [place] # (Auto) 0.4 Eos # (Auto) 0.1 Baso # (Auto) 0.1 Abs Immat Gran (auto) 0.02 Absolute Neuts (auto) 6.5 Absolute Nucleated RBC 0.000 Nucleated RBC % (auto) 0.0 Sodium 141 Potassium 4.5 Chloride 105 Carbon Dioxide 28 Anion Gap 13 BUN 9 Creatinine 0.86 Estim Creat Clear Calc 51.5 Estimated GFR > 60 Random Glucose 113 Calcium 10.3 H Magnesium 2.3 Total Bilirubin 0.7 Direct Bilirubin 0.2 AST 12 ALT 8 Alkaline Phosphatase 59 D Total Creatine Kinase 57 Total Protein 7.8 Albumin 4.9 Lipase 19 TSH 1.16 Ethyl Alcohol COVID-19 (JANICE) COVID-19 Clin Com 07/26/21 07/26/21 13:50 13:50 WBC RBC Hgb Hct MCV MCH MCHC RDW Plt Count MPV Immature Gran % (Auto) Neut % (Auto) Lymph % (Auto) [place] % (Auto) Eos % (Auto) Baso % (Auto) Lymph # (Auto) [place] # (Auto) Eos # (Auto) Baso # (Auto) Abs Immat Gran (auto) Absolute Neuts (auto) Absolute Nucleated RBC Nucleated RBC % (auto) Sodium Potassium Chloride Carbon Dioxide Anion Gap BUN Creatinine Estim Creat Clear Calc Estimated GFR Random Glucose Calcium Magnesium Total Bilirubin Direct Bilirubin AST ALT Alkaline Phosphatase Total Creatine Kinase Total Protein Albumin Lipase TSH Ethyl Alcohol < 10 COVID-19 (JANICE) Negative COVID-19 Clin Com See Note Imaging Radiology Impressions: ITS Impressions Chest X-Ray 07/26/21 12:28 IMPRESSION: Clear lungs. Normal bowel gas pattern. KUB X-Ray 07/26/21 12:28 IMPRESSION: Clear lungs. Normal bowel gas pattern. Meds/Allergies Meds Home Medications Acetaminophen (Acetaminophen 325 Mg Tablet) 650 mg PO Q6H PRN PRN Reason: Headache/Pain Mild Scale (1-3) Al Hydroxide/Mg Hydroxide (Magnesium Hydrox/Alum Hydrox 30 Ml Oral.Susp) 30 ml PO Q6H PRN PRN Reason: Heartburn/Nausea Hydroxyzine HCl (Hydroxyzine Hcl 25 Mg Tablet) 25 mg PO BEDTIME PRN PRN Reason: Anxiety Magnesium Hydroxide (Milk Of Magnesia 30 Ml Oral.Susp) 30 ml PO DAILY PRN PRN Reason: Constipation Nicotine (Nicotine 21 Mg Patch.Td24) 21 mg TRANSDERMA DAILY RAVINDER Trazodone HCl (Trazodone Hcl 50 Mg Tablet) 50 mg PO BEDTIME PRN PRN Reason: Insomnia Allergies Allergies Allergy/AdvReac Type Severity Reaction Status Date / Time silver Allergy Mild rash Verified 02/05/21 13:40 [From TEGADERM AG MESH] penicillin V Allergy Unknown anaphylaxis Verified 02/05/21 13:40 Penicillins [PENICILLINS] Allergy Unknown UNKNOWN Verified 02/05/21 13:40 Clindamycin HCl Allergy Unknown diarrhea Uncoded 02/05/21 13:40 Mental Status Exam Mental Status Exam Narrative: A&O except to situation. Pt appears older than stated age, petite, sitting up in hospital attire, not malodorous. Good eye contact, inattentive. No Tics or Tremors. No abnormal involuntary movements. Agitated, difficult to engage in meaningful conversation. Speech is somewhat pressured, spontaneous with increased rate and rhythm, normal volume and prosody. No prolonged speech latency or dysarthria. Mood is ?worried,? affect is anxious. Denies SI/SIB/HI upon inquiry. Denies A/VH. Presents with fixed somatic delusional thought content, poor reality testing. Thoughts are tangential, illogical, loose associations. No known cognitive or memory impairment. Insight/ Judgment poor. Assessment & Plan Assessment & Plan (1) Somatic symptom disorder, severe: Status: Acute Code(s): F45.1 - Undifferentiated somatoform disorder (2) Severe recurrent major depressive disorder with psychotic features: Status: Acute Code(s): F33.3 - Major depressive disorder, recurrent, severe with psychotic symptoms Assessment and Plan: Pt is a 65 y.o. Female who presented to [facility] ED on 07/26/21 due to somatic delusions, known to [facility], last IPLOC in 2019 and 2015, responded to ECT, hx of non-adherence to PO medications in OP setting and has poor insight. Plan: Pt is refusing medication at this time but she is amenable to taking PO benadryl for sleep. Will order benadryl 50 mg QHS for tonight and ativan 0.5 mg QHS PRN for tonight to address anxiety. Will defer to primary team for med management. Pt would likely benefit from another course of ECT. Signed 3 day notice 07/26/21 On Q15 min safety checks Monitor response to medications. Monitor for safety in the milieu. Discharge on stabilization. Patient seen. Chart reviewed. Discussed with team. Obtain collateral contact info?as needed Reason for continued inpatient stay Substantial Risk for: inability to function, rapid decompensation and med/psych decompensation
[2021-07-26] MEDS: diphenhydrAMINE HCL 25 MG TABLET 50 MG PO (21:45)
--- NOTE | 2021-07-27 | PC.ADMIT ---
patient admitted this evening via wheelchair to room 178. patient went to ER with c/o abdominal pain and pain from head to toe. patient points to her hands and says all her veins in her hands are abnormal. Patient has high anxiety because she feels she does not need a psychiatric admission and that her spouse never believes her about her chronic pain. Per patient spouse also limits her food intake and always says there is nothing wrong with you . Patient cooperated with admission and signed consents and also signed a three day notice. Patient perseverates about her constant all body pain issues and that no one will listen to her this is a ongoing chronic complaint and her spouse tells her you have had the $80,000 dollar work up and there is nothing wrong with you . Patient is very anxious and easily distracted. Patient has no family support system and does see her counselor often.
[2021-07-27 08:00] VITALS: BP 106/60; PULSE 88; RESP 16; TEMP 36; O2SAT 97
[2021-07-27 08:56] VITALS: BP 106/60; PULSE 88; TEMP 36; O2SAT 97
[2021-07-27] MEDS: Nicotine 21 MG PATCH.TD24 TRANSDERMA (09:37)
[2021-07-27] MEDS: Acetaminophen 325 MG TABLET 650 MG PO (09:42)
--- NOTE | 2021-07-27 11:30 | P.PNPSI_ITS ---
Subjective Subjective Date of Service: 07/27/21 Reason For Visit: Acute psychosis Subjective Notes: Conditional Voluntary and 3 Day Interim History: The nursing staff reported that the patient sign a CV and immediately she signed a 3 day notice. On interview, the patient complains of several somatic symptoms such as pain, paresthesias and other symptoms but she a damantly denies suicidal or homicidal ideation. She has history of being admitted before for delusional disorder. She wanted to have a medical workup out to rule out any major problems. On interview, the patient denies safety concerns but she complains of several somatic symptoms and she denies having a psychiatric condition. She stated that she had ECT in the past but she is not interested on that procedure at this moment. Mental Status Exam Mental Status Exam Patient Appearance: Well Grooomed Patient Orientation: Person and Situation Level of Consciousness: Awake and Appropriate Patient Behavior: Guarded and Cooperative Mood Description: Depressed Affect Description: Constricted Patient Cognition Impaired: No Ability to Follow Directions: Good Speech Pattern: Appropriate and Coherent Hallucinations: Tactile Delusions: Not Present Thought Process: Linear Thought Content: positive for Circumstantial, positive for Evasive and positive for Hypochondriasis Depressive Symptoms: Crying Spells Judgement: Fair Diagnostics Vital Signs (24Hr): Vital Signs - 24 hr 07/26/21 12:22 07/27/21 08:00 07/27/21 08:56 Temperature 98.3 F 96.8 F 96.8 F Pulse Rate 105 H 88 88 Respiratory Rate 20 16 Blood Pressure 173/74 H 106/60 106/60 Pulse Oximetry 99 97 97 Body Mass Index 21.9 Labs Results: 07/26/21 13:50 07/26/21 13:50 Labs: Laboratory Results - last 48 hr 07/26/21 07/26/21 07/26/21 13:50 13:50 13:50 WBC 8.5 RBC 5.00 Hgb 16.0 Hct 47.7 H MCV 95.4 MCH 32.0 MCHC 33.5 RDW 13.2 Plt Count 251 MPV 11.1 Immature Gran % (Auto) 0.2 Neut % (Auto) 76.6 H Lymph % (Auto) 15.7 L [place] % (Auto) 5.0 Eos % (Auto) 1.1 Baso % (Auto) 1.4 Lymph # (Auto) 1.3 [place] # (Auto) 0.4 Eos # (Auto) 0.1 Baso # (Auto) 0.1 Abs Immat Gran (auto) 0.02 Absolute Neuts (auto) 6.5 Absolute Nucleated RBC 0.000 Nucleated RBC % (auto) 0.0 Sodium 141 Potassium 4.5 Chloride 105 Carbon Dioxide 28 Anion Gap 13 BUN 9 Creatinine 0.86 Estim Creat Clear Calc 51.5 Estimated GFR > 60 Random Glucose 113 Calcium 10.3 H Magnesium 2.3 Total Bilirubin 0.7 Direct Bilirubin 0.2 AST 12 ALT 8 Alkaline Phosphatase 59 D Total Creatine Kinase 57 Total Protein 7.8 Albumin 4.9 Lipase 19 TSH 1.16 Ethyl Alcohol COVID-19 (JANICE) COVID-19 [employer] 1 Com 07/26/21 07/26/21 13:50 13:50 WBC RBC Hgb Hct MCV MCH MCHC RDW Plt Count MPV Immature Gran % (Auto) Neut % (Auto) Lymph % (Auto) [place] % (Auto) Eos % (Auto) Baso % (Auto) Lymph # (Auto) [place] # (Auto) Eos # (Auto) Baso # (Auto) Abs Immat Gran (auto) Absolute Neuts (auto) Absolute Nucleated RBC Nucleated RBC % (auto) Sodium Potassium Chloride Carbon Dioxide Anion Gap BUN Creatinine Estim Creat Clear Calc Estimated GFR Random Glucose Calcium Magnesium Total Bilirubin Direct Bilirubin AST ALT Alkaline Phosphatase Total Creatine Kinase Total Protein Albumin Lipase TSH Ethyl Alcohol < 10 COVID-19 (JANICE) Negative COVID-19 Clin Com See Note Imaging Radiology Impressions: ITS Impressions Chest X-Ray 07/26/21 12:28 IMPRESSION: Clear lungs. Normal bowel gas pattern. KUB X-Ray 07/26/21 12:28 IMPRESSION: Clear lungs. Normal bowel gas pattern. Medications Medications Current Medications Acetaminophen (Acetaminophen 325 Mg Tablet) 650 mg PO Q6H PRN PRN Reason: Headache/Pain Mild Scale (1-3) Last Admin: 07/27/21 09:42 Dose: 650 mg Documented by: Al Hydroxide/Mg Hydroxide (Magnesium Hydrox/Alum Hydrox 30 Ml Oral.Susp) 30 ml PO Q6H PRN PRN Reason: Heartburn/Nausea Hydroxyzine HCl (Hydroxyzine Hcl 25 Mg Tablet) 25 mg PO BEDTIME PRN PRN Reason: Anxiety Magnesium Hydroxide (Milk Of Magnesia 30 Ml Oral.Susp) 30 ml PO DAILY PRN PRN Reason: Constipation Nicotine (Nicotine 21 Mg Patch.Td24) 21 mg TRANSDERMA DAILY RAVINDER Last Admin: 07/27/21 09:37 Dose: 21 mg Documented by: Trazodone HCl (Trazodone Hcl 50 Mg Tablet) 50 mg PO BEDTIME PRN PRN Reason: Insomnia Allergies Allergies Allergy/AdvReac Type Severity Reaction Status Date / Time silver Allergy Mild rash Verified 02/05/21 13:40 [From [employer] AG MESH] penicillin V Allergy Unknown anaphylaxis Verified 02/05/21 13:40 Penicillins [PENICILLINS] Allergy Unknown UNKNOWN Verified 02/05/21 13:40 Clindamycin HCl Allergy Unknown diarrhea Uncoded 02/05/21 13:40 Assessment & Plan Assessment & Plan (1) Somatic symptom disorder, severe: Status: Acute Code(s): F45.1 - Undifferentiated somatoform disorder (2) Severe recurrent major depressive disorder with psychotic features: Status: Acute Code(s): F33.3 - Major depressive disorder, recurrent, severe with psychotic symptoms Assessment and Plan: Pt is a 65 y.o. Female who presented to [facility] ED on 07/26/21 due to somatic delusions, known to M5, last IPLOC in 2019 and 2015, responded to ECT, hx of non-adherence to PO medications in OP setting and has poor insight. Plan: Pt is refusing medication at this time but she is amenable to taking PO benadryl for sleep. Will order benadryl 50 mg QHS for tonight and ativan 0.5 mg QHS PRN for tonight to address anxiety. Will defer to primary team for med management. Pt would likely benefit from another course of ECT. Signed 3 day notice 07/26/21 On Q15 min safety checks Monitor response to medications. Monitor for safety in the milieu. Discharge on stabilization. Patient seen. Chart reviewed. Discussed with team. Obtain collateral contact info?as needed I spent minutes with the patient and/or on the patient floor today, greater than?50% of which was spent counseling/coordinating care. Reason for contiued inpatient stay Substantial Risk for: inability to function, rapid decompensation and med/psych decompensation
[2021-07-27 17:09] LABS: Appearance Urine CLEAR; Color Urine YELLOW; Glucose Urine UA NEG (NEG); Leukocyte Esterase Urine 1+ (NEG); Nitrite Urine NEG (NEG); PH 6.5 (5.0-8.0); UACC Culture Trigger YES; Urine Blood NEG (NEG); Urine Ketones NEG (NEG); Urine Protein NEG (NEG-TRACE)
[2021-07-27 17:28] LABS: Amphetamine Screen Urine Not Detected (Not Detect); Barbiturates, Urine Not Detected (Not Detect); Benzodiazepines Screen Urine Not Detected (Not Detect); Cannabinoid Screen Urine Not Detected (Not Detect); Cocaine Screen Urine Not Detected (Not Detect); Fentanyl, urine Not Detected (Not Detect); Opiate Screen Urine Not Detected (Not Detect); Phencyclidine Screen Urine Not Detected (Not Detect)
[2021-07-27 17:37] LABS: Amorphous Sediment Urine 1+ /LPF; Bacteria Urine TRACE /LPF; RBC Urine 0-2 /HPF (0); Squamous Epithelial Cell Urine TRACE /LPF
[2021-07-27 18:00] VITALS: BP 128/61; PULSE 72; RESP 18; TEMP 36.6; O2SAT 99
[2021-07-28 06:00] VITALS: BP 126/73; PULSE 66; RESP 15; TEMP 36.5; O2SAT 100
--- NOTE | 2021-07-28 08:27 | P.PNPSI_ITS ---
Subjective Subjective Date of Service: 07/28/21 Reason For Visit: Acute psychosis Subjective Notes: Conditional Voluntary and 3 Day Interim History: The nursing staff reported that she complained of generalized pain and other somatic complaints such as been pulled and twitching . At 4:30 am, she was found by staff,, naked on her bathroom due to parestesias and other somatic complaints. On interview, she reported pain and other somatic complaints that sounds very delusional but also, it seems that she could have a chronic pain disorder such as fibromyalgia or chronic fatigue syndrome. No safety concerns, denies suicidal or homicidal thoughts. Agreed to try Gabapentin. Mental Status Exam Mental Status Exam Patient Appearance: Well Grooomed Patient Orientation: Person, Place and Situation Level of Consciousness: Awake Patient Behavior: Appropriate and Passive Mood Description: Depressed Affect Description: Constricted Patient Cognition Impaired: No Ability to Follow Directions: Good Speech Pattern: Clear Hallucinations: Tactile Delusions: Bizarre (somatic?) Thought Process: Distracted and Evasive Thought Content: positive for Circumstantial, positive for Perseveration and positive for Tangential Judgement: Poor Diagnostics Vital Signs (24Hr): Vital Signs - 24 hr 07/27/21 18:00 Temperature 97.8 F Pulse Rate 72 Respiratory Rate 18 Blood Pressure 128/61 Pulse Oximetry 99 Body Mass Index 21.9 Labs Results: 07/26/21 13:50 07/26/21 13:50 Labs: Laboratory Results - last 48 hr 07/26/21 07/26/21 07/26/21 13:50 13:50 13:50 WBC 8.5 RBC 5.00 Hgb 16.0 Hct 47.7 H MCV 95.4 MCH 32.0 MCHC 33.5 RDW 13.2 Plt Count 251 MPV 11.1 Immature Gran % (Auto) 0.2 Neut % (Auto) 76.6 H Lymph % (Auto) 15.7 L [place] % (Auto) 5.0 Eos % (Auto) 1.1 Baso % (Auto) 1.4 Lymph # (Auto) 1.3 [place] # (Auto) 0.4 Eos # (Auto) 0.1 Baso # (Auto) 0.1 Abs Immat Gran (auto) 0.02 Absolute Neuts (auto) 6.5 Absolute Nucleated RBC 0.000 Nucleated RBC % (auto) 0.0 Sodium 141 Potassium 4.5 Chloride 105 Carbon Dioxide 28 Anion Gap 13 BUN 9 Creatinine 0.86 Estim Creat Clear Calc 51.5 Estimated GFR > 60 Random Glucose 113 Calcium 10.3 H Magnesium 2.3 Total Bilirubin 0.7 Direct Bilirubin 0.2 AST 12 ALT 8 Alkaline Phosphatase 59 D Total Creatine Kinase 57 Total Protein 7.8 Albumin 4.9 Lipase 19 TSH 1.16 Urine Color Urine Appearance Urine pH Ur Specific [place] Urine Protein Urine Glucose (UA) Urine Ketones Urine Blood Urine Nitrite Ur Leukocyte Esterase Urine RBC Urine WBC Ur Squamous Epith Cells Amorphous Sediment Urine Bacteria Urine Opiates Screen Urine Fentanyl Screen Ur Barbiturates Screen Ur Phencyclidine Scrn Ur Amphetamines Screen U Benzodiazepines Scrn Urine Cocaine Screen U Marijuana (THC) Screen Ethyl Alcohol COVID-19 (JANICE) COVID-19 [employer] Com 07/26/21 07/26/21 07/27/21 13:50 13:50 16:00 WBC RBC Hgb Hct MCV MCH MCHC RDW Plt Count MPV Immature Gran % (Auto) Neut % (Auto) Lymph % (Auto) [place] % (Auto) Eos % (Auto) Baso % (Auto) Lymph # (Auto) [place] # (Auto) Eos # (Auto) Baso # (Auto) Abs Immat Gran (auto) Absolute Neuts (auto) Absolute Nucleated RBC Nucleated RBC % (auto) Sodium Potassium Chloride Carbon Dioxide Anion Gap BUN Creatinine Estim Creat Clear Calc Estimated GFR Random Glucose Calcium Magnesium Total Bilirubin Direct Bilirubin AST ALT Alkaline Phosphatase Total Creatine Kinase Total Protein Albumin Lipase TSH Urine Color Urine Appearance Urine pH Ur Specific [place] Urine Protein Urine Glucose (UA) Urine Ketones Urine Blood Urine Nitrite Ur Leukocyte Esterase Urine RBC Urine WBC Ur Squamous Epith Cells Amorphous Sediment Urine Bacteria Urine Opiates Screen Not Detected Urine Fentanyl Screen Not Detected Ur Barbiturates Screen Not Detected Ur Phencyclidine Scrn Not Detected Ur Amphetamines Screen Not Detected U Benzodiazepines Scrn Not Detected Urine Cocaine Screen Not Detected U Marijuana (THC) Screen Not Detected Ethyl Alcohol < 10 COVID-19 (JANICE) Negative COVID-19 [employer] See Note 07/27/21 16:00 WBC RBC Hgb Hct MCV MCH MCHC RDW Plt Count MPV Immature Gran % (Auto) Neut % (Auto) Lymph % (Auto) [place] % (Auto) Eos % (Auto) Baso % (Auto) Lymph # (Auto) [place] # (Auto) Eos # (Auto) Baso # (Auto) Abs Immat Gran (auto) Absolute Neuts (auto) Absolute Nucleated RBC Nucleated RBC % (auto) Sodium Potassium Chloride Carbon Dioxide Anion Gap BUN Creatinine Estim Creat Clear Calc Estimated GFR Random Glucose Calcium Magnesium Total Bilirubin Direct Bilirubin AST ALT Alkaline Phosphatase Total Creatine Kinase Total Protein Albumin Lipase TSH Urine Color YELLOW Urine Appearance CLEAR Urine pH 6.5 Ur Specific [place] 1.010 Urine Protein NEG Urine Glucose (UA) NEG Urine Ketones NEG Urine Blood NEG Urine Nitrite NEG Ur Leukocyte Esterase 1+ H Urine RBC 0-2 Urine WBC 1-4 Ur Squamous Epith Cells TRACE Amorphous [place] 1+ Urine Bacteria TRACE Urine Opiates Screen Urine Fentanyl Screen Ur Barbiturates Screen Ur Phencyclidine Scrn Ur Amphetamines Screen U Benzodiazepines Scrn Urine Cocaine Screen U Marijuana (THC) Screen Ethyl Alcohol COVID-19 (JANICE) COVID-19 Clin Com Imaging Radiology Impressions: ITS Impressions Chest X-Ray 07/26/21 12:28 IMPRESSION: Clear lungs. Normal bowel gas pattern. KUB X-Ray 07/26/21 12:28 IMPRESSION: Clear lungs. Normal bowel gas pattern. Medications Medications Current Medications Acetaminophen (Acetaminophen 325 Mg Tablet) 650 mg PO Q6H PRN PRN Reason: Headache/Pain Mild Scale (1-3) Last Admin: 07/27/21 09:42 Dose: 650 mg Documented by: Al Hydroxide/Mg Hydroxide (Magnesium Hydrox/Alum Hydrox 30 Ml Oral.Susp) 30 ml PO Q6H PRN PRN Reason: Heartburn/Nausea Hydroxyzine HCl (Hydroxyzine Hcl 25 Mg Tablet) 25 mg PO BEDTIME PRN PRN Reason: Anxiety Magnesium Hydroxide (Milk Of Magnesia 30 Ml Oral.Susp) 30 ml PO DAILY PRN PRN Reason: Constipation Nicotine (Nicotine 21 Mg Patch.Td24) 21 mg TRANSDERMA DAILY RAVINDER Last Admin: 07/27/21 09:37 Dose: 21 mg Documented by: Trazodone HCl (Trazodone Hcl 50 Mg Tablet) 50 mg PO BEDTIME PRN PRN Reason: Insomnia Allergies Allergies Allergy/AdvReac Type Severity Reaction Status Date / Time silver Allergy Mild rash Verified 02/05/21 13:40 [From TEGADERM AG MESH] penicillin V Allergy Unknown anaphylaxis Verified 02/05/21 13:40 Penicillins [PENICILLINS] Allergy Unknown UNKNOWN Verified 02/05/21 13:40 Clindamycin HCl Allergy Unknown diarrhea Uncoded 02/05/21 13:40 Assessment & Plan Assessment & Plan (1) Somatic symptom disorder, severe: Status: Acute Code(s): F45.1 - Undifferentiated somatoform disorder (2) Severe recurrent major depressive disorder with psychotic features: Status: Acute Code(s): F33.3 - Major depressive disorder, recurrent, severe with psychotic symptoms Assessment and Plan: Pt is a 65 y.o. Female who presented to [facility] on 07/26/21 due to somatic delusions, known to M5, last IPLOC in 2019 and 2015, responded to ECT, hx of non-adherence to PO medications in OP setting and has poor insight. Plan: Pt is refusing medication at this time but she is amenable to taking PO benadryl for sleep. Will order benadryl 50 mg QHS for tonight and ativan 0.5 mg QHS PRN for tonight to address anxiety. Will defer to primary team for med management. Pt would likely benefit from another course of ECT. 1. I will offer Gabapentin to target chronic pain and anxiety. 2. Gather collateral information. I spent minutes with the patient and/or on the patient floor today, greater than?50% of which was spent counseling/coordinating care. Reason for contiued inpatient stay Substantial Risk for: inability to function, rapid decompensation and med/psych decompensation
[2021-07-28] MEDS: Nicotine 21 MG PATCH.TD24 TRANSDERMA (11:00)
[2021-07-28] MEDS: Gabapentin 100 MG CAPSULE PO ×2 (16:46→20:08)
[2021-07-28 20:16] VITALS: BP 128/61; PULSE 71; RESP 16; TEMP 36.5; O2SAT 98
[2021-07-29 06:00] VITALS: BP 118/54; PULSE 114; O2SAT 99
[2021-07-29] MEDS: Nicotine 21 MG PATCH.TD24 TRANSDERMA (09:59)
[2021-07-29] MEDS: Gabapentin 100 MG CAPSULE PO ×3 (09:59→20:54)
--- NOTE | 2021-07-29 15:43 | P.PNPSI_ITS ---
Subjective Subjective Date of Service: 07/29/21 Reason For Visit: Acute psychosis Subjective Notes: 3 Day Interim History: The nursing staff reported the patient signed a 3 day notice lateral she had been common cooperative but she complained of bizarre symptoms such as ?tensions not having circulation by limbs, there falling off?. On interview, she complained of somatic delusions and chronic pain. She denies new symptoms with gabapentin Mental Status Exam Mental Status Exam Patient Appearance: Disheveled (Very thin) Patient Orientation: Person and Situation Level of Consciousness: Awake Patient Behavior: Guarded and Passive Mood Description: Depressed Affect Description: Constricted Patient Cognition Impaired: No Ability to Follow Directions: Fair Speech Pattern: Clear Hallucinations: None Delusions: Not Present Thought Process: Linear Thought Content: positive for Circumstantial Depressive Symptoms: Difficulty Sleeping Judgement: Fair Diagnostics Vital Signs (24Hr): Vital Signs - 24 hr 07/28/21 20:16 07/29/21 06:00 Temperature 97.7 F Pulse Rate 71 114 H Respiratory Rate 16 Blood Pressure 128/61 118/54 L Pulse Oximetry 98 99 Body Mass Index 21.9 Labs Results: 07/26/21 13:50 07/26/21 13:50 Labs: Laboratory Results - last 48 hr 07/27/21 07/27/21 16:00 16:00 Urine Color YELLOW Urine Appearance CLEAR Urine pH 6.5 Ur Specific [place] 1.010 Urine Protein NEG Urine Glucose (UA) NEG Urine Ketones NEG Urine Blood NEG Urine Nitrite NEG Ur Leukocyte Esterase 1+ H Urine RBC 0-2 Urine WBC 1-4 Ur Squamous Epith Cells TRACE Amorphous [place] 1+ Urine Bacteria TRACE Urine Opiates Screen Not Detected Urine Fentanyl Screen Not Detected Ur Barbiturates Screen Not Detected Ur Phencyclidine Scrn Not Detected Ur Amphetamines Screen Not Detected U Benzodiazepines Scrn Not Detected Urine Cocaine Screen Not Detected U Marijuana (THC) Screen Not Detected Imaging Radiology Impressions: ITS Impressions Chest X-Ray 07/26/21 12:28 IMPRESSION: Clear lungs. Normal bowel gas pattern. KUB X-Ray 07/26/21 12:28 IMPRESSION: Clear lungs. Normal bowel gas pattern. Medications Medications Current Medications Acetaminophen (Acetaminophen 325 Mg Tablet) 650 mg PO Q6H PRN PRN Reason: Headache/Pain Mild Scale (1-3) Last Admin: 07/27/21 09:42 Dose: 650 mg Documented by: Al Hydroxide/Mg Hydroxide (Magnesium Hydrox/Alum Hydrox 30 Ml Oral.Susp) 30 ml PO Q6H PRN PRN Reason: Heartburn/Nausea Gabapentin (Gabapentin 100 Mg Capsule) 100 mg PO TID [facility] Last Admin: 07/29/21 15:32 Dose: 100 mg Documented by: Hydroxyzine HCl (Hydroxyzine Hcl 25 Mg Tablet) 25 mg PO BEDTIME PRN PRN Reason: Anxiety Magnesium Hydroxide (Milk Of Magnesia 30 Ml Oral.Susp) 30 ml PO DAILY PRN PRN Reason: Constipation Nicotine (Nicotine 21 Mg Patch.Td24) 21 mg TRANSDERMA DAILY [facility] Last Admin: 07/29/21 09:59 Dose: 21 mg Documented by: Trazodone HCl (Trazodone Hcl 50 Mg Tablet) 50 mg PO BEDTIME PRN PRN Reason: Insomnia Allergies Allergies Allergy/AdvReac Type Severity Reaction Status Date / Time silver Allergy Mild rash Verified 02/05/21 13:40 [From [employer] AG MESH] penicillin V Allergy Unknown anaphylaxis Verified 02/05/21 13:40 Penicillins [PENICILLINS] Allergy Unknown UNKNOWN Verified 02/05/21 13:40 Clindamycin HCl Allergy Unknown diarrhea Uncoded 02/05/21 13:40 Assessment & Plan Assessment & Plan (1) Somatic symptom disorder, severe: Status: Acute Code(s): F45.1 - Undifferentiated somatoform disorder (2) Severe recurrent major depressive disorder with psychotic features: Status: Acute Code(s): F33.3 - Major depressive disorder, recurrent, severe with psychotic symptoms Assessment and Plan: Pt is a 65 y.o. Female who presented to [facility] on 07/26/21 due to somatic delusions, known to M5, last IPLOC in 2019 and 2015, responded to ECT, hx of non-adherence to PO medications in OP setting and has poor insight. Plan: Pt is refusing medication at this time but she is amenable to taking PO be nadryl for sleep. Will order benadryl 50 mg QHS for tonight and ativan 0.5 mg QHS PRN for tonight to address anxiety. Will defer to primary team for med management. Pt would likely benefit from another course of ECT. 1. I will offer Gabapentin to target chronic pain and anxiety. 2. Gather collateral information. I spent minutes with the patient and/or on the patient floor today, greater than?50% of which was spent counseling/coordinating care. Reason for contiued inpatient stay Substantial Risk for: inability to function, rapid decompensation and med/psych decompensation
--- NOTE | 2021-07-29 16:34 | MHC.CLN ---
Addendum entered by Anamaria Pathak, CONNIE 07/29/21 16:37: APPEARS THIN. REPORTED THAT HAS SOME DIFFICULTY CHEWING IN THAT SHE LOST 4 CROWNS DURING PRIOR ECT TREATMENT. DOES NOT WANT CHANGE TO DIET ORDER FOR SOFTER FOODS. STATED THAT SHE CAN SELECT SOFTER FOODS. Original Note: NUTRITION CONSULT PATIENT WITH SMALL HEALING ABRASION ON INNER HEEL. WOULD LIKE HIGH PROTEIN, LOWER CALORIE SUPPLEMENT. RD ADDING ENSURE MAX 330 ML BID, TO PROVIDE 300 KCAL, 60 GRAMS PROTEIN.
[2021-07-29 20:56] VITALS: BP 109/70; PULSE 76; RESP 16; TEMP 36.1; O2SAT 97
[2021-07-30 06:00] VITALS: BP 131/73; TEMP 36.3; O2SAT 99
--- NOTE | 2021-07-30 08:56 | PC.NURSE ---
Skin assessment completed. Patient has dry, peeling skin with pus filled blisters on medial right ankle. Cleansed with wound cleanser and pus removed. Triad applied and covered with foam dressing. No other skin issues noted at this time.
[2021-07-30] MEDS: Gabapentin 100 MG CAPSULE PO ×2 (09:58→15:27)
[2021-07-30] MEDS: Nicotine 21 MG PATCH.TD24 TRANSDERMA (10:00)
--- NOTE | 2021-07-30 17:04 | HO.PSYCHPN ---
Subjective Subjective Date of Service: 07/30/21 Reason For Visit: Acute psychosis Subjective Notes: Conditional Voluntary Interim History: The nursing staff reported a brighter affect, there was a lesion on her heel and a wound consult was done. Today we had a family meeting with her and we discussed her delusional thinking but she has real chronic pain that it could be explained by fibromyalgia. The patient agreed to revoke her 3 day notice and she will stay until Thursday. Mental Status Exam Mental Status Exam Patient Appearance: Well Grooomed Patient Orientation: Person Level of Consciousness: Awake Patient Behavior: Cooperative Mood Description: Depressed Affect Description: Constricted Patient Cognition Impaired: No Ability to Follow Directions: Good Speech Pattern: Appropriate Hallucinations: Tactile (Somatic complaint) Delusions: Bizarre Thought Process: Linear Thought Content: positive for Circumstantial and positive for Poverty of Content Judgement: Fair Diagnostics Vital Signs (24Hr): Vital Signs - 24 hr 07/29/21 20:56 07/30/21 06:00 Temperature 97 F 97.3 F Pulse Rate 76 Respiratory Rate 16 Blood Pressure 109/70 131/73 Pulse Oximetry 97 99 Body Mass Index 21.9 Labs Results: 07/26/21 13:50 07/26/21 13:50 Imaging Radiology Impressions: ITS Impressions Chest X-Ray 07/26/21 12:28 IMPRESSION: Clear lungs. Normal bowel gas pattern. KUB X-Ray 07/26/21 12:28 IMPRESSION: Clear lungs. Normal bowel gas pattern. Medications Medications Current Medications Acetaminophen (Acetaminophen 325 Mg Tablet) 650 mg PO Q6H PRN PRN Reason: Headache/Pain Mild Scale (1-3) Last Admin: 07/27/21 09:42 Dose: 650 mg Documented by: Al Hydroxide/Mg Hydroxide (Magnesium Hydrox/Alum Hydrox 30 Ml Oral.Susp) 30 ml PO Q6H PRN PRN Reason: Heartburn/Nausea Gabapentin (Gabapentin 100 Mg Capsule) 100 mg PO TID [facility] Last Admin: 07/30/21 15:27 Dose: 100 mg Documented by: Hydroxyzine HCl (Hydroxyzine Hcl 25 Mg Tablet) 25 mg PO BEDTIME PRN PRN Reason: Anxiety Magnesium Hydroxide (Milk Of Magnesia 30 Ml Oral.Susp) 30 ml PO DAILY PRN PRN Reason: Constipation Nicotine (Nicotine 21 Mg Patch.Td24) 21 mg TRANSDERMA DAILY [facility] Last Admin: 07/30/21 10:00 Dose: 21 mg Documented by: Trazodone HCl (Trazodone Hcl 50 Mg Tablet) 50 mg PO BEDTIME PRN PRN Reason: Insomnia Allergies Allergies Allergy/AdvReac Type Severity Reaction Status Date / Time silver Allergy Mild rash Verified 02/05/21 13:40 [From TEGADERM AG MESH] penicillin V Allergy Unknown anaphylaxis Verified 02/05/21 13:40 Penicillins [PENICILLINS] Allergy Unknown UNKNOWN Verified 02/05/21 13:40 Clindamycin HCl Allergy Unknown diarrhea Uncoded 02/05/21 13:40 Assessment & Plan Assessment & Plan (1) Somatic symptom disorder, severe: Status: Acute Code(s): F45.1 - Undifferentiated somatoform disorder (2) Severe recurrent major depressive disorder with psychotic features: Status: Acute Code(s): F33.3 - Major depressive disorder, recurrent, severe with psychotic symptoms Assessment and Plan: Pt is a 65 y.o. Female who [place] to [facility] [place] on [place]21 due to somatic delusions, known to M5, last IPLOC in 2019 and 2015, responded to ECT, hx of non-adherence to PO medications in OP setting and has poor insight. Plan: Pt is refusing medication at this time but she is amenable to taking PO benadryl for sleep. Will order benadryl 50 mg QHS for tonight and ativan 0.5 mg QHS PRN for tonight to address anxiety. Will defer to primary team for med management. Pt would likely benefit from another course of ECT. 1. I will offer Gabapentin to target chronic pain and anxiety. She agreed increase up to 200 mg p.o. t.i.d. 2. Gather collateral information. I spent minutes with the patient and/or on the patient floor today, greater than?50% of which was spent counseling/coordinating care. Reason for contiued inpatient stay Substantial Risk for: inability to function, rapid decompensation and med/psych decompensation
[2021-07-30 18:00] VITALS: BP 125/64; PULSE 75; RESP 18; TEMP 36.3; O2SAT 98
[2021-07-30] MEDS: Gabapentin 100 MG CAPSULE 200 MG PO (20:36)
[2021-07-31 06:00] VITALS: BP 119/59; PULSE 116; TEMP 36.5; O2SAT 97
[2021-07-31] MEDS: Gabapentin 100 MG CAPSULE 200 MG PO ×3 (08:29→21:01)
[2021-07-31] MEDS: Nicotine 21 MG PATCH.TD24 TRANSDERMA (08:29)
--- NOTE | 2021-07-31 15:51 | MHC.CLN ---
F/U VISITED PATIENT ON UNIT. STATED THAT SHE DOES NOT LIKE OR WANT ENSURE OR ENSURE HIGH PROTEIN. DISCONTINUE ENSURE MAX HIGH PROTEIN.
[2021-07-31 18:00] VITALS: BP 114/57; PULSE 84; RESP 20; TEMP 35.9; O2SAT 98
[2021-08-01 06:00] VITALS: BP 114/61; PULSE 61; RESP 18; TEMP 36.6; O2SAT 100
[2021-08-01 07:00] VITALS: BMI 21.9
[2021-08-01] MEDS: Gabapentin 100 MG CAPSULE 200 MG PO (10:42)
[2021-08-01] MEDS: Nicotine 21 MG PATCH.TD24 TRANSDERMA (10:43)
--- NOTE | 2021-08-01 13:18 | HO.PSYCHPN ---
Subjective Subjective Date of Service: 08/01/21 Reason For Visit: Acute psychosis Subjective Notes: Conditional Voluntary Interim History: The nursing staff reported the patient has been mostly isolative and she has verbalized some somatic delusions. The fisheries specialist saw her and apparently the lesion that she has on her foot is now much better, he does not need at this moment more active treatment. On interview, the patient denies new symptoms she is still somatically preoccupied with paresthesias most likely due to fibromyalgia. No safety concerns at this moment Mental Status Exam Mental Status Exam Patient Appearance: Disheveled and Unkempt Patient Orientation: Person and Situation Level of Consciousness: Awake and Appropriate Patient Behavior: Guarded and Cooperative Mood Description: Depressed Affect Description: Constricted Patient Cognition Impaired: No Ability to Follow Directions: Good Speech Pattern: Clear Memory Description: Intact Hallucinations: None Delusions: Not Present Thought Process: Linear Thought Content: positive for Circumstantial and positive for Hypochondriasis Judgement: Fair Diagnostics Vital Signs (24Hr): Vital Signs - 24 hr 07/31/21 18:00 08/01/21 06:00 Temperature 96.7 F L 97.8 F Pulse Rate 84 61 Respiratory Rate 20 18 Blood Pressure 114/57 L 114/61 Pulse Oximetry 98 100 Body Mass Index 21.9 Labs Results: 07/26/21 13:50 07/26/21 13:50 Imaging Radiology Impressions: ITS Impressions Chest X-Ray 07/26/21 12:28 IMPRESSION: Clear lungs. Normal bowel gas pattern. KUB X-Ray 07/26/21 12:28 IMPRESSION: Clear lungs. Normal bowel gas pattern. Medications Medications Current Medications Acetaminophen (Acetaminophen 325 Mg Tablet) 650 mg PO Q6H PRN PRN Reason: Headache/Pain Mild Scale (1-3) Last Admin: 07/27/21 09:42 Dose: 650 mg Documented by: Al Hydroxide/Mg Hydroxide (Magnesium Hydrox/Alum Hydrox 30 Ml Oral.Susp) 30 ml PO Q6H PRN PRN Reason: Heartburn/Nausea Gabapentin (Gabapentin 100 Mg Capsule) 200 mg PO TID RAVINDER Last Admin: 08/01/21 10:42 Dose: 200 mg Documented by: Hydroxyzine HCl (Hydroxyzine Hcl 25 Mg Tablet) 25 mg PO BEDTIME PRN PRN Reason: Anxiety Magnesium Hydroxide (Milk Of Magnesia 30 Ml Oral.Susp) 30 ml PO DAILY PRN PRN Reason: Constipation Nicotine (Nicotine 21 Mg Patch.Td24) 21 mg TRANSDERMA DAILY RAVINDER Last Admin: 08/01/21 10:43 Dose: 21 mg Documented by: Trazodone HCl (Trazodone Hcl 50 Mg Tablet) 50 mg PO BEDTIME PRN PRN Reason: Insomnia Allergies Allergies Allergy/AdvReac Type Severity Reaction Status Date / Time silver Allergy Mild rash Verified 02/05/21 13:40 [From TEGADERM AG MESH] penicillin V Allergy Unknown anaphylaxis Verified 02/05/21 13:40 Penicillins [PENICILLINS] Allergy Unknown UNKNOWN Verified 02/05/21 13:40 Clindamycin HCl Allergy Unknown diarrhea Uncoded 02/05/21 13:40 Assessment & Plan Assessment & Plan (1) Somatic symptom disorder, severe: Status: Acute Code(s): F45.1 - Undifferentiated somatoform disorder (2) Severe recurrent major depressive disorder with psychotic features: Status: Acute Code(s): F33.3 - Major depressive disorder, recurrent, severe with psychotic symptoms Assessment and Plan: Pt is a 65 y.o. Female who presented to [facility] on 07/26/21 due to somatic delusions, known to M5, last IPLOC in 2019 and 2015, responded to ECT, hx of non-adherence to PO medications in OP setting and has poor insight. Plan: Pt is refusing medication at this time but she is amenable to taking PO benadryl for sleep. Will order benadryl 50 mg QHS for tonight and ativan 0.5 mg QHS PRN for tonight to address anxiety. Will defer to primary team for med management. Pt would likely benefit from another course of ECT. 1. I will offer Gabapentin to target chronic pain and anxiety. She agreed increase up to 200 mg p.o. t.i.d. 2. Gather collateral information. 3. Since there were no safety concerns, the patient can be discharged tomorrow I spent minutes with the patient and/or on the patient floor today, greater than?50% of which was spent counseling/coordinating care. Reason for contiued inpatient stay Substantial Risk for: inability to function, rapid decompensation and med/psych decompensation
--- NOTE | 2021-08-01 15:39 | P.EN_ITS ---
Event Note Date of Service: 08/01/21 Event Note: The patient has reported headaches with gabapentin 200 mg and we d iscussed her treatment options and we will lower to 100 mg p.o. t.i.d.
--- NOTE | 2021-08-01 15:40 | PM.PSYDC ---
DS: Providers Provider Date of Service: 08/02/21 Date of admission: 07/26/21 18:45 Date of discharge: 08/02/21 Primary care physician: Shavon Awad MD DS: Diagnosis Discharge Diagnosis (1) Somatic symptom disorder, severe: Status: Acute (2) Severe recurrent major depressive disorder with psychotic features: Status: Acute DS: Medications Discharge Medications Home Medications: Home Medications Medication Instructions Recorded Confirmed No Known Home Meds 07/26/21 07/26/21 Mental Status Exam Mental Status Exam Patient Appearance: Well Grooomed Patient Orientation: Person and Situation Level of Consciousness: Awake Patient Behavior: Guarded and Passive Mood Description: Depressed Affect Description: Constricted Patient Cognition Impaired: No Ability to Follow Directions: Good Speech Pattern: Clear Hallucinations: Tactile (Somatic delusions) Delusions: Paranoid Ideation Thought Process: Linear Thought Content: positive for Circumstantial, positive for Poverty of Content and positive for Hypochondriasis Judgement: Fair Data Data Completed and Pending Completed studies during hospitalization [Text1]: 07/26/21 07/26/21 07/26/21 13:50 13:50 13:50 WBC 8.5 RBC 5.00 Hgb 16.0 Hct 47.7 H MCV 95.4 MCH 32.0 MCHC 33.5 RDW 13.2 Plt Count 251 MPV 11.1 Immature Gran % (Auto) 0.2 Neut % (Auto) 76.6 H Lymph % (Auto) 15.7 L [place] % (Auto) 5.0 Eos % (Auto) 1.1 Baso % (Auto) 1.4 Lymph # (Auto) 1.3 [place] # (Auto) 0.4 Eos # (Auto) 0.1 Baso # (Auto) 0.1 Abs Immat Gran (auto) 0.02 Absolute Neuts (auto) 6.5 Absolute Nucleated RBC 0.000 Nucleated RBC % (auto) 0.0 Sodium 141 Potassium 4.5 Chloride 105 Carbon Dioxide 28 Anion Gap 13 BUN 9 Creatinine 0.86 Estim Creat Clear Calc 51.5 Estimated GFR > 60 Random Glucose 113 Calcium 10.3 H Magnesium 2.3 Total Bilirubin 0.7 Direct Bilirubin 0.2 AST 12 ALT 8 Alkaline Phosphatase 59 D Total Creatine Kinase 57 Total Protein 7.8 Albumin 4.9 Lipase 19 TSH 1.16 Urine Color Urine Appearance Urine pH Ur Specific [place] Urine Protein Urine Glucose (UA) Urine Ketones Urine Blood Urine Nitrite Ur Leukocyte Esterase Urine RBC Urine WBC Ur Squamous Epith Cells Amorphous Sediment Urine Bacteria Urine Opiates Screen Urine Fentanyl Screen Ur Barbiturates Screen Ur Phencyclidine Scrn Ur Amphetamines Screen U Benzodiazepines Scrn Urine Cocaine Screen U Marijuana (THC) Screen Ethyl Alcohol COVID-19 (JANICE) COVID-19 [employer] 07/26/21 07/26/21 07/27/21 13:50 13:50 16:00 WBC RBC Hgb Hct MCV MCH MCHC RDW Plt Count MPV Immature Gran % (Auto) Neut % (Auto) Lymph % (Auto) [place] % (Auto) Eos % (Auto) Baso % (Auto) Lymph # (Auto) [place] # (Auto) Eos # (Auto) Baso # (Auto) Abs Immat Gran (auto) Absolute Neuts (auto) Absolute Nucleated RBC Nucleated RBC % (auto) Sodium Potassium Chloride Carbon Dioxide Anion Gap BUN Creatinine Estim Creat Clear Calc Estimated GFR Random Glucose Calcium Magnesium Total Bilirubin Direct Bilirubin AST ALT Alkaline Phosphatase Total Creatine Kinase Total Protein Albumin Lipase TSH Urine Color Urine Appearance Urine pH Ur Specific [place] Urine Protein Urine Glucose (UA) Urine Ketones Urine Blood Urine Nitrite Ur Leukocyte Esterase Urine RBC Urine WBC Ur Squamous Epith Cells Amorphous Sediment Urine Bacteria Urine Opiates Screen Not Detected Urine Fentanyl Screen Not Detected Ur Barbiturates Screen Not Detected Ur Phencyclidine Scrn Not Detected Ur Amphetamines Screen Not Detected U Benzodiazepines Scrn Not Detected Urine Cocaine Screen Not Detected U Marijuana (THC) Screen Not Detected Ethyl Alcohol < 10 COVID-19 (JANICE) Negative COVID-19 [employer] See Note 07/27/21 16:00 WBC RBC Hgb Hct MCV MCH MCHC RDW Plt Count MPV Immature Gran % (Auto) Neut % (Auto) Lymph % (Auto) [place] % (Auto) Eos % (Auto) Baso % (Auto) Lymph # (Auto) [place] # (Auto) Eos # (Auto) Baso # (Auto) Abs Immat Gran (auto) Absolute Neuts (auto) Absolute Nucleated RBC Nucleated RBC % (auto) Sodium Potassium Chloride Carbon Dioxide Anion Gap BUN Creatinine Estim Creat Clear Calc Estimated GFR Random Glucose Calcium Magnesium Total Bilirubin Direct Bilirubin AST ALT Alkaline Phosphatase Total Creatine Kinase Total Protein Albumin Lipase TSH Urine Color YELLOW Urine Appearance CLEAR Urine pH 6.5 Ur Specific [place] 1.010 Urine Protein NEG Urine Glucose (UA) NEG Urine Ketones NEG Urine Blood NEG Urine Nitrite NEG Ur Leukocyte Esterase 1+ H Urine RBC 0-2 Urine WBC 1-4 Ur Squamous Epith Cells TRACE Amorphous Sediment 1+ Urine Bacteria TRACE Urine Opiates Screen Urine Fentanyl Screen Ur Barbiturates Screen Ur Phencyclidine Scrn Ur Amphetamines Screen U Benzodiazepines Scrn Urine Cocaine Screen U Marijuana (THC) Screen Ethyl Alcohol COVID-19 (JANICE) COVID-19 Clin Com 07/27/21 Unknown Urine clean catch - Urine ferrera top Urine Culture - Final Imaging Diagnostic Imaging Impressions Chest X-Ray 07/26/21 12:28 IMPRESSION: Clear lungs. Normal bowel gas pattern. KUB X-Ray 07/26/21 12:28 IMPRESSION: Clear lungs. Normal bowel gas pattern. DS: Summary Hospital Course Hospital Course: The patient is a 65-year-old female, , with a long history of delusional disorder somatic type with previous admissions into the hospital. Please see HPI on admission note for more details. On intake, the patient signed a conditional voluntary paperwork and immediately she signed a 3 day notice since she stated that she was not a psychiatric patient and her memory complaints are physical. On admission, the patient complained of very different somatic complaints such as numbness, paresthesias, the feeling that there was no circulation and other bizarre complaints. Later, we started looking into her chart and apparently she has had these symptoms for more than 15 years with episodes of chronic pain, symptoms that could be IBS, and all other symptoms but she always verbalized and described her symptoms denied inclusive manner. We had a family meeting and I started eating more information regarding her symptoms and it is clear that the patient suffers from a chronic pain syndrome such as fibromyalgia. We discussed risks, benefits, side effects, alternatives and she agreed to try gabapentin titrated up to 200 mg p.o. t.i.d. but unfortunately she could tolerate only 100 mg p.o. t.i.d.. She was agreeable of discontinuing her 3 day notice that she wanted to be discharged as soon as possible. Even though that the patient has chronic delusions she is not suicidal nor homicidal and she is able to contract for safety. She also can take care of herself. Psychoeducation to her condition was provided and encouragement to follow treatment as an outpatient was done. Since the patient did not have safety concerns discharge planning was discussed Time spent discussing smoking cessation with patient: 3 to 10 minutes Status at Discharge Cognitive/behavioral status at discharge: At baseline Functional status at discharge: independent ambulation Overall status at discharge: patient is back to baseline Time Spent with Patient Time attestation: Total time spent providing and/or coordinating discharge services: Time spent: Less than 30 minutes Discharge Plan Discharge Anticipated Discharge Date/Time: 08/02/21 11:00 Patient Disposition: Home, Self-Care Discharge Diagnosis: Delusive disorder Referrals: [facility] [Other] - 08/03/21 ([facility] to provide wound care. Will begin service on 08/03/21.) Renny Izquierdo. [facility] [Other] - 08/06/21 12:00 pm (Your next telehealth appointment with Renny Izquierdo at [facility] is 08/06/21 from 12-1pm.) Shavon Awad MD [Primary Care Provider] - 1 Week Discharge Medications: New acetaminophen 325 mg Tablet 650 mg PO Q6H PRN (Reason: Headache/Pain Mild Scale (1-3)) Qty: 30 RF: 0 gabapentin 100 mg Capsule 100 mg PO TID 30 Days Qty: 90 RF: 0 Discharge Orders: Discharge Order (Routine); Ordered 08/02/21 Ordered By: Ilan Owens Diet: advance to usual diet Activity on Discharge: As tolerated Stand Alone Forms: Patient Portal Discharge page Care Plan Goals: Care plan goals achieved in the unit Health Concerns: Follow-up outpatient treatment by PCP Plan of Treatment: Continue psychotherapy Assessment: Middle-aged female with a long history of the loosing disorder with somatic complaints, most likely induced by fibromyalgia. At this moment safe in the community
[2021-08-01 16:39] VITALS: BP 133/63; PULSE 83; RESP 18; TEMP 36.3; O2SAT 100
[2021-08-01] MEDS: Gabapentin 100 MG CAPSULE PO (21:54)
[2021-08-02 06:00] VITALS: BP 120/68; PULSE 68; TEMP 36.9; O2SAT 98
[2021-08-02] MEDS: Gabapentin 100 MG CAPSULE PO (09:04)
--- NOTE | 2021-08-02 11:29 | HO.PSYCHPN ---
Subjective Subjective Date of Service: 08/02/21 Reason For Visit: Acute psychosis Subjective Notes: Conditional Voluntary and 3 Day Guardianship: No Interim History: Pt remains delusional irritable but safe for d/c no si Medication Compliance: Intermittent Mental Status Exam Mental Status Exam Patient Appearance: Well Grooomed Patient Orientation: Person and Situation Level of Consciousness: Awake Patient Behavior: Guarded and Passive Mood Description: Depressed Affect Description: Constricted Patient Cognition Impaired: No Ability to Follow Directions: Good Speech Pattern: Clear Hallucinations: Tactile (Somatic delusions) Delusions: Paranoid Ideation Thought Process: Linear Thought Content: positive for Circumstantial, positive for Poverty of Content and positive for Hypochondriasis Judgement: Fair Diagnostics Vital Signs (24Hr): Vital Signs - 24 hr 08/01/21 16:39 08/02/21 06:00 Temperature 97.3 F 98.4 F Pulse Rate 83 68 Respiratory Rate 18 Blood Pressure 133/63 120/68 Pulse Oximetry 100 98 Body Mass Index 21.9 Labs Results: 07/26/21 13:50 07/26/21 13:50 Imaging Radiology Impressions: ITS Impressions Chest X-Ray 07/26/21 12:28 IMPRESSION: Clear lungs. Normal bowel gas pattern. KUB X-Ray 07/26/21 12:28 IMPRESSION: Clear lungs. Normal bowel gas pattern. Medications Medications Current Medications Acetaminophen (Acetaminophen 325 Mg Tablet) 650 mg PO Q6H PRN PRN Reason: Headache/Pain Mild Scale (1-3) Last Admin: 07/27/21 09:42 Dose: 650 mg Documented by: Al Hydroxide/Mg Hydroxide (Magnesium Hydrox/Alum Hydrox 30 Ml Oral.Susp) 30 ml PO Q6H PRN PRN Reason: Heartburn/Nausea Gabapentin (Gabapentin 100 Mg Capsule) 100 mg PO TID [facility] Last Admin: 08/02/21 09:04 Dose: 100 mg Documented by: Hydroxyzine HCl (Hydroxyzine Hcl 25 Mg Tablet) 25 mg PO BEDTIME PRN PRN Reason: Anxiety Magnesium Hydroxide (Milk Of Magnesia 30 Ml Oral.Susp) 30 ml PO DAILY PRN PRN Reason: Constipation Nicotine (Nicotine 21 Mg Patch.Td24) 21 mg TRANSDERMA DAILY [facility] Last Admin: 08/02/21 10:19 Dose: Not Given Documented by: Trazodone HCl (Trazodone Hcl 50 Mg Tablet) 50 mg PO BEDTIME PRN PRN Reason: Insomnia Allergies Allergies Allergy/AdvReac Type Severity Reaction Status Date / Time silver Allergy Mild rash Verified 02/05/21 13:40 [From TEGADERM AG MESH] penicillin V Allergy Unknown anaphylaxis Verified 02/05/21 13:40 Penicillins [PENICILLINS] Allergy Unknown UNKNOWN Verified 02/05/21 13:40 Clindamycin HCl Allergy Unknown diarrhea Uncoded 02/05/21 13:40 Assessment & Plan Assessment & Plan (1) Somatic symptom disorder, severe: Status: Acute Code(s): F45.1 - Undifferentiated somatoform disorder (2) Severe recurrent major depressive disorder with psychotic features: Status: Acute Code(s): F33.3 - Major depressive disorder, recurrent, severe with psychotic symptoms Assessment and Plan: Pt is a 65 y.o. Female who presented to [facility] on 07/26/21 due to somatic delusions, known to M5, last IPLOC in 2019 and 2015, responded to ECT, hx of non-adherence to PO medications in OP setting and has poor insight. Plan: Pt is refusing medication at this time but she is amenable to taking PO benadryl for sleep. Will order benadryl 50 mg QHS for tonight and ativan 0.5 mg QHS PRN for tonight to address anxiety. Will defer to primary team for med management. Pt would likely benefit from another course of ECT. see dr cardoza d/c note pt refuses antipsychotic started on gabapentin I spent minutes with the patient and/or on the patient floor today, greater than?50% of which was spent counseling/coordinating care. Patient educated on: diagnosis, medication risk/benefits and medical condition Informed Consent: does not understand Reason for contiued inpatient stay Substantial Risk for: other (d/c on 3 day)
--- NOTE | 2021-08-02 12:11 | PC.NURSE ---
Pt discharged of the floor with all her belongings with present. Pt reports she feels she has been stigmatized by admissions to the psychiatric floor, pt stated It's all medical, I never needed to be on this floor .
== END 2021-08-02 12:02 | disposition home or self-care (01) | DRG 885 ==
LOC: HO.ED 15:43 → HO.PGERI 18:53
PROVIDERS: Admitting Provider Psychiatry & Neurology Psychiatry; Emergency Provider Emergency Medicine; PCP Internal Medicine; Visit Provider Psychiatry & Neurology Psychiatry
DX: F33.3 Major depressive disorder, recurrent, severe with psychotic symptoms (principal); F45.1 Undifferentiated somatoform disorder; F17.210 Nicotine dependence, cigarettes, uncomplicated; Z71.6 Tobacco abuse counseling; Z23 Encounter for immunization; Z20.822 Contact with and (suspected) exposure to COVID-19; M79.7 Fibromyalgia; R51.9 Headache, unspecified; G89.29 Other chronic pain; Z88.0 Allergy status to penicillin; Z79.899 Other long term (current) drug therapy
CPT/HCPCS: 36415; 71045; 74018; 80048; 80076; 80307; 81001; 82077; 82550; 83690; 83735; 84443; 85025; 87086; 87635; 90686; 93005; 99285; Q0163

== ENCOUNTER 2022-07-28 14:37 | Outpatient (REF) | payer MEDICARE, SELFPAY ==
--- NOTE | ~2022-07-28 | MM_ITS ---
EXAMINATION: MM SCREENING DIGITAL BREAST TOMOSYNTHESIS, BILATERAL CLINICAL INFORMATION: Screening. Asymptomatic. COMPARISON: Mammography: May 29, 2018 and studies dating back to August 03, 2010 TECHNIQUE: Digital breast tomosynthesis is performed in both the craniocaudal and mediolateral oblique views along with computer-aided detection (CAD). Synthesized 2D images are generated from the tomosynthesis. FINDINGS: There are scattered areas of fibroglandular density (ACR BI-RADS breast composition Category b). There are no significant masses, abnormal calcifications, or other abnormalities. MM/MM tomosynthesis screening BI IMPRESSION: No significant changes from prior exam. ASSESSMENT: BI-RADS 1: Negative RECOMMENDATION: Routine annual mammography screening. This patient's information was entered into a reminder system with a target due date for their next mammogram.
== END 2022-07-28 14:38 | disposition home or self-care (01) ==
LOC: HO.MAMMO 14:37
PROVIDERS: Visit Provider Internal Medicine
DX: Z12.31 Encounter for screening mammogram for malignant neoplasm of breast (principal)
CPT/HCPCS: 77063; 77067

== ENCOUNTER 2023-03-11 09:45 | Outpatient (REF) | payer MEDICARE, SELFPAY ==
[2023-03-11 11:14] LABS: MANUAL DIFF FLAG NO
[2023-03-11 11:23] LABS: Basophils Absolute Auto 0.1 X10*3/uL (0.0-0.2); Basophils Percent Auto 1.5 % (0-2); Eosinophils Absolute Auto 0.2 X10*3/uL (0.0-0.4); Eosinophils Percent Auto 3.4 % (0-4); Hematocrit 42.6 % (37.0-47.0); Hemoglobin 14.1 g/dl (12.0-16.0); Imm Gran Abs Auto 0.02 X10*3/uL (0.00-0.03); Imm Gran Pct Auto 0.3 % (0.0-0.4); Lymphocytes Absolute Auto 1.3 X10*3/uL (1.2-4.9); Mean Corpuscular HGB Conc 33.1 g/dl (31.0-35.0); Mean Corpuscular Hemoglobin 31.9 pg (27.0-33.0); Mean Corpuscular Volume 96.4 fL (80.0-98.0); Mean Platelet Volume 11.5 fL (9.4-12.3); Monocytes Absolute Auto 0.3 X10*3/uL (0.1-1.2); Monocytes Percent Auto 5.2 % (2-11); Neutrophils Absolute Auto 4.2 x10*3/uL (2.0-8.3); Neutrophils Percent Auto 68.6 % (45-73); Platelet Count 192 X10*3/uL (160-400); Red Blood Count 4.42 X10*6/uL (4.20-5.50); Red Cell Distribution Width 13.5 % (11.0-16.0); White Blood Count 6.2 X10*3/uL (4.8-10.8)
[2023-03-11 11:58] LABS: Alanine Aminotransferase 11 U/L (0-31); Albumin Level 4.2 g/dL (3.5-5.0); Alkaline Phosphatase 50 U/L (39-117); Anion Gap 12 (12-20); Aspartate Amino Transferase 15 U/L (5-31); Bilirubin Total 0.7 mg/dL (0.0-1.0); Blood Urea Nitrogen 11 mg/dL (9-16); Calcium 10.3 mg/dL (8.4-10.2); Carbon Dioxide 27 mmol/L (22-29); Chloride 104 mmol/L (96-108); Cholesterol 292 mg/dL; Estimated Glomerular Filt Rate > 60; Glucose Fasting 107 mg/dL (60-99); HDL Cholesterol 62 mg/dL; LDL Cholesterol Calculated 203 mg/dl; Potassium 4.2 mmol/L (3.3-5.1); Sodium 139 mmol/L (135-145); Total Protein 7.5 g/dL (6.5-8.0); Triglycerides 135 mg/dL
[2023-03-11 12:20] LABS: TSH reflex Free T4 2.53 uIU/mL (0.32-4.0); Vitamin D 25-OH Total 39.9 ng/mL (>30)
== END 2023-03-11 09:46 | disposition home or self-care (01) ==
LOC: HO.HMGCLDS 09:45
PROVIDERS: PCP Internal Medicine; Visit Provider Internal Medicine
DX: Z00.00 Encounter for general adult medical examination without abnormal findings (principal); E55.9 Vitamin D deficiency, unspecified
CPT/HCPCS: 36415; 80053; 80061; 82306; 84443; 85025

== ENCOUNTER 2023-03-18 08:50 | Outpatient (REF) | payer MEDICARE, SELFPAY ==
--- NOTE | ~2023-03-18 | MM_ITS ---
EXAMINATION: BONE DENSITOMETRY CLINICAL INDICATION: Menopause. COMPARISON: None (current study represents initial baseline exam). TECHNIQUE: Using a [employer] DXA System (software version: 13.1) manufactured by [employer], dual-energy x-ray absorptiometry was performed of the lumbar spine and left hip. The images are of good technical quality. Summary results are attached. FINDINGS: LEFT FEMUR, NECK: BMD 0.612 g/cm2, Z-score -1.5, T-score -3.1, osteoporosis. LEFT FEMUR, TOTAL: BMD 0.640 g/cm2, Z-score -1.6, T-score -2.9, osteoporosis. AP SPINE L1-L4: BMD 0.921 g/cm2, Z-score -0.5, T-score -2.2, osteopenia. IDENTIFIED RISK FACTORS: Menopause, tobacco use (current smoker). HISTORY OF FRACTURE: None listed. MEDICATIONS: Vitamin D. MM/XR DEXA axial skeleton IMPRESSION: 1. DIAGNOSIS: Osteoporosis based on the lowest T-score value of -3.1 in the femoral neck applying World Health Organization criteria. 2. 10-YEAR FRACTURE RISK PREDICTION, FRAX: According to the guidelines, FRAX calculation should only be performed on patients in the osteopenia bone density category. Therefore, FRAX was not performed on this patient. 3. Treatment Recommendations: NOF guidelines recommend consideration for treatment in postmenopausal women and men age 50 and older presenting with the following: -A hip or vertebral (clinical or morphometric) fracture. -T-score less than or equal to -2.5 at the femoral neck or spine after appropriate evaluation to exclude secondary causes. -Low bone mass at the hip or spine and a 10-year fracture probability by FRAX of greater than or equal to 3% for hip fracture or greater than or equal to 20% for major osteoporotic fracture based on the [place] adapted WHO algorithm. 4. Other Recommendations: All treatment decisions require clinical judgment and consideration of individual patient factors, including patient preferences, comorbidities, previous drug use, risk factors not captured in the FRAX model (e.g. frailty, falls, vitamin D deficiency, increased bone turnover, interval significant decline in bone density) and possible under or overestimation of fracture risk by FRAX. Additional medical evaluation for secondary cause of low bone mineral density may be appropriate. FUTURE SCAN RECOMMENDATION: People with diagnosed cases of osteoporosis or at high risk for fracture should have regular bone mineral density tests. For patients eligible for Medicare, routine testing is allowed once every 2 years. The testing frequency can be increased to one year for patients who have rapidly progressing disease, those who are receiving or discontinuing medical therapy to restore bone mass, or have additional risk factors.
== END 2023-03-18 08:51 | disposition home or self-care (01) ==
LOC: HO.MAMMO 08:50
PROVIDERS: PCP Internal Medicine; Visit Provider Internal Medicine
DX: Z13.820 Encounter for screening for osteoporosis (principal); Z78.0 Asymptomatic menopausal state
CPT/HCPCS: 77080

== ENCOUNTER 2023-06-01 07:12 | Outpatient (REF) | payer MEDICARE, SELFPAY ==
[2023-06-01 12:10] LABS: Alanine Aminotransferase 12 U/L (0-31); Alkaline Phosphatase 41 U/L (39-117); Anion Gap 9 (12-20); Aspartate Amino Transferase 16 U/L (5-31); Bilirubin Total 0.5 mg/dL (0.0-1.0); Blood Urea Nitrogen 15 mg/dL (9-16); Calcium 9.6 mg/dL (8.4-10.2); Carbon Dioxide 30 mmol/L (22-29); Chloride 106 mmol/L (96-108); Cholesterol 154 mg/dL (<200); Estimated Glomerular Filt Rate > 60; Glucose Fasting 94 mg/dL (60-99); HDL Cholesterol 63 mg/dL (>40); LDL Cholesterol Calculated 77 mg/dL (<100); Sodium 141 mmol/L (135-145); Total Protein 6.8 g/dL (6.5-8.0); Triglycerides 73 mg/dL (<150)
== END 2023-06-01 07:13 | disposition home or self-care (01) ==
LOC: HO.HMGCLDS 07:12
PROVIDERS: PCP Internal Medicine; Visit Provider Internal Medicine
DX: M81.0 Age-related osteoporosis without current pathological fracture (principal); E78.5 Hyperlipidemia, unspecified
CPT/HCPCS: 36415; 80053; 80061

== ENCOUNTER 2023-06-08 11:09 | Outpatient (AMB) | payer MEDICARE, SELFPAY ==
[2023-06-08 11:39] VITALS: BP 124/70; PULSE 77; O2SAT 95; BMI 24.5
--- NOTE | 2023-06-08 11:39 | MHC.PC.OV ---
Vital Signs 06/08/23 11:39 Height 5 ft 4 in Weight 143 lb BMI 24.5 BP 124/70 Blood Pressure Location Rt brachial Position Sitting Pulse 77 Pulse Source Pulse Oximeter Pulse Oximetry (%) 95 Oxygen Delivery Method Room Air Intake Visit Reasons: followup osteoporosis, meds Intake Note: Pt is here today for a follow up visit . Allergies silver [From TEGADERM AG MESH] Allergy (Mild, Verified 06/08/23 11:42) rash penicillin V Allergy (Unknown, Verified 06/08/23 11:42) anaphylaxis Penicillins [PENICILLINS] Allergy (Unknown, Verified 06/08/23 11:42) n/a Clindamycin HCl Allergy (Unknown, Uncoded 06/08/23 11:42) diarrhea Medication List - Last Reconciled 06/08/23 by Shavon Awad MD alendronate 70 mg PO QWEEK cholecalciferol (vitamin D3) 50 mcg PO DAILY escitalopram oxalate 20 mg PO DAILY ketoconazole 2% 1 appl topical DAILY melatonin 9 mg PO BEDTIME PRN rosuvastatin (Crestor) 10 mg PO BEDTIME 30 days Tobacco use date assessed: 06/08/23 Fall risk assessment: No Falls in past year Last assessed Fall Risk: 06/08/23 Dental Screening Dental Screen Date: 06/08/23 Did you have a dental visit in the last 12 months?: Yes Did you have a dental problem in the last 6 months where you did not have access to dental care?: No Was dental information given to patient?: Patient has dentist HPI followup osteoporosis, meds HPI Details Pt presents for f/u of hyperlipid, stable on Crestor and osteoporosis, stable on Fosomax. PFSH Medical History Acute anxiety Acute psychosis Arthralgia Depression IBS (irritable bowel syndrome) Serrated adenoma of colon Somatic delusion Surgical History H/O colonoscopy Family History Father No problems noted. Mother Leukemia Cancer Family/Other Lung cancer Social History Household Members: Spouse Household Members Other:: son comes every other weekend Housing: House Do you presently have visiting nurse or other home services: No (would like meals on wheels states limits food at the house .) Alcohol intake: never Patient Tobacco Use Status: Current everyday Tobacco user Tobacco use type: Cigarette Cigarette Packs Per Day: 0.5 Cigarettes Per Day: 5 Years Smoked: 20 e-Cigarette/Vaping Use: Never Used Second Hand Smoke Exposure: No Substance Use Type: Caffiene Advance Directives Date on File: 07/29/21 service: No Current occupational status: disabled Sexual orientation: Straight/Heterosexual Cognitive needs: No Hearing needs: No Vision needs: Yes Questionnaire Thrive Questionnaire Date Thrive assessed: 10/31/21 AUDIT C Alcohol Use Questionnaire (AUDIT-C) 1. How often do you have a drink containing alcohol?: Monthly or less 2. How many drinks containing alcohol do you have on a typical day when you are drinking?: 1 or 2 3. How often do you have six or more drinks on one occasion?: Never Total Score: 1 NASEEM-7 AMB Questionnaire NASEEM-7 Date NASEEM - 7 assessed: 10/31/21 Feeling nervous, anxious, or on edge: 0 = Not at all Not being able to stop or control worryin = Not at all Worrying too much about different things: 0 = Not at all Trouble relaxin = Not at all Being so restless that it is hard to sit still: 0 = Not at all Becoming easily annoyed or irritable: 0 = Not at all Feeling afraid as if something awful might happen: 0 = Not at all Total NASEEM-7 score (0-4 normal; 5-9 mild; 10-14 moderate; 15-21 severe): 0 Source: Developed by Drs. Byron Mark, Samantha Johnson, Pelon Herrera and colleagues, with an educational yanni from [employer]. Review of Systems Const All systems reviewed & are unremarkable except as noted in HPI and below Reports no additional complaints Eyes Reports no additional complaints ENT Reports no additional complaints Card Reports no additional complaints Resp Reports no additional complaints GI Reports no additional complaints Reports no additional complaints Musc Reports no additional complaints Physical exam (Primary Care) Vital Signs: Last Vital Signs Pulse 77 06/08/23 11:39 BP 124/70 06/08/23 11:39 Pulse Ox 95 06/08/23 11:39 Oxygen Delivery Method Room Air 06/08/23 11:39 BMI result Body Mass Index 24.5 Tobacco/Smoking Status: Tobacco use Status Tobacco use date assessed 06/08/23 06/08/23 11:44 Patient Tobacco Use Status Current everyday Tobacco 06/08/23 11:44 Tobacco use type Cigarette 06/08/23 11:44 e-Cigarette/Vaping Use Never Used 06/08/23 11:44 Thrive Assessment: Date of Thrive Assessment Date Thrive assessed 10/31/21 06/08/23 11:44 Const General: no acute distress HENMT Ears: hearing grossly normal bilaterally Throat: Yes posterior oropharynx normal Eyes General: appearance normal, both eyes and all related structures Neck Neck: Yes no lymphadenopathy and Yes supple Resp Effort & Inspection: normal respiratory effort Auscultation: clear to auscultation bilaterally Cardio Rhythm: regular rhythm Heart sounds: S1 normal heart sound present and S2 normal heart sound present GI Inspection: Yes normal to inspection Palpation (GI): Soft to palpation Percussion: Yes normal to percussion Auscultation: normal bowel sounds Assessment and Plan Assessment & Plan (1) Hyperlipidemia: Comment: Started Crestor 03/13 Code(s): E78.5 - Hyperlipidemia, unspecified Plan: cont Crestor (2) Osteoporosis: Code(s): M81.0 - Age-related osteoporosis without current pathological fracture Plan: cont FOSAMAX Orders: Orders Complete Blood Count Auto Diff 9 Months E78.5 - Hyperlipidemia, unspecified, M81.0 - Age-related osteoporosis without current pathological fracture TSH reflex Free T4 9 Months E78.5 - Hyperlipidemia, unspecified, M81.0 - Age-related osteoporosis without current pathological fracture Vitamin D 25-OH Total 9 Months E78.5 - Hyperlipidemia, unspecified, M81.0 - Age-related osteoporosis without current pathological fracture Lipid Panel 9 Months E78.5 - Hyperlipidemia, unspecified, M81.0 - Age-related osteoporosis without current pathological fracture Comprehensive Laie. Panel Fast 9 Months E78.5 - Hyperlipidemia, unspecified, M81.0 - Age-related osteoporosis without current pathological fracture Medications: Refilled alendronate 70 mg PO QWEEK 10 tabs 3RF rosuvastatin (Crestor) 10 mg PO BEDTIME 90 tabs 3RF 30 days Coding Level of Care Code Est Pt Level 4 (93985) Diagnoses Hyperlipidemia E78.5 Osteoporosis M81.0
== END 2023-06-08 12:01 | disposition home or self-care (01) ==
PROVIDERS: PCP Internal Medicine; Visit Provider Internal Medicine
DX: E78.5 Hyperlipidemia, unspecified (principal); M81.0 Age-related osteoporosis without current pathological fracture
CPT/HCPCS: 99214

== ENCOUNTER → 2023-06-08 15:09 | Outpatient (BNVA) | payer MEDICARE, SELFPAY | PROVIDERS: PCP Internal Medicine; Visit Provider Nurse Practitioner Family ==

== ENCOUNTER 2023-07-30 14:39 | Outpatient (REF) | payer MEDICARE, SELFPAY | END 2023-07-30 14:40 | disposition home or self-care (01) | LOC: HO.MAMMO 14:39 | PROVIDERS: PCP Internal Medicine; Visit Provider Internal Medicine | DX: Z12.31 Encounter for screening mammogram for malignant neoplasm of breast (principal) | CPT/HCPCS: 77063; 77067 ==

== ENCOUNTER → 2023-07-30 14:45 | Outpatient (BNV) | payer MEDICARE, SELFPAY | PROVIDERS: PCP Internal Medicine; Visit Provider Radiology Diagnostic Radiology | DX: Z12.31 Encounter for screening mammogram for malignant neoplasm of breast (principal) | CPT/HCPCS: 77063; 77067 ==

== ENCOUNTER 2024-04-04 09:40 | Outpatient (REF) | payer MEDICARE, SELFPAY ==
[2024-04-04 13:11] LABS: MANUAL DIFF FLAG NO
[2024-04-04 13:25] LABS: Basophils Absolute Auto 0.1 X10*3/uL (0.0-0.2); Basophils Percent Auto 1.8 % (0-2); Eosinophils Absolute Auto 0.3 X10*3/uL (0.0-0.4); Eosinophils Percent Auto 5.1 % (0-4); Hemoglobin 13.3 g/dl (12.0-16.0); Imm Gran Abs Auto 0.01 X10*3/uL (0.00-0.03); Imm Gran Pct Auto 0.2 % (0.0-0.4); Lymphocytes Absolute Auto 1.5 X10*3/uL (1.2-4.9); Lymphocytes Percent Auto 27.4 % (20-40); Mean Corpuscular HGB Conc 33.3 g/dl (31.0-35.0); Mean Corpuscular Hemoglobin 32.5 pg (27.0-33.0); Mean Corpuscular Volume 97.8 fL (80.0-98.0); Mean Platelet Volume 11.9 fL (9.4-12.3); Monocytes Absolute Auto 0.4 X10*3/uL (0.1-1.2); Monocytes Percent Auto 6.8 % (2-11); Neutrophils Absolute Auto 3.2 x10*3/uL (2.0-8.3); Neutrophils Percent Auto 58.7 % (45-73); Platelet Count 165 X10*3/uL (160-400); Red Blood Count 4.09 X10*6/uL (4.20-5.50); Red Cell Distribution Width 13.1 % (11.0-16.0); White Blood Count 5.5 X10*3/uL (4.8-10.8)
[2024-04-04 13:54] LABS: Alanine Aminotransferase 14 U/L (0-31); Albumin Level 4.1 g/dL (3.5-5.0); Alkaline Phosphatase 37 U/L (39-117); Anion Gap 10 (12-20); Aspartate Amino Transferase 18 U/L (5-31); Bilirubin Total 0.6 mg/dL (0.0-1.0); Blood Urea Nitrogen 11 mg/dL (9-16); Calcium 8.9 mg/dL (8.4-10.2); Carbon Dioxide 26 mmol/L (22-29); Chloride 108 mmol/L (96-108); Cholesterol 145 mg/dL (<200); Estimated Glomerular Filt Rate > 60; Glucose Fasting 86 mg/dL (60-99); HDL Cholesterol 68 mg/dL (>40); LDL Cholesterol Calculated 68 mg/dL (<100); Potassium 4.2 mmol/L (3.3-5.1); Sodium 140 mmol/L (135-145); Total Protein 6.8 g/dL (6.5-8.0); Triglycerides 48 mg/dL (<150)
[2024-04-04 13:56] LABS: TSH reflex Free T4 1.64 uIU/mL (0.32-4.0); Vitamin D 25-OH Total 45.7 ng/mL (>30)
== END 2024-04-04 09:41 | disposition home or self-care (01) ==
LOC: HO.HMGCLDS 09:40
PROVIDERS: PCP Internal Medicine; Visit Provider Internal Medicine
DX: E78.5 Hyperlipidemia, unspecified (principal); M81.0 Age-related osteoporosis without current pathological fracture
CPT/HCPCS: 36415; 80053; 80061; 82306; 84443; 85025

== ENCOUNTER 2024-04-11 09:51 | Outpatient (AMB) | payer MEDICARE, SELFPAY ==
[2024-04-11 09:53] VITALS: BP 136/82; PULSE 87; O2SAT 100; BMI 24.5
--- NOTE | 2024-04-11 09:53 | AM.OFFVISMDC ---
Intake Vital Signs 04/11/24 09:53 Height 5 ft 4 in Weight 143 lb BMI 24.5 BP 136/82 Blood Pressure Location Lt brachial Position Sitting Pulse 87 Pulse Source Pulse Oximeter Pulse Oximetry (%) 100 Oxygen Delivery Method Room Air Intake Visit Reasons: SWV Allergies silver [From TEGADERM AG MESH] Allergy (Mild, Verified 04/11/24 09:56) rash penicillin V Allergy (Unknown, Verified 04/11/24 09:56) anaphylaxis Penicillins [PENICILLINS] Allergy (Unknown, Verified 04/11/24 09:56) n/a Clindamycin HCl Allergy (Unknown, Uncoded 04/11/24 09:56) diarrhea Medication List - Last Reconciled 04/11/24 by Shavon Awad MD alendronate 70 mg PO QWEEK bisacodyl (Dulcolax (bisacodyl)) 10 mg (2 x 5 mg) PO ONCE 1 day cholecalciferol (vitamin D3) 50 mcg PO DAILY escitalopram oxalate 20 mg PO DAILY ketoconazole 2% 1 appl topical DAILY melatonin 9 mg PO BEDTIME PRN polyethylene glycol 3350 (Miralax) 238 grams PO ONCE rosuvastatin (Crestor) 10 mg PO BEDTIME 30 days HPI SWV HPI Details Initiated the conversation about Advanced Directives. Advanced Directives help? patients prepare for current and future decisions about their medical treatment? and place of care. Discussed with patient that it is a process where a patients? current condition and prognosis are reviewed, their wishes for information? regarding their illness are elicited, and likely medical dilemmas are presented? and options discussed. The form can be amended as needed, reviewed yearly and? make changes as needed IPPE/AWV ? year old presents? for her ? Annual? Wellness Visit, initial visit.? Medical / Social History Reviewed? Past Medical History ?Yes? . ? [place]? of Care / Care Team list updated ?Yes . ? Surgical/Hospitalization? History ?Yes . ? Current Medications? (including OTC and supplements) ?Yes . ? Family History ?Yes? . ? Tobacco? Control form ?Yes . ? AUDIT-C (Alcohol use) form? ?Yes . ? Illicit drug use in Social? History ?Yes . ? Current diagnosis of? depression? ?No ? Appropriate PHQ2/PHQ9? completed ?Yes . ? Data entered by ?Medical? Stage Producer and reviewed by provider ? Fall Risk ? Fall? History? Have you had any falls with? injury in the past year? ?No . ? Have you had two or more? falls in the past year? ?No . ? Fall Risk Assessment: ?No? falls in the past year . ? HRA filled out by? the patient, reviewed by Provider and scanned. ? IPPE/AWV ? Balance? [place]? ?Yes . ? Tandem? walk ?Yes . ? Walk and? Turn ?Yes . ? Rise from? sit to stand ?Yes . ?Vision? Corrective? lens ?Yes ? Vision? screen ? Up-to-date, has an appointment [] for vision? screening and glaucoma screening ?Hearing? Whisper? test ?pass .? Initiated the conversation about Advanced Directives. Advanced Directives help? patients prepare for current and future decisions about their medical treatment? and place of care. Discussed with patient that it is a process where a patients? current condition and prognosis are reviewed, their wishes for information? regarding their illness are elicited, and likely medical dilemmas are presented? and options discussed. The form can be amended as needed, reviewed yearly and? make changes as needed Written? Plan?Completed. See Patient? Documents. [facility] Medical History (Updated 04/11/24 @ 13:35 by Shavon Awad MD) Serrated adenoma of colon Arthralgia Depression Acute anxiety Somatic delusion IBS (irritable bowel syndrome) Surgical History H/O colonoscopy Family History Father No problems noted. Mother Leukemia Cancer Family/Other Lung cancer Social History Household Members: Spouse Household Members Other:: son comes every other weekend Housing: House Do you presently have visiting nurse or other home services: No (would like meals on wheels states limits food at the house .) Alcohol intake: never Comment: pt low risk for falls Patient Tobacco Use Status: Current everyday Tobacco user Tobacco use type: Cigarette Cigarette Packs Per Day: 0.5 Cigarettes Per Day: 5 Years Smoked: 20 e-Cigarette/Vaping Use: Never Used Second Hand Smoke Exposure: No Substance Use Type: Caffiene Advance Directives Date on File: 07/29/21 service: No Current occupational status: disabled Sexual orientation: Straight/Heterosexual Cognitive needs: No Hearing needs: No Vision needs: Yes Questionnaire Medicare Wellness Checkup [age] 65-69 What gender do you identify with?: female During the past 4 weeks, how much have you been bothered by emotional problems such as feeling anxious, depressed, irritable, sad or downhearted, and blue?: not at all During the past 4 weeks, has your physical & emotional health limited your social activities with family, friends, neighbors, or groups?: not at all During the past 4 weeks, how much bodily pain have you generally had?: no pain During the past 4 weeks, was someone available to help you if you needed & wanted help?: yes, as much as I wanted During the past 4 weeks, what was the hardest physical activity you could do for at least 2 minutes?: moderate Can you get to places out of walking distance without help? (For eg., can you travel alone on buses, taxis or drive your car?): Yes Can you go shopping for groceries or clothes without someone's help?: Yes Can you prepare your own meals?: Yes Can you do your housework without help?: Yes Because of any health problems, do you need the help of another person with your personal care needs such as eating, bathing, dressing or getting around the house?: No Can you handle your own money without help?: Yes During the past 4 weeks, how would you rate your health in general?: very good During the past 4 weeks how have things been going for you?: pretty well Are you having difficulties driving your car?: no Do you always fasten your seat belt when you are in a car?: yes, usually During past 4 weeks, have you been bothered by the following: never: Falling or dizzy when standing up, Sexual problems?, Trouble eating well?, Teeth or denture problems?, Problems using the telephone? and Tiredness or fatigue? Have you fallen 2 or more times in the past year?: No Are you afraid of falling?: No Are you a smoker?: yes, but I'm not ready to quit During the past 4 weeks, how many drinks of wine, beer, or other alcoholic beverages did you have?: no alcohol at all Do you exercise for about 20 minutes 3 or more times a week?: yes, most of the time Have you been given information to help with the following?: yes: Hazards in your house that might hurt you? and yes: Keeping track of your medications? How often do you have trouble taking medicines the way you have been told to take them?: I always take medicine as prescribed How confident are you that you can control & manage most of your health problems?: very confident What is your race?: White Mini Mental State Exam (MMSE) Orientation What is the (year) (season) (date) (day) (month)?: year, season, date, day and month Where are we (state) (county) (town or city) (hospital) (floor)?: state, county, town or city, hospital/clinic and floor Registration Name of 3 unrelated objects clearly and slowly, then ask patient to repeat all 3 of them. (1st repeat determines score. Make sure they can repeat all three): object 1, object 2 and object 3 Attention & Calculation (CHOOSE ONE) Spell WORLD backwards (DLROW): 5 letters Recall Ask patient to repeat the 3 items from question #3.: object 1, object 2 and object 3 Language Show patient a wristwatch & ask what it is. Repeat for pencil.: watch and pencil Ask the patient to repeat the phrase 'No ifs, ands, or buts' after you.: correct Ask the patient to 'take a piece of paper with their right hand' 'fold paper in half' 'place paper on floor': take paper in right hand, fold paper in half and place paper on floor Print the sentence 'CLOSE YOUR EYES' on a piece. If patient actually closes eyes then score.: followed written direction Give patient a blank piece of paper & ask to write a sentence. Score if it contains a noun & verb.: sentence contains subject and verb Score Score: 29 Activity of Daily Living Bathing - sponge bath, tub bath or shower: receives no assistance (gets in/out by self, if usual bathing means Dressing - getting clothes from closets & drawers, including inner/outer garments & fasteners.: gets clothes & gets completely dressed without help Toileting - going to the 'toilet room' for urine/bowel elimination & cleaning self/arranging clothes: goes to toilet room, cleans self, arranges clothes without help Transfer: moves in & out of bed and chair without help (may use support object) Continence: controls urination/bowel movements completely by self Feeding: feeds self without help Total Score: 0 Information obtained from: patient Using telephone: independent Traveling: independent Shopping: independent Preparing meals: independent Housework: independent Taking medicine: independent Managing money: independent PHQ-9 Over the last 2 weeks, how often have you been bothered by any of the following problems? 1. Little interest or pleasure in doing things: not at all 2. Feeling down, depressed, or hopeless: not at all 3. Trouble falling or staying asleep, or sleeping too much: not at all 4. Feeling tired or having little energy: not at all 5. Poor appetite or overeating: not at all 6. Feeling bad about yourself - or that you are a failure or have let yourself or your family down: not at all 7. Trouble concentrating on things, such as reading the newspaper or watching television: not at all 8. Moving or speaking so slowly that other people could have noticed. Or the opposite - being so fidgety or restless that you have been moving around a lot more than usual: not at all 9. Thoughts that you would be better off or of hurting yourself in some way: not at all Total score: 0 Depression Screening Interpretation: Negative Depression Screening Done: Yes Source: Developed by Drs. Byron Mark, Samantha Johnson, Pelon Herrera and colleagues, with an educational yanni from [employer]. Review of Systems Const All systems reviewed & are unremarkable except as noted in HPI and below Reports no additional complaints Eyes Reports no additional complaints ENT Reports no additional complaints Card Reports no additional complaints Resp Reports no additional complaints GI Reports no additional complaints Reports no additional complaints Physical Exam Vital Signs: Last Vital Signs Pulse 87 04/11/24 09:53 BP 136/82 04/11/24 09:53 Pulse Ox 100 04/11/24 09:53 Oxygen Delivery Method Room Air 04/11/24 09:53 BMI result Body Mass Index 24.5 Const General: no acute distress HEENT Head: Yes normal to inspection Eyes General: appearance normal, both eyes and all related structures Neck Neck: Yes no lymphadenopathy and Yes supple Resp Effort & Inspection: normal respiratory effort Auscultation: clear to auscultation bilaterally Cardio Rhythm: regular rhythm Heart sounds: S1 normal heart sound present and S2 normal heart sound present GI Inspection: Yes normal to inspection Palpation (GI): Soft to palpation Percussion: Yes normal to percussion Auscultation: normal bowel sounds Extrem General: Yes no clubbing, cyanosis or edema Assessment & Plan Assessment & Plan (1) Hyperlipidemia: Comment: Started Crestor 03/13 Code(s): E78.5 - Hyperlipidemia, unspecified Plan: Continue statin (2) Osteoporosis: Code(s): M81.0 - Age-related osteoporosis without current pathological fracture Plan: Continue Fosamax vitamin-D regular exercise repeat DEXA next year (3) Severe recurrent major depression with psychotic features: Comment: f/u with psychiatrist and therapist Code(s): F33.3 - Major depressive disorder, recurrent, severe with psychotic symptoms Plan: In remission established with a psychiatrist Orders: Orders Comprehensive Commerce. Panel Fast 1 Year E55.9 - Vitamin D deficiency, unspecified, E78.5 - Hyperlipidemia, unspecified, M81.0 - Age-related osteoporosis without current pathological fracture, Z00.00 - Encounter for general adult medical examination without abnormal findings, Z78.0 - Asymptomatic menopausal state Complete Blood Count Auto Diff 1 Year E55.9 - Vitamin D deficiency, unspecified, E78.5 - Hyperlipidemia, unspecified, M81.0 - Age-related osteoporosis without current pathological fracture, Z00.00 - Encounter for general adult medical examination without abnormal findings, Z78.0 - Asymptomatic menopausal state Lipid Panel 1 Year E55.9 - Vitamin D deficiency, unspecified, E78.5 - Hyperlipidemia, unspecified, M81.0 - Age-related osteoporosis without current pathological fracture, Z00.00 - Encounter for general adult medical examination without abnormal findings, Z78.0 - Asymptomatic menopausal state TSH reflex Free T4 1 Year E55.9 - Vitamin D deficiency, unspecified, E78.5 - Hyperlipidemia, unspecified, M81.0 - Age-related osteoporosis without current pathological fracture, Z00.00 - Encounter for general adult medical examination without abnormal findings, Z78.0 - Asymptomatic menopausal state Vitamin D 25-OH Total 1 Year E55.9 - Vitamin D deficiency, unspecified, E78.5 - Hyperlipidemia, unspecified, M81.0 - Age-related osteoporosis without current pathological fracture, Z00.00 - Encounter for general adult medical examination without abnormal findings, Z78.0 - Asymptomatic menopausal state XR DEXA axial skeleton 1 Year E55.9 - Vitamin D deficiency, unspecified, E78.5 - Hyperlipidemia, unspecified, M81.0 - Age-related osteoporosis without current pathological fracture, Z00.00 - Encounter for general adult medical examination without abnormal findings, Z78.0 - Asymptomatic menopausal state Medications: Changed From rosuvastatin (Crestor) 10 mg PO BEDTIME 30 days 90 tabs 3RF To rosuvastatin 10 mg PO BEDTIME 90 tabs 3RF Refilled alendronate 70 mg PO QWEEK 10 tabs 3RF Quality Reporting (2019) Depression/Bipolar (159/160/161/177) PHQ-9: Total score: 0 Coding Level of Care Code Medicare Subsequent (G0439) Diagnoses Hyperlipidemia E78.5 Osteoporosis M81.0 Severe recurrent major depression with psychotic features F33.3 CPT Codes Advance Care Planning - Advance Care Planning discussion: On file, no changes ([id number]) Advance Care Planning - Time spent: 1-15 minutes, on File ([id number]) Advance Care Planning Advance Care Planning discussion: On file, no changes Forms completed: Health Care Proxy Time spent: 1-15 minutes, on File Did not discuss due to Cultural/Spiritual beliefs: Yes
== END 2024-04-11 10:46 | disposition home or self-care (01) ==
PROVIDERS: PCP Internal Medicine; Visit Provider Internal Medicine
DX: Z00.00 Encounter for general adult medical examination without abnormal findings (principal); E78.5 Hyperlipidemia, unspecified; M81.0 Age-related osteoporosis without current pathological fracture; F33.3 Major depressive disorder, recurrent, severe with psychotic symptoms
CPT/HCPCS: 1123F; G0439

== ENCOUNTER 2024-08-01 14:37 | Outpatient (REF) | payer MEDICARE, SELFPAY ==
--- NOTE | ~2024-08-01 | MM_ITS ---
EXAMINATION: MM SCREENING DIGITAL BREAST TOMOSYNTHESIS, BILATERAL CLINICAL INFORMATION: Screening. Asymptomatic. COMPARISON: Mammography: Comparison is made with available priors TECHNIQUE: Digital breast mammography with tomosynthesis is performed in both the craniocaudal and mediolateral oblique views along with computer-aided detection (CAD). FINDINGS: There are scattered areas of fibroglandular density (ACR BI-RADS breast composition Category b). There are no significant masses, abnormal calcifications, or other abnormalities. MM/MM tomosynthesis screening BI IMPRESSION: No mammographic evidence of malignancy. ASSESSMENT: BI-RADS BI-RADS 1 - Negative RECOMMENDATION: Routine annual mammography screening. 1 year F/U This examination should not preclude the clinical evaluation of a suspicious palpable abnormality. This patient's information was entered into a reminder system with a target due date for their next mammogram. Electronically signed by: Stefanie Duron DO 08/10/2024 12:07 PM [facility]
== END 2024-08-01 14:38 | disposition home or self-care (01) ==
LOC: HO.MAMMO 14:37
PROVIDERS: PCP Internal Medicine; Visit Provider Internal Medicine
DX: Z12.31 Encounter for screening mammogram for malignant neoplasm of breast (principal)
CPT/HCPCS: 77063; 77067

== ENCOUNTER → 2024-08-01 14:45 | Outpatient (BNV) | payer MEDICARE, SELFPAY | PROVIDERS: PCP Internal Medicine; Visit Provider Internal Medicine | DX: Z12.31 Encounter for screening mammogram for malignant neoplasm of breast (principal) | CPT/HCPCS: 77063; 77067 ==

== ENCOUNTER 2025-04-11 08:01 | Outpatient (REF) | payer MEDICARE, SELFPAY ==
--- OUTSIDE RECORDS SUMMARY | 2025-03-06 05:00 | XMS_ITS ---
Author Organization [facility] Address [address] [place] [address] Care Team Providers Care Hand Picker Name Role Phone Shavon Awad MD Primary Care Provider Unavaila ble Black, Jody Unavailable [phone] Allergies Allergen (clinical drug ingredient) Drug/Non Drug [...] Active Encounters Encounter Location Date Provider Diagnosis [facility] [place] [address] [place] [address] 03/06/2025 Jody Darien Plan Of Treatment Next Appt Details Provider Name:Jody Ledezma , 05/11/2025 03:00:00 PM, [address] [place], [address], Progress Notes * Corinna LAWSON ADOB:1955 (69 yo F)Acc No.[id number]:03/06/2025 Progress Note Patient: Mariya CARRINGTONREGDonaldCorinna Charles Provider: Robin Ledezma DPM :1955 A ge:69 Y S ex:Female Date:03/06/2025 Address:[address] [place], [place] [id number] Pcp:Shavon Awad MD Subjective: * Chief Complaints: [...] 03/06/2025 Generated for Julio Sharpe/Janet on: 0 04/11/2025 08:05 AM EDT
--- NOTE | ~2025-04-11 | MM_ITS ---
EXAMINATION: DXA BONE DENSITY AXIAL HISTORY: M81.0 - Age-related osteoporosis without current pathological fracture TECHNIQUE: [employer] Dual energy absorptiometry (DEXA) of the lumbar spine, total left hip, and femoral neck was performed. COMPARISON: Comparison is made with the prior examination dated 03/10/2023. FINDINGS: The bone mineral density of the lumbar spine is 0.892 g/cm2, corresponding to a T-score of -2.4, and a Z-score of -0.6. This is indicative of osteopenia. This represents a BMD change of -3.1% compared to the prior exam. This is statistically significant. The bone mineral density of the left total hip is 0.648 g/cm2, corresponding to a T-score of -2.9, and a Z-score of -1.3. This is indicative of osteoporosis. This represents a BMD change of 1.3% compared to the prior exam. This is not statistically significant. The bone mineral density of the left femoral neck is 0.653 g/cm2, corresponding to a T-score of -2.8, and a Z-score of -1.0. This is indicative of osteoporosis. This represents a BMD change of 6.7% compared to the prior exam. MM/XR DEXA axial skeleton IMPRESSION: Based on bone mineral density, and according to World Health Organization (WHO) criteria, the diagnosis is consistent with osteoporosis. Statistically, 68% of repeat scans fall within 1 SD (+/- 0.010 g/cm2 for AP spine L1-L4) and 1 SD (+/- 0.012 g/cm2 for femur total) FRAX is a trademark of the [employer] [place] [employer] Metabolic Bone Disease, a World Health Organization (WHO) Collaborating Center. Electronically signed by: Byron Menard MD 04/11/2025 09:29 AM EDT
== END 2025-04-11 08:02 | disposition home or self-care (01) ==
LOC: HO.MAMMO 08:01
PROVIDERS: PCP Internal Medicine; Visit Provider Internal Medicine
DX: M81.0 Age-related osteoporosis without current pathological fracture (principal); Z78.0 Asymptomatic menopausal state; E78.5 Hyperlipidemia, unspecified; E55.9 Vitamin D deficiency, unspecified
CPT/HCPCS: 77080

== ENCOUNTER → 2025-04-11 08:15 | Outpatient (BNV) | payer MEDICARE, SELFPAY | PROVIDERS: PCP Internal Medicine; Visit Provider Radiology Diagnostic Radiology | DX: E28.39 Other primary ovarian failure (principal) | CPT/HCPCS: 77080 ==

== ENCOUNTER 2025-05-27 08:16 | Outpatient (REF) | payer MEDICARE, SELFPAY ==
--- OUTSIDE RECORDS SUMMARY | 2025-03-06 05:00 | XMS_ITS ---
Author Organization [facility] Address [address] [facility] [address] Care Team Providers Care Perishable Fruit Inspector Name Role Phone Shavon Awad MD Primary Care Provider Unavaila ble Black, Jody Unavailable [phone] Allergies Allergen (clinical drug ingredient) Drug/Non Drug [...] Active Encounters Encounter Location Date Provider Diagnosis [facility] [place] [address] [place] [address] 03/06/2025 Jody Darien Plan Of Treatment Next Appt Details Provider Name:Joydrenay Ledezma , 10/02/2025 08:30:00 AM, [address] [place], [address], Progress Notes * Corinna LAWSON ADOB:1955 (69 yo F)Acc No.[id number]:03/06/2025 Progress Note Patient: Mariya CARRINGTONREGDonaldCorinna Charles Provider: Robin Ledezma DPM :1955 A ge:69 Y S ex:Female Date:03/06/2025 Address:[address] [place], [place] [id number] Pcp:Shavon Awad MD Subjective: * Chief Complaints: [...] DPM Date: 0 03/06/2025 Generated for Julio joyner/Odalys/Janet on: 0 05/27/2025 08:20 AM EDT
--- OUTSIDE RECORDS SUMMARY | 2025-05-27 08:21 | XMS_ITS | Patient Health Record ---
Author Organization [facility] Address [address] [place] [address] Care Team Providers Care Bulkhead Carpenter Name Role Phone Shavon Awad MD Primary Care Provider Unavaila cristi Ledezma Jody Unavailable [phone] Allergies Allergen (clinical drug ingredient) Drug/Non Drug Allergy documented on EMR Reaction Allergy Type Onset Date Status clindamycin Clindamycin diarrhea Drug Allergy Act rosalio Penicillin Anaphylaxis Drug Allergy Acti ve Silver Silver rash Allergy Active Reason For Referral No Information Medications Medication SIG (Take, Route, Frequency, Duration) Notes Start Date End Date Status Rosuvastatin Calcium 10 MG 1 tablet Orally Once a day; Duration: 30 day(s) Active Erythromycin 250 MG 1 tablet Orally Twic e a day; Duration: 10 days 08/06/2023 Not-Takin g Ketoconazole 2 % 1 application Apply a thin layer to externally to feet, even between toes Twice a day; Duration: 30 days Active Vitamin D Active Ketoconazole 2 % 1 application Externally Once a day; Duration: 14 days Not-Taking Vitamin B12 Active Azithromycin 1 GM as directed Orally a s directed; Duration: 5 days Active QUEtiapine Fumarate 200 MG as directed Orally Not-Takin g Melatonin 3 MG as directed Once a day Active Thiamine HCl 100 MG 1 tablet Orally Once a day; Duration: 30 day(s) Not-Taking Formula 7 Rapid MicroGel 1 % 1 application Externally Once a day Active hydrOXYzine Pamoate Not-Taking Alendronate Sodium 70 MG 1 tablet 30 min utes before the first food, beverage or medicine of the day with plain water Orally; Duration: 30 day(s) Active Gabapentin 100 MG 1 capsule Orally Onc e a day; Duration: 30 day(s) Not-Taking Multivitamin Active Escitalopram Oxalate 20 MG as directed Orally Active Zithromax Z-Feliciano 250 MG as directed Orall y as direct; Duration: 5 days 05/30/2024 Not-Taking Zithromax Z-Feliciano 250 MG as directed Orall y as directed; Duration: 5 days 05/30/2024 Not-Taking Immunizations Vaccine Route Administration Date Status Comme nts Influenza Unknown 05/22/2024 Administered Social History Tobacco Use: Social History Observation Description Date Details (start date - stop date) Current Smoker NA - NA Tobacco Use/Smoking Question Answer Notes Are you a: current smoker How often do you smoke cigarettes? every day How many cigarettes a day do you smoke? 5 or les s How soon after you wake up do you smoke your fir st cigarette? 6-30 minutes Alcohol Screen Question Answer Notes Did you have a drink containing alcohol in the p ast year? No Points 0 Interpretation Negative Tobacco use other than smoking: Question Answer Notes Are you an other tobacco user? No AUDIT-C (Standard) Question Answer Notes Did you have a drink containing alcohol in the p ast year? No Points 0 Interpretation Negative Vital Signs Blood pressure diastolic 80 mm Hg 05/11/2025 Height 5ft4.5in in 05/11/2025 Blood pressure systolic 125 mm Hg 05/11/2025 Weight 135 lbs 05/11/2025 BMI 22.81 kg/m2 05/11/2025 Procedures Procedure Date Ordered Date Performed Result Body Sit e 99407-NTEGJUV NAIL, 6 OR MORE 05/30/2024 N/A 74068- Debride <25 sq cm 05/30/2024 N/A 86079-FYXYXWR NAIL, 6 OR MORE 10/06/2024 N/A 93534-RSAMFGQ NAIL, 6 OR MORE 11/28/2024 N/A 68662 I&D ABSCESS- SIMPLE,SINGLE 11/28/2024 N/A 35644-OCVRDEM NAIL, 6 OR MORE 05/11/2025 N/A Encounters Encounter Location Date Provider Diagnosis [facility] [place] [address] [place] [address] 05/30/2024 Jody Black Skin ulcer of toe of right foot, limited to breakdown of skin L97.511 ; Tinea unguium B35.1 ; Pain in right toe(s) M79.674 ; Pain in left toe(s) M79.675 ; Cellulitis of right foot L03.115 and Ulcer of right foot, limited to breakdown of skin L97.[address] [address] 06/23/2024 Jody Black Skin ulcer of toe of right foot, limited to breakdown of skin L97.511 and Cellulitis of right foot L03.[address] [address] 10/06/2024 Jody Black Cellulitis of right foot L03.115 ; Tinea unguium B35.1 ; Pain in right toe(s) M79.674 ; Pain in left toe(s) M79.675 ; Cutaneous abscess of right foot L02.611 and Pain of right heel M79.[address] [address] 11/28/2024 Jody Black Tinea unguium B35.1 ; Cutaneous abscess of right foot L02.611 ; Pain in right toe(s) M79.674 ; Pain in left toe(s) M79.675 and Pain of right heel M79.[address] [address] 05/11/2025 Jody Black Tinea pedis of both feet B35.3 ; Cutaneous abscess of right foot L02.611 ; Tinea unguium B35.1 ; Pain in right toe(s) M79.674 and Pain in left toe(s) M79.[address] [address] 05/30/2024 Jody Black [address] [address] 06/23/2024 Jody Black [address] [address] 11/28/2024 Jody Black [facility] [address] [address] 01/11/2025 Jodyleona Ledezma [facility] [address] [address] 02/27/2025 Jodyleona Ledezma [facility] [address] [address] 05/10/2025 Jody Ledezma Assessments Encounter Date Diagnosis (ICD Code) Assessment Notes Treatment Notes Treatment Clinical Notes Section Notes 05/30/2024 Tinea unguium (ICD-10 - B35.1) 06/23/2024 Cellulitis of right foot (ICD-10 - L03.115) Response to treatment,Resol buzz 06/23/2024 Skin ulcer of toe of right foot, limited to breakdown of skin (ICD-10 - L97.511) Response to treatment,,Reso lved 10/06/2024 Tinea unguium (ICD-10 - B35.1) 10/06/2024 Cellulitis of right foot (ICD-10 - L03.115) 11/28/2024 Tinea unguium (ICD-10 - B35.1) 05/30/2024 Skin ulcer of toe of right foot, limited to breakdown of skin (ICD-10 - L97.511) Response to treatment,Nonap plicable Patient Educated with: WOUND CARE INSTRUCTIONS.p df (WOUND CARE INSTRUCTIONS.p df) 11/28/2024 Cutaneous abscess of right foot (ICD-10 - L02.611) 05/11/2025 Cutaneous abscess of right foot (ICD-10 - L02.611) 05/11/2025 Tinea pedis of both feet (ICD-10 - B35.3) Patient Educated with: ATHELETE .pdf (ATHELETE .pdf) 05/11/2025 Tinea unguium (ICD-10 - B35.1) 11/28/2024 Pain in right toe(s) (ICD-10 - M79.674) 10/06/2024 Pain in right toe(s) (ICD-10 - M79.674) 05/30/2024 Pain in right toe(s) (ICD-10 - M79.674) 05/30/2024 Pain in left toe(s) (ICD-10 - M79.675) 10/06/2024 Pain in left toe(s) (ICD-10 - M79.675) 11/28/2024 Pain in left toe(s) (ICD-10 - M79.675) 05/11/2025 Pain in right toe(s) (ICD-10 - M79.674) 05/11/2025 Pain in left toe(s) (ICD-10 - M79.675) 11/28/2024 Pain of right heel (ICD-10 - M79.671) 10/06/2024 Cutaneous abscess of right foot (ICD-10 - L02.611) 05/30/2024 Cellulitis of right foot (ICD-10 - L03.115) 10/06/2024 Pain of right heel (ICD-10 - M79.671) 05/30/2024 Ulcer of right foot, limited to breakdown of skin (ICD-10 - L97.511) Response to treatment,Nonap plicable 05/30/2024 Other 06/23/2024 Other Plan Of Treatment Pending Test Test Name Order Date [id number]-CRSQTRC NAIL, 6 OR MORE 05/12/2022 00137-YUTJHQM NAIL, 6 OR MORE 08/11/2022 77473-WRLCJPV NAIL, 6 OR MORE 12/15/2022 93760-ZFBQRII NAIL, 6 OR MORE 03/30/2023 25265-YCETIVA NAIL, 6 OR MORE 08/03/2023 69738-MNHXNNL NAIL, 6 OR MORE 11/16/2023 49920-UJLXZNF NAIL, 6 OR MORE 05/30/2024 45430-RABERQW NAIL, 6 OR MORE 10/06/2024 38903-ZYSGNGE NAIL, 6 OR MORE 11/28/2024 52754-XMKJGXA NAIL, 6 OR MORE 05/11/2025 83421- Debride <25 sq cm 05/30/2024 46183- Debride <25 sq cm 12/15/2022 97536- Debride <25 sq cm 08/11/2022 64941 I&D ABSCESS- SIMPLE,SINGLE 025 29488 - Shave Biopsy of Skin Lesion 07/22 Next Appt Details Provider Name:Jody Ledezma , 10/02/2025 08:30:00 AM, [address] [facility], [place], [address], Insurance Providers Payer Name Payer Address Payer Phone Subscriber Number Group Number Insured Name Patient Relationship to Insured Coverage Start Date Coverage End Date Medicare National Govt [facility] [address] [facility] [place] [address] [id number] Corinna Lawson Self - patient is the insured Med Blue [facility] [address] [place] [address] [id number] Corinna Lawson Self - patient is the insured Medical (General) History Medical History History ICD Code Anxiety Depression somatic delusion Headaches/Migraines Measles Mumps Chicken pox Visceral Hypersensitivity Surgical History Surgery Date(Month/Year) tonsillectomy teeth extraction colonoscopy endoscopy
[2025-05-27 11:09] LABS: MANUAL DIFF FLAG NO
[2025-05-27 11:11] LABS: Hematocrit 39.8 % (37.0-47.0); Hemoglobin 13.7 g/dl (12.0-16.0); Imm Gran Abs Auto 0.01 X10*3/uL (0.00-0.03); Imm Gran Pct Auto 0.2 % (0.0-0.4); Lymphocytes Absolute Auto 1.1 X10*3/uL (1.2-4.9); Mean Corpuscular HGB Conc 34.4 g/dl (31.0-35.0); Mean Corpuscular Hemoglobin 32.6 pg (27.0-33.0); Mean Corpuscular Volume 94.8 fL (80.0-98.0); NRBC Abs Auto 0.000 X10*3/uL (0.0-0.012); NRBC Pct Auto 0.0 /100WBC (0.0-0.2); Platelet Count 179 X10*3/uL (160-400); Red Blood Count 4.20 X10*6/uL (4.20-5.50); White Blood Count 4.5 X10*3/uL (4.8-10.8)
[2025-05-27 11:43] LABS: Alanine Aminotransferase 12 U/L (0-31); Albumin Level 4.4 g/dL (3.5-5.0); Alkaline Phosphatase 40 U/L (39-117); Anion Gap 12 (12-20); Aspartate Amino Transferase 22 U/L (5-31); Blood Urea Nitrogen 16 mg/dL (9-16); Calcium 9.7 mg/dL (8.4-10.2); Carbon Dioxide 28 mmol/L (22-29); Chloride 103 mmol/L (96-108); Cholesterol 160 mg/dL (<200); Estimated Glomerular Filt Rate > 60; HDL Cholesterol 68 mg/dL (>40); Potassium 4.0 mmol/L (3.3-5.1); Sodium 139 mmol/L (135-145); Total Protein 6.9 g/dL (6.5-8.0); Triglycerides 81 mg/dL (<150)
== END 2025-05-27 08:17 | disposition home or self-care (01) ==
LOC: HO.HMGCLDS 08:16
PROVIDERS: PCP Internal Medicine; Visit Provider Internal Medicine
DX: Z00.00 Encounter for general adult medical examination without abnormal findings (principal); M81.0 Age-related osteoporosis without current pathological fracture; E78.5 Hyperlipidemia, unspecified; E55.9 Vitamin D deficiency, unspecified; Z78.0 Asymptomatic menopausal state
CPT/HCPCS: 36415; 80053; 80061; 82306; 84443; 85025

== ENCOUNTER 2025-05-29 06:25 | Day surgery (SDC) | payer MEDICARE, SELFPAY ==
--- NOTE | 2025-05-26 10:53 | HO.ANESPROP2 ---
Documented by User: Kelsy Gibbs NP 05/26/25 10:53 HPI - Anesthesia Eval Consult details Narrative: 69 yr old female for colonoscopy PMFSH Active Problems Active Problems: All Active Problems (Updated 04/11/24 @ 13:35 by Shavon Awad MD) Osteoporosis (Acute) Hyperlipidemia (Acute) Postmenopausal (Acute) Vitamin D deficiency (Acute) Callus of foot (Acute) Severe recurrent major depression with psychotic features (Acute) Colonoscopy refused (Acute) Annual physical exam (Acute) Serrated adenoma of colon (Acute) Arthralgia (Acute) Somatic symptom disorder, severe (Acute) IBS (irritable bowel syndrome) (Acute) Past Medical History Medical History (Updated 05/29/25 @ 07:26 by Bruna Willis RN) History of electroconvulsive therapy Serrated adenoma of colon Arthralgia Depression Acute anxiety Somatic delusion IBS (irritable bowel syndrome) Family History Family History Father No problems noted. Mother Leukemia Cancer Family/Other Lung cancer Surgical History Surgical History H/O colonoscopy Social History Social History Household Members: Spouse Household Members Other:: son comes every other weekend Housing: House Are you a primary disabilities caregiver to a significant other at home: No Do you presently have visiting nurse or other home services: No Alcohol intake: never Comment: pt low risk for falls Patient Tobacco Use Status: Current everyday Tobacco user Tobacco use type: Cigarette Cigarette Packs Per Day: 0.5 Cigarettes Per Day: 5 Years Smoked: 20 Smoked in Last 30 Days: Yes e-Cigarette/Vaping Use: Never Used Patient Interested in Nicotine Replacement: No Second Hand Smoke Exposure: No Substance Use Type: Caffiene Have you been hit, kicked, punched, or otherwise hurt by someone within the past year? If so, by whom?: No Are you DNR?: No Advance Directives: No Advance Directives Information Provided: Yes Advance Directives Date on File: 07/29/21 Poor oral hygiene: No service: No Current occupational status: disabled Sexual orientation: Straight/Heterosexual Cognitive needs: No Hearing needs: No Vision needs: Yes Meds Allergies Allergy/AdvReac Type Severity Reaction Status Date / Time silver (From TEGADERM AG Allergy Mild rash Verified 05/29/25 07:27 MESH) penicillin V Allergy Unknown anaphylaxis Verified 05/29/25 07:27 Penicillins (PENICILLINS) Allergy Unknown n/a Verified 05/29/25 07:27 Clindamycin HCl Allergy Unknown diarrhea Uncoded 05/29/25 07:27 Home Medications ?Medication ?Instructions ?Recorded ?Confirmed ?Last Taken ?Type melatonin 3 mg tablet 9 mg PO BEDTIME PRN insomnia 10/31/21 05/29/25 Unknown History escitalopram oxalate 20 mg tablet 20 mg PO DAILY 03/10/22 05/29/25 Unknown History Documented by User: Iris Castillo MD 05/29/25 07:57 [facility] Past Medical History Medical History (Updated 05/29/25 @ 07:26 by Bruna Willis RN) History of electroconvulsive therapy Serrated adenoma of colon Arthralgia Depression Acute anxiety Somatic delusion IBS (irritable bowel syndrome) Family History Family History Father No problems noted. Mother Leukemia Cancer Family/Other Lung cancer Family history of problems with anesthesia: No Surgical History Surgical History H/O colonoscopy History of Problems with Anesthesia: No Social History Social History Household Members: Spouse Household Members Other:: son comes every other weekend Housing: House Are you a primary disabilities caregiver to a significant other at home: No Do you presently have visiting nurse or other home services: No Alcohol intake: never Comment: pt low risk for falls Patient Tobacco Use Status: Current everyday Tobacco user Tobacco use type: Cigarette Cigarette Packs Per Day: 0.5 Cigarettes Per Day: 5 Years Smoked: 20 Smoked in Last 30 Days: Yes e-Cigarette/Vaping Use: Never Used Patient Interested in Nicotine Replacement: No Second Hand Smoke Exposure: No Substance Use Type: Caffiene Have you been hit, kicked, punched, or otherwise hurt by someone within the past year? If so, by whom?: No Are you DNR?: No Advance Directives: No Advance Directives Information Provided: Yes Advance Directives Date on File: 07/29/21 Poor oral hygiene: No service: No Current occupational status: disabled Sexual orientation: Straight/Heterosexual Cognitive needs: No Hearing needs: No Vision needs: Yes Meds Allergies Allergy/AdvReac Type Severity Reaction Status Date / Time silver (From TEGADERM AG Allergy Mild rash Verified 05/29/25 07:27 MESH) penicillin V Allergy Unknown anaphylaxis Verified 05/29/25 07:27 Penicillins (PENICILLINS) Allergy Unknown n/a Verified 05/29/25 07:27 Clindamycin HCl Allergy Unknown diarrhea Uncoded 05/29/25 07:27 Home Medications ?Medication ?Instructions ?Recorded ?Confirmed ?Last Taken ?Type melatonin 3 mg tablet 9 mg PO BEDTIME PRN insomnia 10/31/21 05/29/25 Unknown History escitalopram oxalate 20 mg tablet 20 mg PO DAILY 03/10/22 05/29/25 Unknown History Exam Airway Mallampati Class: II (implants and caps through out) TM Dist: >3cm Neck ROM: Full Heart: rrr Lungs: cta Assessment and Plan Assessment Anesthesia Assessment: Anesthesia Plan Discussed and Chart Reviewed Final Anesthetic Review Family History of Problems with Anesthesia: No History of Problems with Anesthesia: No NPO: Yes ASA Class: II Final Preanesthetic Review: No Changes in Pt Med Stat, Meds/Allgs Chart Reviewed and Consent Obtained/Reviewed Patient Risk: Low Procedure Risk: Low Anesthetic Plan Anesthetic Plan: MAC: Disposition: Standard PACU
[2025-05-29 07:09] VITALS: BMI 22.8
[2025-05-29] MEDS: Lactated Ringers 1,000 ML 100 ML IVCONT (07:15)
[2025-05-29 07:24] VITALS: BP 146/79; PULSE 75; RESP 18; TEMP 36.7; O2SAT 99
--- NOTE | 2025-05-29 07:26 | MHC.SHP ---
Pre-Procedural Eval Section A - 24 Hr Update-Section A only Date of Service: 05/29/25 The patient is an INPATIENT: No The patient has been examined within 24 hours of the surgical procedure. The History & Physical has been completed within 30 days and I have reviewed it.: No Section B - Complete if H&P > 30 days Chief Complaint: Surveillance for colon polyps Relevant Family History (Specify if Yes): No Relevant Social History: Tobacco Use Present Medications: see Short Stay Collaborative assessment Medical History: Significant History (Serrated adenoma of colon Acute psychosis Arthralgia Depression Acute anxiety Somatic delusion IBS (irritable bowel syndrome)) History of Previous Operations: Relevant previous surgery/procedure and date(s) (History of colonoscopy) Allergies: Allergies Allergy/AdvReac Type Severity Reaction Status Date / Time silver (From TEGADERM AG Allergy Mild rash Verified 04/11/24 09:56 MESH) penicillin V Allergy Unknown anaphylaxis Verified 04/11/24 09:56 Penicillins (PENICILLINS) Allergy Unknown n/a Verified 04/11/24 09:56 Clindamycin HCl Allergy Unknown diarrhea Uncoded 04/11/24 09:56 Review of Systems Sugical H&P ROS: Negative: Constitution, Cardiovascular, Respiratory and Gastrointestinal Exam Surgical H&P Exam: Normal: Heart, Normal: Lungs, Normal: Extremities and Normal: Abdomen Plan Diagnosis/Plan: Unchanged I have reviewed the history and physical and performed a pertinent physical examination on my patient. No changes have occurred unless specified. Time Spent With Patient Time: Total time managing care of this patient today ____ minutes.
--- NOTE | 2025-05-29 09:28 | P.OPN-COLO_ITS ---
Colonoscopy Operative Note Operative Note Date of Service: 05/29/25 Narrative: COLONOSCOPY TILL CECUM WITH SNARE POLYPECTOMY, SUBMUCOSAL INJECTION AND HEMOCLIP PLACEMENT Pre-op diagnosis: Surveillance for colon polyps, positive Cologuard test (last colon in 2016). Post-op diagnosis:? Colon polyps, Diverticulosis. Endoscopist:Radha Abreu MD Anesthesia:?MAC Consent: Indications for the procedure and potential complications of bleeding, perforation, reaction to medications and missed diagnosis were discussed with the patient and informed consent was obtained. Instrument: Olympus PCF H 190 L variable stiffness pediatric colonoscope Monitoring: Vital signs and clinical assessment, intermittent blood pressure monitoring, continuous EKG monitoring, Pulse oximetry and Carbon Dioxide monitoring were done throughout the procedure. Please see anesthesia flowsheet. Colon withdrawl time was 32 minutes. Procedure: The patient was placed in the left lateral decubitis position and pre-procedure medications were administered. After a digital rectal examination of the ano-rectum, the video colonoscope was inserted into the rectum and advanced through the colon to the cecum. The colonoscope was slowly withdrawn in a retrograde panoramic fashion and the colon mucosa was carefully examined including a retroflexed view of the rectum. Findings and interventions are described below. Procedure Difficulty: Colon was long and there was some loop formation Findings: Terminal Ileum: Not evaluated Cecum: A 12-15 mm flat polyp - raised with 3 cc of Elview and removed with a stiff hot snare Ascending Colon: A 2 cms flat polyp in the proximal AC at 80 cms (opposite the ileocecal valve). Polyp was raised with 4 cc of Eleview and removed with a stiff hot snare. Polypectomy site was closed with 2 hemoclips and marked with Nancy ink A 3.5 cms flat polyp at 75 cms - polyp was raised with 5 cc of Eleview and removed with a stiff hot snare. Polypectomy site was closed with 3 hemoclips and marked with Nancy ink Transverse Colon: Normal Descending Colon: Normal Sigmoid Colon: Moderate diverticulosis Rectum: Normal Ano-rectum: Normal Colon preparation: Good after some irrigation. [place] Bowel Preparation Scale Right colon; 2 Transverse colon: 2 Left colon; 2 (0 = Unprepared colon segment with mucosa not seen due to solid stool that cannot be cleared. 1 = Portion of mucosa of the colon segment seen, but other areas of the colon segment not well seen due to staining, residual stool and/or opaque liquid. 2 = Minor amount of residual staining, small fragments of stool and/or opaque liquid, but mucosa of colon segment seen well. 3 = Entire mucosa of colon segment seen well with no residual staining, small fragments of stool or opaque liquid) Impression and Post Procedure Diagnosis: Colonoscopy Findings: Three medium to large sized polyps were removed A few additional smaller polyps in the right colon and rectum were not removed due to excessive length of the procedure Moderate diverticulosis seen in the sigmoid colon Plan: I will send a letter with biopsy results Repeat Colonoscopy in 6 months if polyps are adenomatous and 3 year if polyps are hyperplastic. Above findings were reviewed with the patient and relevant handouts were given and the discharge area. BIOPSIES SHOWED: A. Colon, cecum, polypectomy: Sessile serrated polyp/lesion without dysplasia. B. Colon, ascending polyp #1, polypectomy: Sessile serrated polyp/lesion without dysplasia. C. Colon, ascending polyp #2, polypectomy: Sessile serrated polyp/lesion without dysplasia. Letter sent with the patient with biopsy results. Patient was placed on the colonoscopy recall list for repeat colonoscopy in 6 months.
[2025-05-29 09:30] VITALS: BP 107/55; PULSE 71; RESP 18; TEMP 36.2; O2SAT 97
[2025-05-29 09:45] VITALS: BP 115/82; PULSE 80; RESP 16; TEMP 36.1; O2SAT 96
== END 2025-05-29 10:44 ==
PROVIDERS: PCP Internal Medicine; Visit Provider Internal Medicine Gastroenterology
PROC: 0DJD8ZZ Inspection of Lower Intestinal Tract, Via Natural or Artificial Opening Endoscopic (ICD-10-PCS; CPT 45378; principal; 2025-05-29 08:30)
DX: Z12.11 Encounter for screening for malignant neoplasm of colon (principal); D12.0 Benign neoplasm of cecum; D12.2 Benign neoplasm of ascending colon; K56.2 Volvulus; K57.30 Diverticulosis of large intestine without perforation or abscess without bleeding; Z86.0101 Personal history of adenomatous and serrated colon polyps; E55.9 Vitamin D deficiency, unspecified; F17.210 Nicotine dependence, cigarettes, uncomplicated
CPT/HCPCS: 45385; 45381; 88305; J2003; J2704

== ENCOUNTER → 2025-05-29 06:25 | Outpatient (BNV) | payer MEDICARE, SELFPAY | PROVIDERS: PCP Internal Medicine; Visit Provider Internal Medicine Gastroenterology | DX: Z12.11 Encounter for screening for malignant neoplasm of colon (principal); R19.5 Other fecal abnormalities; D12.0 Benign neoplasm of cecum; D12.2 Benign neoplasm of ascending colon; K57.30 Diverticulosis of large intestine without perforation or abscess without bleeding; Z86.0100 Personal history of colon polyps, unspecified | CPT/HCPCS: 45381; 45385 ==

== ENCOUNTER 2025-06-02 12:45 | Outpatient (AMB) | payer MEDICARE, SELFPAY ==
--- OUTSIDE RECORDS SUMMARY | 2025-03-06 05:00 | XMS_ITS ---
Author Organization [facility] Address [address] [place] [address] Care Team Providers Care Machinist Apprentice Wood Name Role Phone Shavon Awad MD Primary Care Provider Unavaila ble Black, Jody Unavailable [phone] Allergies Allergen (clinical drug ingredient) Drug/Non Drug Allergy documented on EMR Reaction Allergy Type Onset Date Status clindamycin Clindamycin diarrhea Drug Allergy Act rosalio Penicillin Anaphylaxis Drug Allergy Acti ve Silver Silver rash Allergy Active Medications Medication SIG (Take, Route, Frequency, Duration) Notes Start Date End Date Status Multivitamin Active Vitamin B12 Active Vitamin D Active Rosuvastatin Calcium 10 MG 1 tablet Orally Once a day; Duration: 30 day(s) Active Alendronate Sodium 70 MG 1 tablet 30 min utes before the first food, beverage or medicine of the day with plain water Orally; Duration: 30 day(s) Active Formula 7 Rapid MicroGel 1 % 1 application Externally Once a day Active Melatonin 3 MG as directed Once a day Active Azithromycin 1 GM as directed Orally a s directed; Duration: 5 days Active Ketoconazole 2 % 1 application Externally Once a day; Duration: 14 days Not-Taking Erythromycin 250 MG 1 tablet Orally Twic e a day; Duration: 10 days 08/06/2023 Not-Takin g hydrOXYzine Pamoate Not-Taking Thiamine HCl 100 MG 1 tablet Orally Once a day; Duration: 30 day(s) Not-Taking QUEtiapine Fumarate 200 MG as directed Orally Not-Takin g Zithromax Z-Feliciano 250 MG as directed Orall y as directed; Duration: 5 days 05/30/2024 Not-Taking Gabapentin 100 MG 1 capsule Orally Onc e a day; Duration: 30 day(s) Not-Taking Zithromax Z-Feliciano 250 MG as directed Orall y as direct; Duration: 5 days 05/30/2024 Not-Taking Escitalopram Oxalate 20 MG as directed Orally Active Encounters Encounter Location Date Provider Diagnosis [facility] [place] [address] [place] [address] 03/06/2025 Jody Darien Plan Of Treatment Next Appt Details Provider Name:Jodyrenay Ledezma , 10/02/2025 08:30:00 AM, [address] [place], [address], Progress Notes * Corinna LAWSON ADOB:1955 (69 yo F)Acc No.[id number]:03/06/2025 Progress Note Patient: Mariya CARRINGTONREGDonaldCorinna Charles Provider: Robin Ledezma DPM :1955 A ge:69 Y S ex:Female Date:03/06/2025 Address:[address] [place], [place] [address] Pcp:Shavon Awad MD Subjective: * Chief Complaints: * * Medical History: A nxiety, Depression, Somatic delusion, Headaches/Migraines, Measles, Mumps, Chicken pox, Visceral Hypersensitivity. * Medications: T aking Azithromycin 1 GM Packet as directed Orally as directed , Taking Melatonin 3 MG Capsule as directed Once a day , Taking Formula 7 Rapid MicroGel 1 % Gel 1 application Externally Once a day , Taking Alendronate Sodium 70 MG Tablet 1 tablet 30 minutes before the first food, beverage or medicine of the day with plain water Orally , Taking Rosuvastatin Calcium 10 MG Tablet 1 tablet Orally Once a day , Taking Vitamin D , Taking Vitamin B12 , Taking Multivitamin , Taking Escitalopram Oxalate 20 MG Tablet as directed Orally , Not-Taking/PRN Zithromax Z-Feliciano 250 MG Tablet as directed Orally as direct , Not-Taking/PRN Zithromax Z-Feliciano 250 MG Tablet as directed Orally as directed , Not-Taking/PRN QUEtiapine Fumarate 200 MG Tablet as directed Orally , Not-Taking/PRN Thiamine HCl 100 MG Tablet 1 tablet Orally Once a day , Not-Taking/PRN hydrOXYzine Pamoate , Not-Taking/PRN Gabapentin 100 MG Capsule 1 capsule Orally Once a day , Not-Taking/PRN Erythromycin 250 MG Tablet Delayed Release 1 tablet Orally Twice a day , Not-Taking/PRN Ketoconazole 2 % Cream 1 application Externally Once a day * Allergies: S ilver: rash, Penicillin: Anaphylaxis, Clindamycin: diarrhea. Objective: * Vitals: Assessment: Plan: * Treatment: * Images: * The named appointment provid er may or may not be the originator of this progress note, and it is not deemed complete until electronically signed by the appointment provider. Sign off status: Pending * Provider: Robin Ledezma DPM Date: 0 03/06/2025 Generated for Julio Sharpe/Janet on: 0 06/02/2025 03:04 PM EDT
--- NOTE | 2025-06-02 13:10 | AM.OFFVISMDC ---
Intake Vital Signs 06/02/25 13:12 Height 5 ft 4 in Weight 133 lb BMI 22.8 BP 128/82 Blood Pressure Location Lt brachial Position Sitting Respiration 18 Pulse 57 Pulse Source Pulse Oximeter Temp 98.1 F Temp Source Oral Pulse Oximetry (%) 99 Oxygen Delivery Method Room Air Intake Visit Reasons: AWV Intake Note: Pt is here today for AWV. Allergies silver (From TEGADERM AG MESH) Allergy (Mild, Verified 06/02/25 13:14) rash penicillin V Allergy (Unknown, Verified 06/02/25 13:14) anaphylaxis Penicillins (PENICILLINS) Allergy (Unknown, Verified 06/02/25 13:14) n/a Clindamycin HCl Allergy (Unknown, Uncoded 06/02/25 13:14) diarrhea Medication List - Last Reconciled 06/02/25 by Shavon Awad MD alendronate 70 mg PO QWEEK cholecalciferol (vitamin D3) 50 mcg PO DAILY escitalopram oxalate 20 mg PO DAILY ibandronate 150 mg PO QMONTH ketoconazole 2% 1 appl topical DAILY melatonin 9 mg PO BEDTIME PRN rosuvastatin 10 mg PO BEDTIME HPI AWV HPI Details Initiated the conversation about Advanced Directives. Advanced Directives help? patients prepare for current and future decisions about their medical treatment? and place of care. Discussed with patient that it is a process where a patients? current condition and prognosis are reviewed, their wishes for information? regarding their illness are elicited, and likely medical dilemmas are presented? and options discussed. The form can be amended as needed, reviewed yearly and? make changes as needed IPPE/AWV ? year old presents? for her ? Annual? Wellness Visit, initial visit.? Medical / Social History Reviewed? Past Medical History ?Yes? . ? [place]? of Care / Care Team list updated ?Yes . ? Surgical/Hospitalization? History ?Yes . ? Current Medications? (including OTC and supplements) ?Yes . ? Family History ?Yes? . ? Tobacco? Control form ?Yes . ? AUDIT-C (Alcohol use) form? ?Yes . ? Illicit drug use in Social? History ?Yes . ? Current diagnosis of? depression? ?No ? Appropriate PHQ2/PHQ9? completed ?Yes . ? Data entered by ?Medical? Supervisor Contact Lens and reviewed by provider ? Fall Risk ? Fall? History? Have you had any falls with? injury in the past year? ?No . ? Have you had two or more? falls in the past year? ?No . ? Fall Risk Assessment: ?No? falls in the past year . ? HRA filled out by? the patient, reviewed by Provider and scanned. ? IPPE/AWV ? Balance? [place]? ?Yes . ? Tandem? walk ?Yes . ? Walk and? Turn ?Yes . ? Rise from? sit to stand ?Yes . ?Vision? Corrective? lens ?Yes ? Vision? screen ? Up-to-date, has an appointment [] for vision? screening and glaucoma screening ?Hearing? Whisper? test ?pass .? Initiated the conversation about Advanced Directives. Advanced Directives help? patients prepare for current and future decisions about their medical treatment? and place of care. Discussed with patient that it is a process where a patients? current condition and prognosis are reviewed, their wishes for information? regarding their illness are elicited, and likely medical dilemmas are presented? and options discussed. The form can be amended as needed, reviewed yearly and? make changes as needed Written? Plan?Completed. See Patient? Documents. [facility] Medical History (Updated 06/02/25 @ 14:03 by Shavon Awad MD) Osteoporosis Vitamin D deficiency History of electroconvulsive therapy Serrated adenoma of colon Arthralgia Depression Acute anxiety Somatic delusion IBS (irritable bowel syndrome) Surgical History (Updated 06/02/25 @ 13:58 by Shavon Awad MD) H/O colonoscopy Family History Father No problems noted. Mother Leukemia Cancer Family/Other Lung cancer Social History Household Members: Spouse Household Members Other:: son comes every other weekend Housing: House Are you a primary resident care supervisor to a significant other at home: No Do you presently have visiting nurse or other home services: No Alcohol intake: never Comment: pt low risk for falls Patient Tobacco Use Status: Current everyday Tobacco user Tobacco use type: Cigarette Cigarette Packs Per Day: 0.5 Cigarettes Per Day: 5 Years Smoked: 20 e-Cigarette/Vaping Use: Never Used Second Hand Smoke Exposure: No Substance Use Type: Caffiene Advance Directives Date on File: 07/29/21 service: No Current occupational status: disabled Sexual orientation: Straight/Heterosexual Cognitive needs: No Hearing needs: No Vision needs: Yes Questionnaire Medicare Wellness Checkup What [age] your [age] 65-69 What gender do you identify with?: female During the past 4 weeks, how much have you been bothered by emotional problems such as feeling anxious, depressed, irritable, sad or downhearted, and blue?: not at all During the past 4 weeks, has your physical & emotional health limited your social activities with family, friends, neighbors, or groups?: not at all During the past 4 weeks, how much bodily pain have you generally had?: no pain During the past 4 weeks, was someone available to help you if you needed & wanted help?: yes, as much as I wanted During the past 4 weeks, what was the hardest physical activity you could do for at least 2 minutes?: moderate Can you get to places out of walking distance without help? (For eg., can you travel alone on buses, taxis or drive your car?): Yes Can you go shopping for groceries or clothes without someone's help?: Yes Can you prepare your own meals?: Yes Can you do your housework without help?: Yes Because of any health problems, do you need the help of another person with your personal care needs such as eating, bathing, dressing or getting around the house?: No Can you handle your own money without help?: Yes During the past 4 weeks, how would you rate your health in general?: very good During the past 4 weeks how have things been going for you?: pretty well Are you having difficulties driving your car?: no Do you always fasten your seat belt when you are in a car?: yes, usually During past 4 weeks, have you been bothered by the following: never: Falling or dizzy when standing up, Sexual problems?, Trouble eating well?, Teeth or denture problems?, Problems using the telephone? and Tiredness or fatigue? Have you fallen 2 or more times in the past year?: No Are you afraid of falling?: No Are you a smoker?: yes, but I'm not ready to quit During the past 4 weeks, how many drinks of wine, beer, or other alcoholic beverages did you have?: no alcohol at all Do you exercise for about 20 minutes 3 or more times a week?: yes, most of the time Have you been given information to help with the following?: yes: Hazards in your house that might hurt you? and yes: Keeping track of your medications? How often do you have trouble taking medicines the way you have been told to take them?: I always take medicine as prescribed How confident are you that you can control & manage most of your health problems?: very confident What is your race?: White PHQ-9 Over the last 2 weeks, how often have you been bothered by any of the following problems? 1. Little interest or pleasure in doing things: not at all 2. Feeling down, depressed, or hopeless: not at all 3. Trouble falling or staying asleep, or sleeping too much: not at all 4. Feeling tired or having little energy: not at all 5. Poor appetite or overeating: not at all 6. Feeling bad about yourself - or that you are a failure or have let yourself or your family down: not at all 7. Trouble concentrating on things, such as reading the newspaper or watching television: not at all 8. Moving or speaking so slowly that other people could have noticed. Or the opposite - being so fidgety or restless that you have been moving around a lot more than usual: not at all 9. Thoughts that you would be better off or of hurting yourself in some way: not at all Total score: 0 Depression Screening Interpretation: Negative Depression Screening Done: Yes 55940 - PHQ-9 Billing: Yes Source: Developed by Drs. Byron Mark, Samantha Johnson, Pelon Herrera and colleagues, with an educational yanni from [employer]. Review of Systems Const All systems reviewed & are unremarkable except as noted in HPI and below Eyes Reports no additional complaints ENT Reports no additional complaints Card Reports no additional complaints Resp Reports no additional complaints GI Reports no additional complaints Reports no additional complaints Physical Exam Vital Signs: Last Vital Signs Temp 98.1 F 06/02/25 13:12 Pulse 57 06/02/25 13:12 Resp 18 06/02/25 13:12 BP 128/82 06/02/25 13:12 Pulse Ox 99 06/02/25 13:12 Oxygen Delivery Method Room Air 06/02/25 13:12 BMI result Body Mass Index 22.8 Const General: no acute distress HEENT Head: Yes normal to inspection Ears: TM's normal bilaterally Eyes General: appearance normal, both eyes and all related structures Neck Neck: Yes no lymphadenopathy and Yes supple Resp Effort & Inspection: normal respiratory effort Auscultation: clear to auscultation bilaterally Cardio Rhythm: regular rhythm Heart sounds: S1 normal heart sound present and S2 normal heart sound present GI Inspection: Yes normal to inspection Palpation (GI): Soft to palpation Percussion: Yes normal to percussion Auscultation: normal bowel sounds Extrem General: Yes no clubbing, cyanosis or edema Assessment & Plan Assessment & Plan (1) Hyperlipidemia: Comment: Started Crestor 03/13 Code(s): E78.5 - Hyperlipidemia, unspecified Plan: Continue crestor (2) Annual physical exam: Code(s): Z00.00 - Encounter for general adult medical examination without abnormal findings Plan: Well-balanced diet regular physical activity discussed with the patient. She is up-to-date with the mammogram (3) Severe recurrent major depression with psychotic features: Comment: f/u with psychiatrist and therapist, stable on escitalopram Code(s): F33.3 - Major depressive disorder, recurrent, severe with psychotic symptoms Plan: Follow-up with psychiatry (4) Osteoporosis: Comment: Patient took Fosamax for 1 year in 2022 but not regularly because she was forgetting to take it, DEXA 03/2025 T score -2.9 L hip, start Boniva 05/2025 Code(s): M81.0 - Age-related osteoporosis without current pathological fracture Plan: Patient will try alendronate for better compliance and continue vitamin-D with calcium. Repeat DEXA in 2 years (5) Serrated adenoma of colon: Comment: 2015 colonoscopy, 3 polyps 05/2025 colonoscopy, Dr. Abreu Code(s): D12.6 - Benign neoplasm of colon, unspecified Plan: Follow-up with GI next week to discuss the follow-up colonoscopy Orders: Orders Comprehensive [place]. Panel Fast 1 Year E55.9 - Vitamin D deficiency, unspecified, E78.5 - Hyperlipidemia, unspecified, Z00.00 - Encounter for general adult medical examination without abnormal findings Complete Blood Count Auto Diff 1 Year E55.9 - Vitamin D deficiency, unspecified, E78.5 - Hyperlipidemia, unspecified, Z00.00 - Encounter for general adult medical examination without abnormal findings Lipid Panel 1 Year E55.9 - Vitamin D deficiency, unspecified, E78.5 - Hyperlipidemia, unspecified, Z00.00 - Encounter for general adult medical examination without abnormal findings Vitamin D 25-OH Total 1 Year E55.9 - Vitamin D deficiency, unspecified, E78.5 - Hyperlipidemia, unspecified, Z00.00 - Encounter for general adult medical examination without abnormal findings TSH reflex Free T4 1 Year E55.9 - Vitamin D deficiency, unspecified, E78.5 - Hyperlipidemia, unspecified, Z00.00 - Encounter for general adult medical examination without abnormal findings UA w Microscopic 1 Year E55.9 - Vitamin D deficiency, unspecified, E78.5 - Hyperlipidemia, unspecified, Z00.00 - Encounter for general adult medical examination without abnormal findings Medications: New ibandronate 150 mg PO QMONTH 3 tabs 6RF Refilled rosuvastatin 10 mg PO BEDTIME 90 tabs 3RF Quality Reporting (2019) Depression/Bipolar (159/160/161/177) PHQ-9: Total score: 0 Coding Level of Care Code Medicare Subsequent (G0439) Diagnoses Hyperlipidemia E78.5 Annual physical exam Z00.00 Severe recurrent major depression with psychotic features F33.3 Osteoporosis M81.0 Serrated adenoma of colon D12.6 CPT Codes Advance Care Planning - Advance Care Planning discussion: On file, no changes ([id number]) Advance Care Planning - Time spent: 1-15 minutes, on File ([id number]) Additional Codes PHQ-9 - 62812 - PHQ-9 Billing: Yes ([id number]) Advance Care Planning Advance Care Planning discussion: On file, no changes Forms completed: Health Care Proxy Time spent: 1-15 minutes, on File
[2025-06-02 13:12] VITALS: BP 128/82; PULSE 57; RESP 18; TEMP 36.7; O2SAT 99; BMI 22.8
--- OUTSIDE RECORDS SUMMARY | 2025-06-02 15:04 | XMS_ITS | Patient Health Record ---
[facility] Address [address] [place] [address] Care Team Providers Care Manager Administration Name Role Phone Shavon Awad MD Primary Care Provider Unavaila cristi Ledezma Jody Unavailable [phone] Allergies Allergen (clinical drug ingredient) Drug/Non Drug [...] Ordered Date Performed Result Body Sit e 25452-BLVLLOU NAIL, 6 OR MORE 10/06/2024 N/A [id number] NAIL, 6 OR MORE 11/28/2024 N/A 44289 I&D ABSCESS- SIMPLE,SINGLE 11/28/2024 N/A 25808-[id number] NAIL, 6 OR MORE 05/11/2025 N/A Encounters Encounter Location Date Provider Diagnosis [facility] [address] [address] 06/23/2024 Jody Black Skin ulcer of toe of right foot, limited to breakdown of skin L97.511 and Cellulitis of right foot L03.115 [facility] [address] [address] 10/06/2024 Jody Black Cellulitis of right foot L03.115 ; Tinea unguium B35.1 ; Pain in right toe(s) M79.674 ; Pain in left toe(s) M79.675 ; Cutaneous abscess of right foot L02.611 and Pain of right heel M79.[address] [address] 11/28/2024 Jody Black Tinea unguium B35.1 ; Cutaneous abscess of right foot L02.611 ; Pain in right toe(s) M79.674 ; Pain in left toe(s) M79.675 and Pain of right heel M79.671 [facility] [address] 05/11/2025 Jody Black Tinea pedis of both feet B35.3 ; Cutaneous abscess of right foot L02.611 ; Tinea unguium B35.1 ; Pain in right toe(s) M79.674 and Pain in left toe(s) M79.[address] [address] [facility] [address] 11/28/2024 Jody Black [facility] [address] 01/11/2025 [facility] [address] 02/27/2025 Jody Black [facility] [address] 05/10/2025 Jody Black Assessments Encounter Date Diagnosis (ICD Code) Assessment Notes Treatment Notes Treatment Clinical Notes Section Notes 06/23/2024 Cellulitis of right foot (ICD-10 - L03.115) Response to treatment,Resol buzz 06/23/2024 Skin ulcer of toe of right foot, limited to breakdown of skin (ICD-10 - L97.511) Response to treatment,,Reso lved 10/06/2024 Tinea unguium (ICD-10 - B35.1) 10/06/2024 Cellulitis of right foot (ICD-10 - L03.115) 11/28/2024 Tinea unguium (ICD-10 - B35.1) 11/28/2024 Cutaneous abscess of right foot (ICD-10 - L02.611) 05/11/2025 Cutaneous abscess of right foot (ICD-10 - L02.611) 05/11/2025 Tinea pedis of both feet (ICD-10 - B35.3) Patient Educated with: ATHELETE .pdf (ATHELETE .pdf) 05/11/2025 Tinea unguium (ICD-10 - B35.1) 11/28/2024 Pain in right toe(s) (ICD-10 - M79.674) 10/06/2024 Pain in right toe(s) (ICD-10 - M79.674) 10/06/2024 Pain in left toe(s) (ICD-10 - M79.675) 11/28/2024 Pain in left toe(s) (ICD-10 - M79.675) 05/11/2025 Pain in right toe(s) (ICD-10 - M79.674) 05/11/2025 Pain in left toe(s) (ICD-10 - M79.675) 11/28/2024 Pain of right heel (ICD-10 - M79.671) 10/06/2024 Cutaneous abscess of right foot (ICD-10 - L02.611) 10/06/2024 Pain of right heel (ICD-10 - M79.671) 06/23/2024 Other Plan Of Treatment Pending Test Test Name Order Date [id number] NAIL, 6 OR MORE 05/12/2022 95150-HYPQGHS NAIL, 6 OR MORE 08/11/2022 72927-WGSOXCU NAIL, 6 OR MORE 12/15/2022 46087-OLJWPIG NAIL, 6 OR MORE 03/30/2023 39616-VDALANQ NAIL, 6 OR MORE 08/03/2023 98017-TETIDET NAIL, 6 OR MORE 11/16/2023 69753-FOTVUXH NAIL, 6 OR MORE 05/30/2024 70235-QIWOMHG NAIL, 6 OR MORE 10/06/2024 04023-WERGXMO NAIL, 6 OR MORE 11/28/2024 41763-EUFRCPM NAIL, 6 OR MORE 05/11/2025 36368- Debride <25 sq cm 05/30/2024 98927- Debride <25 sq cm 12/15/2022 57751- Debride <25 sq cm 08/11/2022 97147 I&D ABSCESS- SIMPLE,SINGLE 025 52212 - Shave Biopsy of Skin Lesion 07/22 Next Appt Details Provider Name:Jody Ledezma , 10/02/2025 08:30:00 AM, [address] [facility], [place], [address], Insurance Providers Payer Name Payer Address Payer Phone Subscriber Number Group Number Insured Name Patient Relationship to Insured Coverage Start Date Coverage End Date Medicare National [employer] [address] [place] [address] [id number] Corinna Lawson Self - patient is the insured [employer] [address] [place] [address] [id number] Corinna Lawson Self - patient is the insured Medical (General) History Medical History History ICD Code Anxiety Depression somatic delusion Headaches/Migraines Measles Mumps Chicken pox Visceral Hypersensitivity Surgical History Surgery Date(Month/Year) tonsillectomy teeth extraction colonoscopy endoscopy
== END 2025-06-02 13:51 | disposition home or self-care (01) ==
LOC: HO.HMCC 12:45
PROVIDERS: PCP Internal Medicine; Visit Provider Internal Medicine
DX: Z00.00 Encounter for general adult medical examination without abnormal findings (principal); E78.5 Hyperlipidemia, unspecified; F33.3 Major depressive disorder, recurrent, severe with psychotic symptoms; M81.0 Age-related osteoporosis without current pathological fracture; D12.6 Benign neoplasm of colon, unspecified

== ENCOUNTER → 2025-06-02 12:45 | Outpatient (BNVA) | payer MEDICARE, SELFPAY | PROVIDERS: PCP Internal Medicine; Visit Provider Internal Medicine | DX: Z00.00 Encounter for general adult medical examination without abnormal findings (principal); E78.5 Hyperlipidemia, unspecified; F33.3 Major depressive disorder, recurrent, severe with psychotic symptoms; M81.0 Age-related osteoporosis without current pathological fracture; E55.9 Vitamin D deficiency, unspecified; Z86.0101 Personal history of adenomatous and serrated colon polyps | CPT/HCPCS: 96127 ==

== ENCOUNTER 2025-06-12 11:47 | Outpatient (AMB) | payer MEDICARE, SELFPAY ==
--- OUTSIDE RECORDS SUMMARY | 2025-03-06 05:00 | XMS_ITS ---
Author Organization [facility] Address [address] [place] [address] Care Team Providers Care Railroader Name Role Phone Shavon Awad MD Primary Care Provider Unavaila ble Black, Jody Unavailable [phone] Allergies Allergen (clinical drug ingredient) Drug/Non Drug [...] Active Encounters Encounter Location Date Provider Diagnosis [facility] [place] [address] [place] [address] 03/06/2025 Jody Darien Plan Of Treatment Next Appt Details Provider Name:Jodyrenay Ledezma , 10/02/2025 08:30:00 AM, [address] [place], [address], Progress Notes * Corinna LAWSON ADOB:1955 (69 yo F)Acc No.[id number]:03/06/2025 Progress Note Patient: Mariya CARRINGTONREGDonaldCorinna Charles Provider: Robin Ledezma DPM :1955 A ge:69 Y S ex:Female Date:03/06/2025 Address:[address] [place], [place] [address] Pcp:Shavon Awad MD Subjective: * Chief Complaints: [...] 03/06/2025 Generated for Julio Sharpe/Janet on: 0 06/12/2025 02:30 PM EDT
[2025-06-12 11:53] VITALS: BP 144/72; PULSE 68; O2SAT 99; BMI 22.7
--- NOTE | 2025-06-12 11:53 | A.OFFVIS_ITS ---
Vital Signs 06/12/25 11:53 Height 5 ft 4 in Weight 132 lb BMI 22.7 BP 144/72 H Blood Pressure Location Rt brachial Position Sitting Pulse 68 Pulse Source Pulse Oximeter Pulse Oximetry (%) 99 Oxygen Delivery Method Room Air Intake Visit Reasons: s/p colo Brady Intake Note: Est pt for mgmt of IBS. S/P [place] w/ Dr. Abreu. CC: Pt denies any GI sx or concerns at this time. Health Services Administrator Required: No Accompanied by: Self / Same As Patient Allergies silver (From Check-Cap AG MESH) Allergy (Mild, Verified 06/12/25 11:54) rash penicillin V Allergy (Unknown, Verified 06/12/25 11:54) anaphylaxis Penicillins (PENICILLINS) Allergy (Unknown, Verified 06/12/25 11:54) n/a clindamycin Adverse Reaction (Unknown, Verified 06/12/25 11:54) Diarrhea HPI HPI s/p colo Brady: Details: LAST VISIT: Screen for colon cancer Patient denies any GI, cardiac or respiratory symptoms.? Denies any issues with anesthesia in the past.? Denies any history of sleep apnea.? No history infectious diseases in the past or present.? Not on any anticoagulation therapy.? No family or personal history of colon cancer or polyps.? Patient denies melena, hematochezia, unintentional weight loss or ribbon like stools.? Discussed at length the pre-procedure,? prep, diet & medications as well as what to expect prior, during and after the procedure.?? Stressed the importance of good bowel prep. ?Recommended the use of Vaseline or Calmoseptine OTC & baby wipes with bowel movements to promote comfort.? ?Patient verbalizes understanding and agrees to plan of care.? She was given the opportunity to ask questions and all questions answered.? We will see her after the procedure.? Plan New bisacodyl (Dulcolax (bisacodyl)) take 2 tabs at noon the day before your colonoscopy 10 mg (2 x 5 mg) PO ONCE 1 day 2 tabs 0RF Z12.11 polyethylene glycol 3350 (Miralax) As directed by gastroenterology department at [facility] 238 grams PO ONCE 238 grams 0RF Z12.11 COLONOSCOPY Findings: Terminal Ileum: Not evaluated Cecum: A 12-15 mm flat polyp - raised with 3 cc of [place]view and removed with a stiff hot snare Ascending Colon: A 2 cms flat polyp in the proximal AC at 80 cms (opposite the ileocecal valve). Polyp was raised with 4 cc of Eleview and removed with a stiff hot snare. Polypectomy site was closed with 2 hemoclips and marked with Nancy ink A 3.5 cms flat polyp at 75 cms - polyp was raised with 5 cc of Eleview and removed with a stiff hot snare. Polypectomy site was closed with 3 hemoclips and marked with Nancy ink Transverse Colon: Normal Descending Colon: Normal Sigmoid Colon: Moderate diverticulosis Rectum: Normal Ano-rectum: Normal Colon preparation: Good after some irrigation. [place] Bowel Preparation Scale Right colon; 2 Transverse colon: 2 Left colon; 2 (0 = Unprepared colon segment with mucosa not seen due to solid stool that cannot be cleared. 1 = Portion of mucosa of the colon segment seen, but other areas of the colon segment not well seen due to staining, residual stool and/or opaque liquid. 2 = Minor amount of residual staining, small fragments of stool and/or opaque liquid, but mucosa of colon segment seen well. 3 = Entire mucosa of colon segment seen well with no residual staining, small fragments of stool or opaque liquid) Impression and Post Procedure Diagnosis: Colonoscopy Findings: Three medium to large sized polyps were removed A few additional smaller polyps in the right colon and rectum were not removed due to excessive length of the procedure Moderate diverticulosis seen in the sigmoid colon Plan: I will send a letter with biopsy results Repeat Colonoscopy in 6 months if polyps are adenomatous and 3 year if polyps are hyperplastic. Above findings were reviewed with the patient and relevant handouts were given and the discharge area. BIOPSIES SHOWED: A. Colon, cecum, polypectomy: Sessile serrated polyp/lesion without dysplasia. B. Colon, ascending polyp #1, polypectomy: Sessile serrated polyp/lesion without dysplasia. C. Colon, ascending polyp #2, polypectomy: Sessile serrated polyp/lesion without dysplasia. Letter sent with the patient with biopsy results. Patient was placed on the colonoscopy recall list for repeat colonoscopy in 6 months. TODAY'S VISIT Patient is here today for follow-up and to discuss colonoscopy results. Patient was found to have large polyps largest 3.5 cm all sessile serrated polyps. Colonoscopy was recommended in 6 months due to the type of polyps. Patient reports no ill effects from the prep, anesthesia or procedure itself. Patient reports to be feeling fairly well. Reports that she is moving her bowels without any issues. Denies melena, hematochezia. Patient denies any dyspepsia, dysphagia or odynophagia. Denies any GI concerning symptoms here to discuss colonoscopy results and plan [facility] Medical History Osteoporosis Vitamin D deficiency History of electroconvulsive therapy Serrated adenoma of colon Arthralgia Depression Acute anxiety Somatic delusion IBS (irritable bowel syndrome) Surgical History H/O colonoscopy Family History Father No problems noted. Mother Leukemia Cancer Family/Other Lung cancer Social History Household Members: Spouse Household Members Other:: son comes every other weekend Housing: House Are you a primary child care attendant to a significant other at home: No Do you presently have visiting nurse or other home services: No Alcohol intake: never Comment: pt low risk for falls Patient Tobacco Use Status: Current everyday Tobacco user Tobacco use type: Cigarette Cigarette Packs Per Day: 0.5 Cigarettes Per Day: 5 Years Smoked: 20 e-Cigarette/Vaping Use: Never Used Second Hand Smoke Exposure: No Substance Use Type: Caffiene Advance Directives Date on File: 07/29/21 service: No Current occupational status: disabled Sexual orientation: Straight/Heterosexual Cognitive needs: No Hearing needs: No Vision needs: Yes Review of Systems Const Denies weight gain and Denies weight loss ENT Reports no additional complaints, Denies dysphagia and Denies odynophagia Card Reports no additional complaints Resp Reports no additional complaints GI Denies abdominal pain, Denies belching, Denies melena, Denies bloating, Denies change in bowel habits, Denies dysphagia, Denies excessive flatus, Denies dyspepsia, Denies heartburn, Denies diarrhea, Denies loose stools, Denies nausea, Denies odynophagia and Denies vomiting Musc Reports no additional complaints Neuro Reports no additional complaints Psych Reports no additional complaints Endo Reports no additional complaints Physical Exam Vital Signs: Last Vital Signs Pulse 68 06/12/25 11:53 BP 144/72 H 06/12/25 11:53 Pulse Ox 99 06/12/25 11:53 Oxygen Delivery Method Room Air 06/12/25 11:53 BMI result Body Mass Index 22.7 Const General: healthy appearing, no acute distress and well developed Nutritional Appearance: well nourished Orientation/consciousness: patient oriented x3 HEENT Head: Yes normal to inspection, Yes normocephalic and Yes atraumatic Face and sinus: Yes normal facial exam Mouth: Normal oral and palatal mucosa present Throat: Yes posterior oropharynx normal, Yes tonsils normal and Yes uvula midline Eyes General: appearance normal, both eyes and all related structures Neck Neck: Yes normal visual inspection, Yes full ROM and Yes trachea midline Thyroid: Thyroid normal Resp Effort & Inspection: normal respiratory effort, able to speak in complete sentences, no tracheal deviation and symmetric chest movement Auscultation: clear to auscultation bilaterally Cardio Rate: regular rate Heart sounds: S1 normal heart sound present and S2 normal heart sound present GI Inspection: Yes normal to inspection and No distended Palpation (GI): Soft to palpation, not firm, nontender and No hepatosplenomegaly present Auscultation: normal bowel sounds General: Yes no CVA tenderness Back/Spine/Pelvis Back: no CVA tenderness Skin General skin exam: elasticity normal, turgor normal and dry skin Neuro General: patient oriented x3 Psych Appearance: grossly normal Mental Status: mental status grossly normal Speech and movement: Normal speech and movement present Assessment & Plan Assessment & Plan (1) H/O colonoscopy: Code(s): Z98.890 - Other specified postprocedural states Category: Surgical (2) IBS (irritable bowel syndrome): Code(s): K58.9 - Irritable bowel syndrome, unspecified Category: Medical Qualifiers: Irritable bowel syndrome type: without diarrhea Qualified Code(s): K58.9 - Irritable bowel syndrome, unspecified (3) Serrated adenoma of colon: Code(s): D12.6 - Benign neoplasm of colon, unspecified Category: Medical Plan Order placed for colonoscopy for November. Patient denies any GI concerning symptoms. Discussed with patient again how to prep. Order placed for MiraLax and Dulcolax. Patient reports he did well with the prep. What to expect before during and after procedure discussed with patient. Stressed the importance of good bowel prep and clear liquid diet day before procedure. I will see patient after the procedure. She was encouraged to call the office if she will have any GI concerning symptoms. Patient is agreeable to current plan of care and verbalizes understanding of instructions. She was given the opportunity to ask questions and all questions answered. Thank you for allowing me to participate in her care Orders: Referrals GI Procedure Notification Z12.11 - Encounter for screening for malignant neoplasm of colon Medications: New polyethylene glycol 3350 (Miralax) As directed by gastroenterology department at [facility] 238 grams PO ONCE 238 grams 0RF Z12.11 - Encounter for screening for malignant neoplasm of colon bisacodyl (Dulcolax (bisacodyl)) take 4 tabs at noon the day before your colonoscopy 20 mg (4 x 5 mg) PO ONCE 4 tabs 0RF constipation 1 day Z12.11 - Encounter for screening for malignant neoplasm of colon Coding Level of Care Code Est Pt Level 3 (17527) Diagnoses H/O colonoscopy Z98.890 Irritable bowel syndrome without diarrhea K58.9 Irritable bowel syndrome type: without diarrhea Serrated adenoma of colon D12.6 Time Spent (min) 30 Comment 20 minutes spent with patient and additional 10 minutes spent reviewing her records
--- OUTSIDE RECORDS SUMMARY | 2025-06-12 14:31 | XMS_ITS | Patient Health Record ---
[facility] Address [address] [place] [address] Care Team Providers Care Crab Fisherman Name Role Phone Shavon Awad MD Primary Care Provider Unavaila cristi Ledezma Jody Unavailable [phone] Allergies Allergen (clinical drug ingredient) Drug/Non Drug [...] Ordered Date Performed Result Body Sit e 02863-[id number] NAIL, 6 OR MORE 10/06/2024 N/A [id number] NAIL, 6 OR MORE 11/28/2024 N/A 00156 I&D ABSCESS- SIMPLE,SINGLE 11/28/2024 N/A [id number] NAIL, 6 OR MORE 05/11/2025 N/A Encounters Encounter Location Date Provider Diagnosis [facility] [address] [address] 06/23/2024 Jody Black Skin ulcer of toe of right foot, limited to breakdown of skin L97.511 and Cellulitis of right foot L03.[address] [facility] [address] [address] 10/06/2024 Jody Black Cellulitis of right foot L03.115 ; Tinea unguium B35.1 ; Pain in right toe(s) M79.674 ; Pain in left toe(s) M79.675 ; Cutaneous abscess of right foot L02.611 and Pain of right heel M79.[address] [address] 11/28/2024 Jody Black Tinea unguium B35.1 ; Cutaneous abscess of right foot L02.611 ; Pain in right toe(s) M79.674 ; Pain in left toe(s) M79.675 and Pain of right heel M79.671 [facility] [address] 05/11/2025 Jody Black Tinea pedis of both feet B35.3 ; Cutaneous abscess of right foot L02.611 ; Tinea unguium B35.1 ; Pain in right toe(s) M79.674 and Pain in left toe(s) M79.[address] [address] [facility] [address] 11/28/2024 Jody Black [facility] [address] 01/11/2025 [facility] [address] 02/27/2025 Jody Black [facility] [address] 05/10/2025 Jody Black Assessments Encounter Date Diagnosis [...] Treatment Pending Test Test Name Order Date [id number] NAIL, 6 OR MORE 05/12/2022 [id number] NAIL, 6 OR MORE 08/11/2022 [id number] NAIL, 6 OR MORE 12/15/2022 [id number] NAIL, 6 OR MORE 03/30/2023 [id number] NAIL, 6 OR MORE 08/03/2023 [id number] NAIL, 6 OR MORE 11/16/2023 [id number] NAIL, 6 OR MORE 05/30/2024 [id number] NAIL, 6 OR MORE 10/06/2024 [id number] NAIL, 6 OR MORE 11/28/2024 [id number] NAIL, 6 OR MORE 05/11/2025 97650- Debride <25 sq cm 05/30/2024 39745- Debride <25 sq cm 12/15/2022 06611- Debride <25 sq cm 08/11/2022 95648 I&D ABSCESS- SIMPLE,SINGLE 025 63019 - Shave Biopsy of Skin Lesion 07/22 Next Appt Details Provider Name:Jody Ledezma , 10/02/2025 08:30:00 AM, [address] [facility], [place], [address], Insurance Providers Payer Name Payer Address Payer Phone Subscriber Number Group Number Insured Name Patient Relationship to Insured Coverage Start Date Coverage End Date Medicare National [employer] [address] [place] [address] [id number] Corinna Lawson Self - patient is the insured [employer] [address] [place] [address] [id number] Corinna Lawson Self - patient is the insured Medical (General) History Medical History History ICD Code Anxiety Depression somatic delusion Headaches/Migraines Measles Mumps Chicken pox Visceral Hypersensitivity Surgical History Surgery Date(Month/Year) tonsillectomy teeth extraction colonoscopy endoscopy
== END 2025-06-12 12:58 | disposition home or self-care (01) ==
LOC: HO.HGI 11:48
PROVIDERS: PCP Internal Medicine; Visit Provider Nurse Practitioner Family
DX: Z98.890 Other specified postprocedural states (principal); K58.9 Irritable bowel syndrome, unspecified; D12.6 Benign neoplasm of colon, unspecified
CPT/HCPCS: 99213

== ENCOUNTER → 2025-06-12 11:47 | Outpatient (BNVA) | payer MEDICARE, SELFPAY | PROVIDERS: PCP Internal Medicine; Visit Provider Nurse Practitioner Family | DX: K58.9 Irritable bowel syndrome, unspecified (principal); D12.6 Benign neoplasm of colon, unspecified; Z98.890 Other specified postprocedural states | CPT/HCPCS: 99212 ==